=== PATIENT | female | born 1935 | race Caucasian/White ===

== ENCOUNTER → 2016-04-08 | Outpatient (CLI) | payer OTHER ==
[~2016-04-08] MED LIST: ACET-1175 PO; ALPR0.5T PO; ALPR1TAB2 PO; ASPCH81X PO; ATOR10TA88 PO; ATRINS INH; CALCIUM CARBONATE PO; CALCTAB7 PO; CHOL20009 PO; CMD2 PO; CRAN1CAP15 PO; CRD200 PO; DOCU100C31 PO; DOXY1TAB6 PO; FURO40TA3 PO; GABA1CAP4 PO; GFNSR600 PO; ISOS30TA3 PO; LEVO-519 PO; LPT/40 PO; LVQ750 PO; METO-551 PO; METO25TA3 PO; METO50TA7 PO; PANT1TAB48 PO; POLYSOL4 OPB; POTA-327 PO; POTA10CA28 PO; PRED1SUS3 OPL; PRLSR20 PO; VALA1TAB31 PO; WARF3TAB6 PO; WARF5TAB7 PO; XPNINS1255 INH; ZNT/150 PO
[2016-04-08 08:41] LABS: INR 1.6 (0.9-1.1); PROTHROMBIN TIME (PATIENT) 17.7 SECONDS (9.0-12.0)
== END | disposition home or self-care (01) ==
LOC: C.LABCC 07:46
PROVIDERS: ATTEND Internal Medicine
DX: I48.91 Unspecified atrial fibrillation (principal)

== ENCOUNTER → 2016-04-10 | Outpatient (CLI) | payer OTHER ==
[~2016-04-10] MED LIST changes: +ALPR-411 PO; +AMIO200T4 PO; +ATOR10TA82 PO; -ATOR10TA88 PO; +CEPH500C PO; +CEPH500C2 PO; +CRANCAP4 PO; +DIPH1TAB87 PO; +FRS/40 PO; +KETO2SHA TOP; +LCTX PO; +METO25TA56 PO; +MICO12CR; +PANT1TAB3 PO; -PANT1TAB48 PO
[2016-04-10 12:16] LABS: INR 1.6 (0.9-1.1); PROTHROMBIN TIME (PATIENT) 17.8 SECONDS (9.0-12.0)
== END ==
LOC: C.LABCC 11:39
PROVIDERS: ATTEND Internal Medicine
DX: I48.91 Unspecified atrial fibrillation (principal)

== ENCOUNTER → 2016-04-15 | Outpatient (CLI) | payer OTHER ==
[~2016-04-15] MED LIST changes: -ALPR-411 PO; -AMIO200T4 PO; -ATOR10TA82 PO; +ATOR10TA88 PO; -CEPH500C PO; -CEPH500C2 PO; -CRANCAP4 PO; -DIPH1TAB87 PO; -FRS/40 PO; -KETO2SHA TOP; -LCTX PO; -METO25TA56 PO; -MICO12CR; -PANT1TAB3 PO; +PANT1TAB48 PO
[2016-04-15 08:45] LABS: INR 2.2 (0.9-1.1); PROTHROMBIN TIME (PATIENT) 24.8 SECONDS (9.0-12.0)
== END ==
LOC: C.LABCC 08:14
PROVIDERS: ATTEND Internal Medicine
DX: I48.91 Unspecified atrial fibrillation (principal)

== ENCOUNTER → 2016-04-27 | Outpatient (CLI) | payer OTHER ==
[2016-04-28 00:34] LABS: BASO % 0.4 %; BASO ABS # 0.03 K/uL (0-0.2); HEMATOCRIT 38.4 % (37-47); IG% 0.1 %; LYMPH % 8.3 %; LYMPH ABS # 0.58 K/uL (1.2-3.4); MEAN CELL VOLUME 82.9 fL (80-100); MEAN CORPUSCULAR HEMOGLOBIN 26.3 pg (25-34); MEAN CORPUSCULAR HGB CONC 31.8 g/dl (32-36); MEAN PLATELET VOLUME 10.4 fL (7.4-10.4); NEUT % 70.2 %; PLATELET COUNT 266 K/uL (130-400); RED BLOOD COUNT 4.63 M/uL (4.2-5.4)
[2016-04-28 01:01] LABS: BLOOD UREA NITROGEN 29 mg/dl (7-18); CALCIUM 9.6 mg/dl (8.5-10.1); CARBON DIOXIDE 28 mmol/L (21-32); CHLORIDE 102 mmol/L (98-107); GLUCOSE 132 mg/dl (70-99); SODIUM 140 mmol/L (136-145)
[2016-04-28 01:18] LABS: URINE APPEARANCE TURBID (CLEAR); URINE BILIRUBIN NEG (NEG); URINE COLOR YELLOW; URINE EPITHELIAL CELL AUTO >30 /lpf (0-5); URINE NITRITE NEG (NEG); URINE PH 7.5 (4.5-7.5); URINE SPECIFIC GRAVITY 1.017 (1.000-1.030); UROBILINOGEN NEG (NEG)
[2016-04-28 01:34] LABS: ANISOCYTOSIS PRESENT; COMPLETE YES; POLYCHROMASIA 1+
[2016-04-28 01:36] LABS: MANUAL MICROSCOPIC REQUIRED? NO; REVIEW REQ? YES; SULFASALICYLIC ACID POS (NEG)
== END ==
LOC: C.LABCC 22:30
PROVIDERS: ATTEND Internal Medicine
DX: R41.82 Altered mental status, unspecified (principal)

== ENCOUNTER → 2016-04-29 | Outpatient (CLI) | payer OTHER ==
[2016-04-29 08:49] LABS: INR 1.6 (0.9-1.1); PROTHROMBIN TIME (PATIENT) 17.6 SECONDS (9.0-12.0)
== END ==
LOC: C.LABCC 08:16
PROVIDERS: ATTEND Internal Medicine
DX: I48.91 Unspecified atrial fibrillation (principal)

== ENCOUNTER → 2016-04-30 | Outpatient (CLI) | payer OTHER ==
[2016-04-30 08:43] LABS: INR 1.6 (0.9-1.1); PROTHROMBIN TIME (PATIENT) 17.4 SECONDS (9.0-12.0)
== END ==
LOC: C.LABCC 08:06
PROVIDERS: ATTEND Internal Medicine
DX: I48.91 Unspecified atrial fibrillation (principal)

== ENCOUNTER 2016-05-01 12:32 | Inpatient (IN) | payer OTHER ==
[~2016-05-01] VITALS: Ht 154.9 cm; Wt 107.2 kg
[~2016-05-01 12:32] MED LIST changes: -ATOR10TA88 PO; -ATRINS INH; -CALCTAB7 PO; -CMD2 PO; -DOCU100C31 PO; -FURO40TA3 PO; -GFNSR600 PO; -LEVO-519 PO; -LVQ750 PO; -METO-551 PO; -PANT1TAB48 PO; -POLYSOL4 OPB; -POTA10CA28 PO; -WARF3TAB6 PO; -XPNINS1255 INH
--- NOTE | 2016-05-01 13:08 | DIAGNOSTIC IMAGING REPORT ---
CHEST ONE VIEW PORTABLE CLINICAL HISTORY: sepsis COMPARISON STUDY: 02/05/2015 FINDINGS: The study is rotated. The heart is mildly enlarged. There is mild mediastinal soft tissue prominence unchanged the prior study. There is aortic tortuosity. There is been interval removal of the right internal jugular central venous catheter. There is mild elevation of the interstitium, a finding suggesting mild pulmonary vascular congestion. There is no focal pulmonary consolidation. There are no pleural effusions.[ IMPRESSION: Rotated portable study. Elevation of the interstitium consistent with mild pulmonary vascular congestion. Clinical and radiographic follow-up is recommended Electronically signed by: Lincoln Hilario M.D. 05/01/2016 1:06 PM Dictated Date/Time: 05/01/2016 1:05 PM
--- NOTE | 2016-05-01 13:19 | EMERGENCY ROOM VISIT NOTE ---
History Report prepared by Lynn: Florentino Cardenas Under the Supervision of: Dr. Marti Mota M.D. First contact with patient: 12:56 Chief Complaint: RESPIRATORY DISTRESS Stated Complaint: LETHARGIC Nursing Triage Summary: Pt to ED via [facility] from [facility]. Per report, pt noted to be lethargic over the weekend. Recently diagnosed with pneumonia and positive urine culture. Started on IM rocephin last Friday. Pt alert and oriented X4. SPO2 90-91% room air. Lungs rhonchi throughout. BP earlier today 70/40. History of Present Illness The patient is a 80 year old female who presents to the Emergency Room with complaints of worsening respiratory distress that started prior to arrival today. Per the nursing staff, the patient has been lethargic over the past few days, and she was diagnosed with pneumonia and a positive urine culture recently. The patient was started on Rocephin last Friday. The patient is currently sleepy and her O2 saturation is 90-91% on room air. The patient denies any abdominal pain. She is from [facility]. History limited secondary to lethargy. Source of History: nursing staff History Limited By: other (lethargy) Onset: Prior to arrival today Position: other (global - respiratory distress) Timing: worsening Associated Symptoms: No abdominal pain Note: Associated symptoms: Lethargy. Review of Systems ROS limited secondary to lethargy. Past Medical & Surgical Medical Problems: (1) CKD (chronic kidney disease), stage III (2) Coronary artery disease (3) Degenerative joint disease (4) Diverticular disease of colon (5) Dyslipidemia (6) Essential tremor (7) GERD (gastroesophageal reflux disease) (8) History of transient ischemic attack (9) Hypertension (10) Osteoporosis (11) Recurrent herpes simplex (12) Spinal stenosis of lumbar region Surgical Problems: (1) Status post coronary artery bypass grafting Family History Hypertension Social History Smoking Status: Never Smoker Alcohol Use: none Drug Use: none Marital Status: single Housing Status: skilled nursing Occupation Status: retired Current/Historical Medications Scheduled Alprazolam (Xanax), 1 TAB PO BID Alprazolam (Xanax), 0.5 MG PO QAM Amiodarone HCl (Amiodarone HCl), 100 MG PO QAM Aspirin (Aspirin Chewable), 81 MG PO QAM Atorvastatin (Lipitor), 10 MG PO DAILY Calcium Carbonate-Vitamin D W/ (Caltrate 600 Plus), 1 TAB PO DAILY Cholecalciferol (Vitamin D), 1 TAB PO QAM Cranberry-Vitamin C-Vitamin E (Cranberry), 1 CAP PO QAM Docusate Sodium (Docusate Sodium), 2 CAP PO HS Furosemide (Lasix), 40 MG PO DAILY Gabapentin (Gabapentin), 300 MG PO BID Isosorbide Mononitrate Ext Rel (Imdur Ext Rel), 30 MG PO QAM Levothyroxine Sodium (Synthroid), 1 TAB PO DAILY Metoprolol Tartrate (Lopressor), 50 MG PO QAM Metoprolol Tartrate (Lopressor), 25 MG PO HS Pantoprazole (Protonix), 1 TAB PO DAILY Polyethylene Glycol-Propylene (Systane), 1 DROPS OPB DAILY Potassium Chloride (Micro-K Ext Rel), 10 MEQ PO DAILY Ranitidine Hcl (Zantac), 150 MG PO HS Valacyclovir Hcl (Valtrex), 1 GM PO QAM Warfarin Sod (Jantoven), 3 MG PO PM Scheduled PRN Acetaminophen (Tylenol), 650 MG PO BID PRN for Pain or Fever Allergies Coded Allergies: Valproic Acid and Related (Verified Allergy, Mild, Depakote,face flushing. , 04/05/15) Cortisone (Verified Adverse Reaction, Mild, Cortisone shot, face flushing. , 04/05/15) Physical Exam Vital Signs Date Time Temp Pulse Resp B/P Pulse Ox O2 Delivery O2 Flow Rate FiO2 05/01/16 15:36 71 16 107/55 99 Nasal Cannula 2.0 05/01/16 14:27 67 20 96/53 100 Mask Nebulizer 05/01/16 13:05 93 Nasal Cannula 2.0 05/01/16 12:50 89 Room Air 05/01/16 12:43 91 Room Air 05/01/16 12:43 90 Room Air 05/01/16 12:43 37.2 71 18 95/45 90 Room Air 05/01/16 12:41 71 Physical Exam CONSTITUTIONAL: Appears lethargic, protecting airway, awake when prompted. Morbidly obese. HEENT: No icterus, moist mucous membranes NECK: No meningismus, trachea is midline. CARDIOVASCULAR: Regular rate, normal perfusion RESPIRATORY: Coarse breath sounds bilaterally, wheezing bilaterally. GASTROINTESTINAL: Non-tender GENITOURINARY: No flank tenderness MUSCULOSKELETAL: Full range of motion NEUROLOGIC: No acute gross focal deficits. PSYCHIATRIC: Normal affect SKIN: Normal for ethnicity. Medical Decision & Procedures ER Provider Diagnostic Interpretation: X-ray results as stated below per my interpretation and radiologist interpretation. Other radiology results as stated below per my review and radiologist interpretation. CHEST ONE VIEW PORTABLE CLINICAL HISTORY: sepsis COMPARISON STUDY: 02/05/2015 FINDINGS: The study is rotated. The heart is mildly enlarged. There is mild mediastinal soft tissue prominence unchanged the prior study. There is aortic tortuosity. There is been interval removal of the right internal jugular central venous catheter. There is mild elevation of the interstitium, a finding suggesting mild pulmonary vascular congestion. There is no focal pulmonary consolidation. There are no pleural effusions.[ IMPRESSION: Rotated portable study. Elevation of the interstitium consistent with mild pulmonary vascular congestion. Clinical and radiographic follow-up is recommended Electronically signed by: Lincoln Hilario M.D. 05/01/2016 1:06 PM Dictated Date/Time: 05/01/2016 1:[address] HEAD WITHOUT CONTRAST (CT) CLINICAL HISTORY: Acute change in mental status COMPARISON STUDY: 05/14/2013 TECHNIQUE: Axial CT of the brain is performed from the vertex to the skull base. IV contrast was not administered for this examination. CT DOSE: 537.48 mGy.cm FINDINGS: No intra or extra-axial mass lesions are visualized. There is no CT evidence of acute cortical infarction. There is no evidence of midline shift. There is no acute hemorrhage. No calvarial fractures are visualized. There are patchy white matter hypodensities likely on a small vessel basis. There is no evidence of pathologic ventricular dilatation. There is trace mucosal thickening and fluid within the right maxillary sinus. There is sphenoid sinus air-fluid levels. There is moderate mucosal disease within the ethmoid sinuses. There are frontal sinus air-fluid levels. There is a new left mastoid effusion. IMPRESSION: 1. Pansinus disease 2. New left mastoid effusion 2. Otherwise no acute intracranial findings Electronically signed by: Lincoln Hilario M.D. 05/01/2016 2:05 PM Dictated Date/Time: 05/01/2016 2:[address] OF THE CHEST WITHOUT IV CONTRAST CLINICAL HISTORY: Altered mental status. Possible sepsis. COMPARISON STUDY: Chest CT February 03, 2015 and chest radiograph May 01, 2016. TECHNIQUE: Axial images of the chest were obtained without IV contrast. Images were reviewed in the axial, sagittal, and coronal planes. IV contrast was not administered for this examination. FINDINGS: There are median sternotomy wires and findings consistent with bypass grafting. Moderate cardiomegaly is noted with no pericardial effusion. There is extensive coronary artery calcification. No pneumothorax or pleural effusion is present. The lungs are suboptimally assessed due to respiratory motion artifact. Note is again made of narrowing of the AP diameter of the trachea and mainstem bronchi suggesting tracheomalacia. There is mild diffuse proximal wall thickening. Subpleural opacities represent atelectasis. Groundglass opacity within the right lower lobe favors atelectasis. There is no convincing evidence for pneumonia. Bony thorax is unremarkable. The abdomen and pelvis will be reported separately. IMPRESSION: 1. Scattered mild groundglass opacities, most evident within the right lower lobe. Atelectasis is favored. An mild infectious process could appear similar. 2. 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 3. Moderate cardiomegaly and extensive coronary artery calcification. Electronically signed by: Marcel Angel M.D. 05/01/2016 3:01 PM Dictated Date/Time: 05/01/2016 2:55 PM [address] AND PELVIS CT WITHOUT CONTRAST CT DOSE: 3220.15 mGy.cm HISTORY: sepsis TECHNIQUE: Multiaxial CT images of the abdomen and pelvis were performed without the use of intravenous and oral contrast according to the standard department stone protocol. COMPARISON STUDY: Abdomen and pelvis CT 10/25/2015. FINDINGS: Patchy densities at the base of the right lower lobe. There are poststernotomy changes. Question of tiny stones or sludge within the gallbladder.. Hepatic steatosis. No gallbladder wall thickening. The spleen, adrenal glands, and pancreas are unremarkable. Normal right kidney. A 5 mm nonobstructing stone within the left renal pelvis. No hydronephrosis. The bladder is not well-distended. The uterus and bilateral ovaries are unremarkable. 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 No retroperitoneal lymphadenopathy. Stable mildly enlarged portacaval lymph node. Suboptimal evaluation for bowel pathology due to the lack of intravenous and oral contrast. However, there is no definite bowel wall thickening or obstruction. A few colonic diverticula. Normal appendix. IMPRESSION: 1. No significant change compared to the prior study. 2. A 5 mm left renal pelvis calcification. No hydronephrosis. 3. No definite bowel wall thickening or obstruction. 4. A stable 9 mm saccular aneurysm within the distal abdominal aorta. 5. Patchy densities within the base of the right lower lobe. This could represent atelectasis or pneumonia. 6. Question of tiny stones or sludge within the gallbladder. No gallbladder wall thickening. 7. Hepatic steatosis. Electronically signed by: Hiro Alexandra M.D. 05/01/2016 3:14 PM Dictated Date/Time: 05/01/2016 2:57 PM Laboratory Results 05/01/16 13:20 Red Blood Count 3.94, Mean Corpuscular Volume 84.8, Mean Corpuscular Hemoglobin 26.1, Mean Corpuscular Hemoglobin Concent 30.8, Mean Platelet Volume 9.7, Neutrophils (%) (Auto) 45.4, Lymphocytes (%) (Auto) 37.8, Monocytes (%) (Auto) 15.7, Eosinophils (%) (Auto) 0.5, Basophils (%) (Auto) 0.4, Neutrophils # (Auto ) 2.48, Lymphocytes # (Auto) 2.07, Monocytes # (Auto) 0.86, Eosinophils # (Auto ) 0.03, Basophils # (Auto) 0.02 05/01/16 13:20 Test 05/01/16 13:20 05/01/16 13:23 05/01/16 13:44 05/01/16 14:20 White Blood Count 5.47 K/uL (4.8-10.8) Red Blood Count 3.94 M/uL (4.2-5.4) Hemoglobin 10.3 g/dL (12.0-16.0) Hematocrit 33.4 % (37-47) Mean Corpuscular Volume 84.8 fL (80-100) Mean Corpuscular Hemoglobin 26.1 pg (25-34) Mean Corpuscular Hemoglobin Concent 30.8 g/dl (32-36) Platelet Count 250 K/uL (130-400) Mean Platelet Volume 9.7 fL (7.4-10.4) Neutrophils (%) (Auto) 45.4 % Lymphocytes (%) (Auto) 37.8 % Monocytes (%) (Auto) 15.7 % Eosinophils (%) (Auto) 0.5 % Basophils (%) (Auto) 0.4 % Neutrophils # (Auto) 2.48 K/uL (1.4-6.5) Lymphocytes # (Auto) 2.07 K/uL (1.2-3.4) Monocytes # (Auto) 0.86 K/uL (0.11-0.59) Eosinophils # (Auto) 0.03 K/uL (0-0.5) Basophils # (Auto) 0.02 K/uL (0-0.2) RDW Standard Deviation 73.1 fL (36.4-46.3) RDW Coefficient of Variation 23.3 % (11.5-14.5) Immature Granulocyte % (Auto) 0.2 % Immature Granulocyte # (Auto) 0.01 K/uL (0.00-0.02) Anisocytosis PRESENT Prothrombin Time 17.0 SECONDS (9.0-12.0) Prothromb Time International Ratio 1.6 (0.9-1.1) Activated Partial Thromboplast Time 36.3 SECONDS (21.0-31.0) Partial Thromboplastin Ratio 1.4 Anion Gap 7.0 mmol/L (3-11) Est Creatinine Clear Calc Drug Dose 17.7 ml/min Estimated GFR () 17.3 Estimated GFR (Non- 14.9 BUN/Creatinine Ratio 22.9 (10-20) Calcium Level 8.8 mg/dl (8.5-10.1) Magnesium Level 2.9 mg/dl (1.8-2.4) Total Bilirubin 0.2 mg/dl (0.2-1) Direct Bilirubin 0.1 mg/dl (0-0.2) Aspartate Amino Transf (AST/SGOT) 132 U/L (15-37) Alanine Aminotransferase (ALT/SGPT) 45 U/L (12-78) Alkaline Phosphatase 54 U/L (45-117) Total Protein 8.1 gm/dl (6.4-8.2) Albumin 2.6 gm/dl (3.4-5.0) Bedside Lactic Acid Venous 1.05 mmol/L (0.90-1.70) Venous Blood pH 7.27 (7.36-7.41) Venous Blood Partial Pressure CO2 64 mmHg (38.0-50.0) Venous Blood Partial Pressure O2 27 mmHg Venous Blood HCO3 28 mmol/L Venous Blood Oxygen Saturation < 60.0 % Venous Blood Base Excess 0.1 mmol/L Urine Color DK YELLOW Urine Appearance CLOUDY (CLEAR) Urine pH 5.0 (4.5-7.5) Urine Specific [place] 1.014 (1.000-1.030) Urine Protein TRACE (NEG) Urine Glucose (UA) NEG (NEG) Urine Ketones NEG (NEG) Urine Occult Blood 1+ (NEG) Urine Nitrite NEG (NEG) Urine Bilirubin NEG (NEG) Urine Urobilinogen NEG (NEG) Urine Leukocyte Esterase NEG (NEG) Urine WBC (Auto) 5-10 /hpf (0-5) Urine RBC (Auto) 0-4 /hpf (0-4) Urine Hyaline Casts (Auto) 5-10 /lpf (0-5) Urine Epithelial Cells (Auto) >30 /lpf (0-5) Urine Bacteria (Auto) NEG (NEG) Urine Renal Epithelial Cells 0-5 /lpf (0-5) Urine Pathogenic Casts 1-5 GRANULAR CASTS /lpf (0) Urine Yeast (Auto) (NONE PRSENT) Urine Opiates Screen NEG (NEG) Urine Methadone, Qualitative NEG (NEG) Urine Barbiturates NEG (NEG) Urine Phencyclidine (PCP) Level NEG (NEG) Ur Amphetamine/Methamphetamine NEG (NEG) MDMA (Ecstasy) Screen NEG (NEG) Urine Benzodiazepines Screen POS (NEG) Urine Cocaine Metabolite NEG (NEG) Urine Marijuana (THC) NEG (NEG) Labs reviewed by ED physician. Medications Administered Medications (Trade) Dose Ordered Sig/Koko Route Start Time Stop Time Status Last Admin Dose Admin Albuterol/ Ipratropium (Duoneb) 3 ml QIDR INH 05/01/16 16:00 05/31/16 15:59 05/01/16 16:00 3 ML Albuterol/ Ipratropium 3 ml 3 ml STK-MED ONCE .ROUTE 05/01/16 14:05 05/01/16 14:07 DC 05/01/16 14:09 3 ML Sodium Chloride (Nss 1000ml) 1,000 ml @ 0 mls/hr Q0M STAT IV 05/01/16 15:14 05/01/16 15:20 DC 05/01/16 15:35 0 MLS/HR Piperacillin Sod/ Tazobactam Sod (Zosyn Iv) 4.5 gm NOW STAT IV 1/25/17 15:14 05/01/16 15:20 DC 05/01/16 15:38 4.5 GM Levofloxacin 500 mg 500 mg NOW ONCE IV 05/01/16 15:15 05/01/16 15:20 DC 05/01/16 16:26 500 MG Vancomycin HCl/ Sodium Chloride (Vancomycin Inj/ Nss 250ml) 270 ml @ 125 mls/hr NOW STAT IV 05/01/16 15:14 05/01/16 17:23 05/01/16 16:07 125 MLS/HR ECG Indication: SOB/dyspnea Rate (beats per minute): 70 Rhythm: normal sinus Findings: other (normal axis, nonspecific-ST findings) ED Course 1258: Past medical records reviewed. The patient was evaluated in room B6. A complete history and physical examination was performed. 1514: Ordered Vancomycin HCl 1000 mg/NSS 270 ml @ 125 mls/hr IV, Zosyn IV 4.5 gm IV, NSS 1000 ml @ 0 mls/hr Wide Open IV. 1515: Ordered Levaquin/D5W 500 mg IV. 1600: Ordered Duoneb 3 ml INH. 1618: I reevaluated the patient. The patient expressed agreement and understanding of the treatment plan. The patient will be evaluated for further treatment. 1619: I discussed the patient with Dr. Mata - [facility] [place] [facility] [place] - he will evaluate the patient for further treatment. Medical Decision Differential diagnosis: Etiologies such as sepsis, UTI, pneumonia, metabolic, electrolyte abnormalities , cardiac sources, intracerebral event, toxicologic, neurologic, as well as others were entertained. 80-year-old was brought to the emergency Department from [facility] for evaluation of presumed sepsis. It is reported in the transfer paperwork that she has been treated with a pneumonia as well as a UTI with IM Rocephin homicidal blood pressure as low as 70/40 at [facility]. Personally, patient is awake when prompted but otherwise appears lethargic. She is noted to be on several medications which may be psychoactive and urine tox was subsequently sent. It is unclear on my initial evaluation to what degree her presenting complaints are septic or possibly medication related. She was hydrated with IV fluid bolus and given Levaquin, Zosyn and vancomycin. Imaging was notable for concerns over pneumonia. This discussed with Dr. Mata at 4:30 PM and admission arranged. Patient remained mildly hypotensive at times but otherwise hemodynamically stable throughout emergency Department course. Patient is noted to be DO NOT RESUSCITATE and this mentphill was confirmed and on the chart. I do have concern the patient may need to be intubated should she deteriorate and I had asked staff to try to reach out to medical power of deputy prosecuting attorney for further discussion around this issue. Consults Time Called: 1615 Consulting Physician: Dr. Adolfo BECKFORD [facility] Returned Call: [phone] I discussed the patient with Dr. Adolfo BECKFORD [facility] - he will evaluate the patient for further treatment. Impression Primary Impression: Sepsis Additional Impression: PNA (pneumonia) Critical Care Critical Care time 30 mins Scribe Attestation The scribe's documentation has been prepared under my direction and personally reviewed by me in its entirety. I confirm that the note above accurately reflects all work, treatment, procedures, and medical decision making performed by me. Departure Information Dispostion Being Evaluated By Hospitalist Referrals [place] (PCP) Patient Instructions Asthma - [facility], COPD - [facility], Croup - [facility], My [facility] Health Problem Qualifiers
[2016-05-01 13:37] LABS: BASO % 0.4 %; BASO ABS # 0.02 K/uL (0-0.2); EOS % 0.5 %; HEMATOCRIT 33.4 % (37-47); IG% 0.2 %; LYMPH % 37.8 %; LYMPH ABS # 2.07 K/uL (1.2-3.4); MEAN CELL VOLUME 84.8 fL (80-100); MEAN CORPUSCULAR HEMOGLOBIN 26.1 pg (25-34); MEAN CORPUSCULAR HGB CONC 30.8 g/dl (32-36); MEAN PLATELET VOLUME 9.7 fL (7.4-10.4); MONO % 15.7 %; NEUT % 45.4 %; PLATELET COUNT 250 K/uL (130-400); RED BLOOD COUNT 3.94 M/uL (4.2-5.4); WHITE BLOOD COUNT 5.47 K/uL (4.8-10.8)
[2016-05-01 13:44] LABS: INR 1.6 (0.9-1.1); PARTIAL THROMBOPLASTIN RATIO 1.4
[2016-05-01 14:03] LABS: ANISOCYTOSIS PRESENT; COMPLETE YES
[2016-05-01 14:04] LABS: BUN/CREATININE RATIO 22.9 (10-20); CALCIUM 8.8 mg/dl (8.5-10.1); CREATININE 2.9 mg/dl (0.60-1.20); MAGNESIUM 2.9 mg/dl (1.8-2.4); POTASSIUM 5.7 mmol/L (3.5-5.1)
[2016-05-01] MEDS ORDERED: ALBUT/IPRATROP 3MG/0.5MG NEB 3 ML VIAL ONE (14:05)
[2016-05-01 14:06] LABS: VEN BLD GAS O2 SATURATION < 60.0 %; VEN BLOOD GAS BASE EXCESS 0.1 mmol/L; VENOUS BLOOD GAS PCO2 64 mmHg (38.0-50.0); VENOUS BLOOD GAS PO2 27 mmHg
--- NOTE | 2016-05-01 14:07 | DIAGNOSTIC IMAGING REPORT ---
CT HEAD WITHOUT CONTRAST (CT) CLINICAL HISTORY: Acute change in mental status COMPARISON STUDY: 05/14/2013 TECHNIQUE: Axial CT of the brain is performed from the vertex to the skull base. IV contrast was not administered for this examination. CT DOSE: 537.48 mGy.cm FINDINGS: No intra or extra-axial mass lesions are visualized. There is no CT evidence of acute cortical infarction. There is no evidence of midline shift. There is no acute hemorrhage. No calvarial fractures are visualized. There are patchy white matter hypodensities likely on a small vessel basis. There is no evidence of pathologic ventricular dilatation. There is trace mucosal thickening and fluid within the right maxillary sinus. There is sphenoid sinus air-fluid levels. There is moderate mucosal disease within the ethmoid sinuses. There are frontal sinus air-fluid levels. There is a new left mastoid effusion. IMPRESSION: 1. Pansinus disease 2. New left mastoid effusion 2. Otherwise no acute intracranial findings Electronically signed by: Lincoln Hilario M.D. 05/01/2016 2:05 PM Dictated Date/Time: 05/01/2016 2:03 PM
[2016-05-01] MEDS ORDERED: PANT1TAB48 PO (14:44)
[2016-05-01] MEDS ORDERED: POLYSOL4 OPB (14:44)
[2016-05-01] MEDS ORDERED: CALCTAB7 PO (14:44)
[2016-05-01] MEDS ORDERED: FURO40TA3 PO (14:44)
[2016-05-01] MEDS ORDERED: WARF3TAB6 PO (14:44)
[2016-05-01] MEDS ORDERED: ATOR10TA88 PO (14:44)
[2016-05-01] MEDS ORDERED: DOCU100C31 PO (14:44)
[2016-05-01] MEDS ORDERED: POTA10CA28 PO (14:44)
[2016-05-01] MEDS ORDERED: LEVO-519 PO (14:44)
[2016-05-01 14:45] LABS: URINE APPEARANCE CLOUDY (CLEAR); URINE BILIRUBIN NEG (NEG); URINE COLOR DK YELLOW; URINE EPITHELIAL CELL AUTO >30 /lpf (0-5); URINE NITRITE NEG (NEG); URINE SPECIFIC GRAVITY 1.014 (1.000-1.030); UROBILINOGEN NEG (NEG)
[2016-05-01 14:54] LABS: MANUAL MICROSCOPIC REQUIRED? NO; REVIEW REQ? YES
[2016-05-01] MEDS ORDERED: METO-551 PO ×2 (14:58)
[2016-05-01 15:03] LABS: BENZODIAZEPINE, URINE POS (NEG); COCAINE,URINE NEG (NEG); PHENCYCLIDINE, URINE NEG (NEG)
--- NOTE | 2016-05-01 15:03 | DIAGNOSTIC IMAGING REPORT ---
CT OF THE CHEST WITHOUT IV CONTRAST CLINICAL HISTORY: Altered mental status. Possible sepsis. COMPARISON STUDY: Chest CT February 03, 2015 and chest radiograph May 01, 2016. TECHNIQUE: Axial images of the chest were obtained without IV contrast. Images were reviewed in the axial, sagittal, and coronal planes. IV contrast was not administered for this examination. FINDINGS: There are median sternotomy wires and findings consistent with bypass grafting. Moderate cardiomegaly is noted with no pericardial effusion. There is extensive coronary artery calcification. No pneumothorax or pleural effusion is present. The lungs are suboptimally assessed due to respiratory motion artifact. Note is again made of narrowing of the AP diameter of the trachea and mainstem bronchi suggesting tracheomalacia. There is mild diffuse proximal wall thickening. Subpleural opacities represent atelectasis. Groundglass opacity within the right lower lobe favors atelectasis. There is no convincing evidence for pneumonia. Bony thorax is unremarkable. The abdomen and pelvis will be reported separately. IMPRESSION: 1. Scattered mild groundglass opacities, most evident within the right lower lobe. Atelectasis is favored. An mild infectious process could appear similar. 2. 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 3. Moderate cardiomegaly and extensive coronary artery calcification. Electronically signed by: Marcel Angel M.D. 05/01/2016 3:01 PM Dictated Date/Time: 05/01/2016 2:55 PM
[2016-05-01] MEDS ORDERED: PIPERACILLIN/TAZOBACTAM 4.5 GM/100ML D5W IV STA (15:14)
[2016-05-01] MEDS ORDERED: SODIUM CHLORIDE 0.9% 1000ML 1,000 ML IV STA (15:14)
[2016-05-01] MEDS ORDERED: VANCOMYCIN INJ 1,000 MG in SODIUM CHLORIDE 0.9% 250ML 250 ML IV STA (15:14)
[2016-05-01 15:15] LABS: URINE PATH CASTS 1-5 GRANULAR CASTS /lpf (0)
[2016-05-01] MEDS ORDERED: LEVAQUIN 500MG / 100ML D5W IV ONE (15:15)
--- NOTE | 2016-05-01 15:16 | DIAGNOSTIC IMAGING REPORT ---
ABDOMEN AND PELVIS CT WITHOUT CONTRAST CT DOSE: 3220.15 mGy.cm HISTORY: sepsis TECHNIQUE: Multiaxial CT images of the abdomen and pelvis were performed without the use of intravenous and oral contrast according to the standard department stone protocol. COMPARISON STUDY: Abdomen and pelvis CT 10/25/2015. FINDINGS: Patchy densities at the base of the right lower lobe. There are poststernotomy changes. Question of tiny stones or sludge within the gallbladder.. Hepatic steatosis. No gallbladder wall thickening. The spleen, adrenal glands, and pancreas are unremarkable. Normal right kidney. A 5 mm nonobstructing stone within the left renal pelvis. No hydronephrosis. The bladder is not well-distended. The uterus and bilateral ovaries are unremarkable. 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 No retroperitoneal lymphadenopathy. Stable mildly enlarged portacaval lymph node. Suboptimal evaluation for bowel pathology due to the lack of intravenous and oral contrast. However, there is no definite bowel wall thickening or obstruction. A few colonic diverticula. Normal appendix. IMPRESSION: 1. No significant change compared to the prior study. 2. A 5 mm left renal pelvis calcification. No hydronephrosis. 3. No definite bowel wall thickening or obstruction. 4. A stable 9 mm saccular aneurysm within the distal abdominal aorta. 5. Patchy densities within the base of the right lower lobe. This could represent atelectasis or pneumonia. 6. Question of tiny stones or sludge within the gallbladder. No gallbladder wall thickening. 7. Hepatic steatosis. Electronically signed by: Hiro Alexandra M.D. 05/01/2016 3:14 PM Dictated Date/Time: 05/01/2016 2:57 PM
[2016-05-01] MEDS: ALBUT/IPRATROP 3MG/0.5MG NEB 3 ML VIAL INH SCH ×3 (16:00→20:15)
[2016-05-01] MEDS ORDERED: NITROGLYCERIN 0.4 MG SL PER TAB CHARGE SL PRN (16:45)
[2016-05-01] MEDS ORDERED: POLYETHYLENE (MIRALAX) 17 GM PACK PO PRN (16:45)
[2016-05-01] MEDS: SODIUM CHLORIDE 0.9% 1000ML 1,000 ML IV SCH (16:45)
[2016-05-01] MEDS ORDERED: ACETAMINOPHEN 325 MG TAB PO PRN (16:45)
[2016-05-01] MEDS ORDERED: MAGNESIUM HYDROXIDE SUSP 30 ML UDC PO PRN (16:45)
[2016-05-01] MEDS ORDERED: ONDANSETRON INJ 2 MG/ML 2 ML VIAL IV PRN (16:45)
[2016-05-01] MEDS ORDERED: ALUMINUM/MAGNESIUM/SIMETH (MAALOX MAX) 30 ML UDC PO PRN (16:45)
--- NOTE | 2016-05-01 17:21 | History and Physical ---
History & Physical Date & Time of Service: May 01, 2016 at 16:56 Chief Complaint: Lethargic Primary Care Physician: Marlen Thomas History of Present Illness Source: patient Patient is a pleasant 80 y/o female, with PMHx of a.fib, CKD stage III, dyslipidemia, CAD, GERD, hypothyroidism, TIA, and anxiety, who presented to the ED from [place] [facility] because of worsening lethargy and failed treatment of Rocephin for pneumonia/UTI. Per [facility] records, patient became lethargic over the weekend. CXR with possible pneumonia and dirty U/A with urine culture growing more than 3 organisms. Patient was started on IM Rocephin on 04/27. Today patient appeared more lethargic and patient was sent to the ED. Patient admits to SOB and a dry cough. +bilateral knee pain. Patient denies any other complaints or significant pain. Limited history/ROS due to patient's status. Past Medical/Surgical History PMHx: 1. A.fib 2. CKD stage III 3. Dyslipidemia 4. CAD 5. GERD 6. TIA 7. Anxiety 8. Herpes Simplex 9. Hypothyroidism 10. Neuropathy Surgical: 1. CABG in 1997. 2. Cardiac cath 2002. 3. delivery. Family History Hypertension Social History Smoking Status: Never Smoker Drug Use: none Marital Status: single Housing status: lives alone Occupational Status: retired Immunizations History of Influenza Vaccine: Unknown Influenza Vaccine Date: Jan 09, 2013 History of Tetanus Vaccine?: Unknown History of Pneumococcal: Unknown History of Hepatitis B Vaccine: Unknown Multi-Drug Resistant Organisms History of MDRO: No Allergies Coded Allergies: Valproic Acid and Related (Verified Allergy, Mild, Depakote,face flushing. , 04/05/15) Cortisone (Verified Adverse Reaction, Mild, Cortisone shot, face flushing. , 04/05/15) Home Medications Scheduled Alprazolam (Xanax), 1 TAB PO BID Alprazolam (Xanax), 0.5 MG PO QAM Amiodarone HCl (Amiodarone HCl), 100 MG PO QAM Aspirin (Aspirin Chewable), 81 MG PO QAM Atorvastatin (Lipitor), 10 MG PO DAILY Calcium Carbonate-Vitamin D W/ (Caltrate 600 Plus), 1 TAB PO DAILY Cholecalciferol (Vitamin D), 1 TAB PO QAM Cranberry-Vitamin C-Vitamin E (Cranberry), 1 CAP PO QAM Docusate Sodium (Docusate Sodium), 2 CAP PO HS Furosemide (Lasix), 40 MG PO DAILY Gabapentin (Gabapentin), 300 MG PO BID Isosorbide Mononitrate Ext Rel (Imdur Ext Rel), 30 MG PO QAM Levothyroxine Sodium (Synthroid), 1 TAB PO DAILY Metoprolol Tartrate (Lopressor), 50 MG PO QAM Metoprolol Tartrate (Lopressor), 25 MG PO HS Pantoprazole (Protonix), 1 TAB PO DAILY Polyethylene Glycol-Propylene (Systane), 1 DROPS OPB DAILY Potassium Chloride (Micro-K Ext Rel), 10 MEQ PO DAILY Ranitidine Hcl (Zantac), 150 MG PO HS Valacyclovir Hcl (Valtrex), 1 GM PO QAM Warfarin Sod (Jantoven), 3 MG PO PM Scheduled PRN Acetaminophen (Tylenol), 650 MG PO BID PRN for Pain or Fever Physical Exam Vital Signs Date Time Temp Pulse Resp B/P Pulse Ox O2 Delivery O2 Flow Rate FiO2 05/01/16 16:53 74 05/01/16 15:36 71 16 107/55 99 Nasal Cannula 2.0 05/01/16 14:27 67 20 96/53 100 Mask Nebulizer 05/01/16 13:05 93 Nasal Cannula 2.0 05/01/16 12:50 89 Room Air 05/01/16 12:43 91 Room Air 05/01/16 12:43 90 Room Air 05/01/16 12:43 37.2 71 18 95/45 90 Room Air 05/01/16 12:41 71 General Appearance: no apparent distress, + obese Head: normocephalic, atraumatic Eyes: PERRL ENT: hearing grossly normal Neck: supple Respiratory/Chest: no respiratory distress, no accessory muscle use, + decreased breath sounds, + rhonchi Cardiovascular: regular rate, rhythm, normal peripheral pulses Abdomen/GI: normal bowel sounds, non tender, soft Extremities/Musculoskelatal: no calf tenderness, no pedal edema Neurologic/Psych: alert Skin: normal color, warm/dry, no rash Diagnostics Laboratory Results Results Past 24 Hours Test 05/01/16 13:20 05/01/16 13:23 05/01/16 13:44 05/01/16 14:20 Range/Units White Blood Count 5.47 4.8-10.8 K/uL Red Blood Count 3.94 4.2-5.4 M/uL Hemoglobin 10.3 12.0-16.0 g/dL Hematocrit 33.4 37-47 % Mean Corpuscular Volume 84.8 80-100 fL Mean Corpuscular Hemoglobin 26.1 25-34 pg Mean Corpuscular Hemoglobin Concent 30.8 32-36 g/dl Platelet Count 250 130-400 K/uL Mean Platelet Volume 9.7 7.4-10.4 fL Neutrophils (%) (Auto) 45.4 % Lymphocytes (%) (Auto) 37.8 % Monocytes (%) (Auto) 15.7 % Eosinophils (%) (Auto) 0.5 % Basophils (%) (Auto) 0.4 % Neutrophils # (Auto) 2.48 1.4-6.5 K/uL Lymphocytes # (Auto) 2.07 1.2-3.4 K/uL Monocytes # (Auto) 0.86 0.11-0.59 K/uL Eosinophils # (Auto) 0.03 0-0.5 K/uL Basophils # (Auto) 0.02 0-0.2 K/uL RDW Standard Deviation 73.1 36.4-46.3 fL RDW Coefficient of Variation 23.3 11.5-14.5 % Immature Granulocyte % (Auto) 0.2 % Immature Granulocyte # (Auto) 0.01 0.00-0.02 K/uL Anisocytosis PRESENT Prothrombin Time 17.0 9.0-12.0 SECONDS Prothromb Time International Ratio 1.6 0.9-1.1 Activated Partial Thromboplast Time 36.3 21.0-31.0 SECONDS Partial Thromboplastin Ratio 1.4 Sodium Level 144 136-145 mmol/L Potassium Level 5.7 3.5-5.1 mmol/L Chloride Level 110 98-107 mmol/L Carbon Dioxide Level 27 21-32 mmol/L Anion Gap 7.0 3-11 mmol/L Blood Urea Nitrogen 67 7-18 mg/dl Creatinine 2.90 0.60-1.20 mg/dl Est Creatinine Clear Calc Drug Dose 17.7 ml/min Estimated GFR () 17.3 Estimated GFR (Non- 14.9 BUN/Creatinine Ratio 22.9 10-20 Random Glucose 105 70-99 mg/dl Calcium Level 8.8 8.5-10.1 mg/dl Magnesium Level 2.9 1.8-2.4 mg/dl Total Bilirubin 0.2 0.2-1 mg/dl Direct Bilirubin 0.1 0-0.2 mg/dl Aspartate Amino Transf (AST/SGOT) 132 15-37 U/L Alanine Aminotransferase (ALT/SGPT) 45 12-78 U/L Alkaline Phosphatase 54 45-117 U/L Total Protein 8.1 6.4-8.2 gm/dl Albumin 2.6 3.4-5.0 gm/dl Bedside Lactic Acid Venous 1.05 0.90-1.70 mmol/L Venous Blood pH 7.27 7.36-7.41 Venous Blood Partial Pressure CO2 64 38.0-50.0 mmHg Venous Blood Partial Pressure O2 27 mmHg Venous Blood HCO3 28 mmol/L Venous Blood Oxygen Saturation < 60.0 % Venous Blood Base Excess 0.1 mmol/L Urine Color DK YELLOW Urine Appearance CLOUDY CLEAR Urine pH 5.0 4.5-7.5 Urine Specific [place] 1.014 1.000-1.030 Urine Protein TRACE NEG Urine Glucose (UA) NEG NEG Urine Ketones NEG NEG Urine Occult Blood 1+ NEG Urine Nitrite NEG NEG Urine Bilirubin NEG NEG Urine Urobilinogen NEG NEG Urine Leukocyte Esterase NEG NEG Urine WBC (Auto) 5-10 0-5 /hpf Urine RBC (Auto) 0-4 0-4 /hpf Urine Hyaline Casts (Auto) 5-10 0-5 /lpf Urine Epithelial Cells (Auto) >30 0-5 /lpf Urine Bacteria (Auto) NEG NEG Urine Renal Epithelial Cells 0-5 0-5 /lpf Urine Pathogenic Casts 1-5 GRANULAR CASTS 0 /lpf Urine Yeast (Auto) NONE PRSENT Urine Opiates Screen NEG NEG Urine Methadone, Qualitative NEG NEG Urine Barbiturates NEG NEG Urine Phencyclidine (PCP) Level NEG NEG Ur Amphetamine/Methamphetamine NEG NEG MDMA (Ecstasy) Screen NEG NEG Urine Benzodiazepines Screen POS NEG Urine Cocaine Metabolite NEG NEG Urine Marijuana (THC) NEG NEG Microbiology Results 05/01/16 Blood Culture, Received Pending 05/01/16 Blood Culture, Received Pending Diagnostic Radiology CHEST ONE VIEW PORTABLE CLINICAL HISTORY: sepsis COMPARISON STUDY: 02/05/2015 FINDINGS: The study is rotated. The heart is mildly enlarged. There is mild mediastinal soft tissue prominence unchanged the prior study. There is aortic tortuosity. There is been interval removal of the right internal jugular central venous catheter. There is mild elevation of the interstitium, a finding suggesting mild pulmonary vascular congestion. There is no focal pulmonary consolidation. There are no pleural effusions.[ IMPRESSION: Rotated portable study. Elevation of the interstitium consistent with mild pulmonary vascular congestion. Clinical and radiographic follow-up is recommended Electronically signed by: Lincoln Hilario M.D. 05/01/2016 1:06 PM Dictated Date/Time: 05/01/2016 1:05 PM The status of this report is Signed. Draft = Not yet reviewed or approved by Radiologist. Signed = Reviewed and approved by Radiologist. CT HEAD WITHOUT CONTRAST (CT) CLINICAL HISTORY: Acute change in mental status COMPARISON STUDY: 05/14/2013 TECHNIQUE: Axial CT of the brain is performed from the vertex to the skull base. IV contrast was not administered for this examination. CT DOSE: 537.48 mGy.cm FINDINGS: No intra or extra-axial mass lesions are visualized. There is no CT evidence of acute cortical infarction. There is no evidence of midline shift. There is no acute hemorrhage. No calvarial fractures are visualized. There are patchy white matter hypodensities likely on a small vessel basis. There is no evidence of pathologic ventricular dilatation. There is trace mucosal thickening and fluid within the right maxillary sinus. There is sphenoid sinus air-fluid levels. There is moderate mucosal disease within the ethmoid sinuses. There are frontal sinus air-fluid levels. There is a new left mastoid effusion. IMPRESSION: 1. Pansinus disease 2. New left mastoid effusion 2. Otherwise no acute intracranial findings Electronically signed by: Lincoln Hilario M.D. 05/01/2016 2:05 PM Dictated Date/Time: 05/01/2016 2:03 PM The status of this report is Signed. Draft = Not yet reviewed or approved by Radiologist. Signed = Reviewed and approved by Radiologist. CT OF THE CHEST WITHOUT IV CONTRAST CLINICAL HISTORY: Altered mental status. Possible sepsis. COMPARISON STUDY: Chest CT February 03, 2015 and chest radiograph May 01, 2016. TECHNIQUE: Axial images of the chest were obtained without IV contrast. Images were reviewed in the axial, sagittal, and coronal planes. IV contrast was not administered for this examination. FINDINGS: There are median sternotomy wires and findings consistent with bypass grafting. Moderate cardiomegaly is noted with no pericardial effusion. There is extensive coronary artery calcification. No pneumothorax or pleural effusion is present. The lungs are suboptimally assessed due to respiratory motion artifact. Note is again made of narrowing of the AP diameter of the trachea and mainstem bronchi suggesting tracheomalacia. There is mild diffuse proximal wall thickening. Subpleural opacities represent atelectasis. Groundglass opacity within the right lower lobe favors atelectasis. There is no convincing evidence for pneumonia. Bony thorax is unremarkable. The abdomen and pelvis will be reported separately. IMPRESSION: 1. Scattered mild groundglass opacities, most evident within the right lower lobe. Atelectasis is favored. An mild infectious process could appear similar. 2. 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 3. Moderate cardiomegaly and extensive coronary artery calcification. Electronically signed by: Marcel Angel M.D. 05/01/2016 3:01 PM Dictated Date/Time: 05/01/2016 2:55 PM The status of this report is Signed. Draft = Not yet reviewed or approved by Radiologist. Signed = Reviewed and approved by Radiologist. ABDOMEN AND PELVIS CT WITHOUT CONTRAST CT DOSE: 3220.15 mGy.cm HISTORY: sepsis TECHNIQUE: Multiaxial CT images of the abdomen and pelvis were performed without the use of intravenous and oral contrast according to the standard department stone protocol. COMPARISON STUDY: Abdomen and pelvis CT 10/25/2015. FINDINGS: Patchy densities at the base of the right lower lobe. There are poststernotomy changes. Question of tiny stones or sludge within the gallbladder.. Hepatic steatosis. No gallbladder wall thickening. The spleen, adrenal glands, and pancreas are unremarkable. Normal right kidney. A 5 mm nonobstructing stone within the left renal pelvis. No hydronephrosis. The bladder is not well-distended. The uterus and bilateral ovaries are unremarkable. 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 No retroperitoneal lymphadenopathy. Stable mildly enlarged portacaval lymph node. Suboptimal evaluation for bowel pathology due to the lack of intravenous and oral contrast. However, there is no definite bowel wall thickening or obstruction. A few colonic diverticula. Normal appendix. IMPRESSION: 1. No significant change compared to the prior study. 2. A 5 mm left renal pelvis calcification. No hydronephrosis. 3. No definite bowel wall thickening or obstruction. 4. A stable 9 mm saccular aneurysm within the distal abdominal aorta. 5. Patchy densities within the base of the right lower lobe. This could represent atelectasis or pneumonia. 6. Question of tiny stones or sludge within the gallbladder. No gallbladder wall thickening. 7. Hepatic steatosis. Electronically signed by: Hiro Alexandra M.D. 05/01/2016 3:14 PM Dictated Date/Time: 05/01/2016 2:57 PM The status of this report is Signed. Draft = Not yet reviewed or approved by Radiologist. Signed = Reviewed and approved by Radiologist. EKG BONITA BLOCK ID:[id number] 01-MAY-2016 12:38:35 [facility] Normal sinus rhythm ST & T wave abnormality, consider anterior ischemia Abnormal ECG When compared with ECG of 10-FEB-2015 09:26, Sinus rhythm has replaced Atrial fibrillation T wave inversion now evident in Anterior leads 25mm/s 10mm/mV 150Hz 8.0 SP2 12SL 241 HD FINN: 12 Referred by: Referred Self Unconfirmed Vent. 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 Given dose of IV Vancomycin in ED - IV NSS @ 125 ml/hr - Place Abreu - DuoNebs QID and PRN - Pending blood cultures - Follow CBC ?UTI: - dirty U/A with urine culture growing more than 3 organism at [facility], started on IM Rocephin on 04/27 - Repeat U/A with no nitrates, leukocytes, or bacteria, although unlikely with recent Rocephin treatment. Coverage with IV Levaquin + Zosyn CKD stage III with LUIS, likely secondary to dehydration: - Cr 2.9. Baseline ~1.0 - Treat with IVF as above - Hold Lasix - Follow PRP Hyperlipidemia: - Continue Lipitor 10 mg PO daily CAD/A.fib: - Continue Amiodarone 100 mg PO QAM - Continue Metoprolol 50 mg PO QAM and 25 mg PO HS - Continue Imdur 30 mg PO daily - Continue Warfarin 3 mg PO QPM- INR of 1.6 on admission Hypokalemia: - Hold Potassium supplement. K level of 5.7 on admission TIA: - Continue ASA 81 mg PO daily Hypothyroidism: - Continue Synthroid 137 mcg PO daily Anxiety: - Continue Xanax 1 mg PO BID + additional 0.5 mg PO QAM GERD: - Continue Zantac and Protonix Neuropathy: - Continue Gabapentin 300 mg PO BID Herpes simplex: - Continue Valtrex 0.001 mg PO QAM DVT prophylaxis: - Coumadin - [place] and SCDs GI Prophylaxis: - Maalox PRN - IV Zofran PRN - Colace and/or Milk of Mag PRN Code Status: - LEVEL V, DNR Dispo: - Resident of [facility] Level of Care Telemetry Resuscitation Status DO NOT RESUSCITATE VTE Prophylaxis VTE Risk Assessment Done? Y/N: Yes Risk Level: Low Given or contraindicated: Warfarin (Coumadin), T.E.D. Stockings, SCD's
[2016-05-01] MEDS ORDERED: PIPERACILL/TAZOBAC CONSULT ACTIVE PRN (18:00)
[2016-05-01] MEDS ORDERED: LEVOFLOXACIN CONSULT ACTIVE PRN (18:00)
[2016-05-01 19:27] VITALS: BP 99/58; PULSE 76; TEMP 36.6; O2SAT 98; Ht 154.9 cm; Wt 107.2 kg
[2016-05-01] MEDS ORDERED: WARFARIN SOD 5 MG TAB PO ONE (19:30)
[2016-05-01] MEDS ORDERED: SODIUM POLYST. SULF SUSP 15G/60ML PO ONE (19:30)
[2016-05-01 20:00] VITALS: O2SAT 98
[2016-05-01 20:15] VITALS: PULSE 76; O2SAT 92
[2016-05-01] MEDS: METOPROLOL TARTRATE 50 MG TAB PO SCH (20:46)
[2016-05-01] MEDS: RANITIDINE HCL 150 MG TAB PO SCH (20:47)
[2016-05-01] MEDS: GABAPENTIN 300 MG CAP PO SCH (20:47)
[2016-05-01] MEDS ORDERED: WARFARIN SOD 3 MG TAB PO SCH (21:00)
[2016-05-01 21:02] LABS: URINE APPEARANCE CLOUDY (CLEAR); URINE BILIRUBIN NEG (NEG); URINE COLOR YELLOW; URINE EPITHELIAL CELL AUTO >30 /lpf (0-5); URINE NITRITE NEG (NEG); URINE SPECIFIC GRAVITY 1.011 (1.000-1.030); UROBILINOGEN NEG (NEG); ZZUR CULT IF INDIC CLEAN CATCH YES
[2016-05-01 21:03] LABS: MANUAL MICROSCOPIC REQUIRED? NO; REVIEW REQ? YES
[2016-05-01 21:10] LABS: URINE PATH CASTS 5-10 GRANULAR CASTS /lpf (0)
[2016-05-01 21:38] LABS: BUN/CREATININE RATIO 25.6 (10-20); CALCIUM 8.6 mg/dl (8.5-10.1); CREATININE 2.6 mg/dl (0.60-1.20); POTASSIUM 4.6 mmol/L (3.5-5.1)
[2016-05-01 23:29] VITALS: BP 102/64; PULSE 74; TEMP 36.5; O2SAT 100
[2016-05-01] MEDS: PIPERACILL/TAZOBAC IV 4.5 GM in DEXTROSE 5% 100ML 100 ML IV SCH (23:33)
[2016-05-02] VITALS (12 sets, daily range): BP systolic 90–106; BP diastolic 54–67; PULSE 70–82; TEMP 36.5–36.9; O2SAT 92–99
[2016-05-02] MEDS: SODIUM CHLORIDE 0.9% 1000ML 1,000 ML IV SCH ×2 (01:16→09:05)
[2016-05-02] MEDS: LEVOTHYROXINE 137 MCG TAB PO SCH (05:18)
[2016-05-02 06:44] LABS: HEMATOCRIT 35.7 % (37-47); MEAN CELL VOLUME 85.4 fL (80-100); MEAN CORPUSCULAR HEMOGLOBIN 24.9 pg (25-34); MEAN CORPUSCULAR HGB CONC 29.1 g/dl (32-36); PLATELET COUNT 222 K/uL (130-400); RED BLOOD COUNT 4.18 M/uL (4.2-5.4); WHITE BLOOD COUNT 4.97 K/uL (4.8-10.8)
[2016-05-02] MEDS: ALBUT/IPRATROP 3MG/0.5MG NEB 3 ML VIAL INH SCH ×4 (06:58→18:54)
[2016-05-02 07:20] LABS: CALCIUM 8.6 mg/dl (8.5-10.1); CREATININE 2.2 mg/dl (0.60-1.20)
--- NOTE | 2016-05-02 07:45 | DIAGNOSTIC IMAGING REPORT ---
CHEST ONE VIEW PORTABLE HISTORY: Abnormal CT. CXR f/u for pneumonia COMPARISON: Chest 05/01/2016. FINDINGS: There are postoperative changes. The heart remains mildly enlarged. Diffuse interstitial thickening persists. No pleural effusions. No pneumothorax. IMPRESSION: No change in the cardiomegaly and diffuse interstitial thickening. This may represent mild congestive change. Electronically signed by: Hiro Alexandra M.D. 05/02/2016 7:44 AM Dictated Date/Time: 05/02/2016 7:43 AM
[2016-05-02] MEDS: METOPROLOL TARTRATE 50 MG TAB PO SCH ×2 (07:56→19:35)
[2016-05-02] MEDS: ATORVASTATIN 10 MG TAB PO SCH (07:56)
[2016-05-02] MEDS: GABAPENTIN 300 MG CAP PO SCH ×2 (07:56→19:34)
[2016-05-02] MEDS: ISOSORBIDE MONONITRATE 30 MG TABCR PO SCH (07:56)
[2016-05-02] MEDS: ASPIRIN 81 MG CHEW PO SCH (07:57)
[2016-05-02] MEDS: CALCIUM 600MG + VIT D 400 IU TAB PO SCH (07:57)
[2016-05-02] MEDS: AMIODARONE 200 MG TAB PO SCH (07:57)
[2016-05-02] MEDS: PANTOprazole SOD 40 MG TAB PO SCH (07:57)
[2016-05-02] MEDS: ALPRAZOLAM 0.5 MG TAB PO SCH ×3 (08:53→16:34)
--- NOTE | 2016-05-02 10:03 | Progress Note ---
Subjective Date of Service: May 02, 2016. Subjective pt is short of breath with loose cough, has cxr with either atypical pnx or HF, last echo is not terrible, will repeat, no diuretics given acute renal failure. Problem List Medical Problems: (1) PNA (pneumonia) Status: Acute (2) Sepsis Status: Acute Review of Systems Constitutional: No chills, No fever, No weakness Respiratory: + cough, + dyspnea on exertion, + shortness of breath Cardiac: + chest pain, No edema Abdomen: No diarrhea, No nausea, No pain, No vomiting Neurologic: + memory loss, + weakness Objective Vital Signs Date Time Temp Pulse Resp B/P Pulse Ox O2 Delivery O2 Flow Rate FiO2 05/02/16 04:04 98 Nasal Cannula 2.0 05/02/16 03:48 36.5 70 18 99/65 99 Nasal Cannula 2.5 05/02/16 00:00 98 Nasal Cannula 2.0 05/01/16 23:29 36.5 74 18 102/64 100 Nasal Cannula 2.5 05/01/16 20:15 76 14 92 Nasal Cannula 2.0 05/01/16 20:00 98 Nasal Cannula 2.0 05/01/16 19:27 36.6 76 18 99/58 98 Nasal Cannula 2.0 05/01/16 18:41 73 18 97/58 100 05/01/16 16:56 75 20 102/53 100 Nasal Cannula 2.0 05/01/16 16:53 74 05/01/16 15:36 71 16 107/55 99 Nasal Cannula 2.0 05/01/16 14:27 67 20 96/53 100 Mask Nebulizer 05/01/16 13:05 93 Nasal Cannula 2.0 05/01/16 12:50 89 Room Air 05/01/16 12:43 91 Room Air 05/01/16 12:43 90 Room Air 05/01/16 12:43 37.2 71 18 95/45 90 Room Air 05/01/16 12:41 71 Physical Exam General Appearance: WD/WN, + moderate distress Neck: supple, no JVD Respiratory/Chest: + decreased breath sounds, + accessory muscle use, + rales, + rhonchi Cardiovascular: regular rate, rhythm, + systolic murmur Abdomen: normal bowel sounds, non tender, soft Extremities: no pedal edema, no calf tenderness Neurologic/Psychiatric: alert, + disoriented Laboratory Results Last 24 Hours Test 05/01/16 13:20 05/01/16 13:23 05/01/16 13:44 05/01/16 14:20 White Blood Count 5.47 K/uL Red Blood Count 3.94 M/uL Hemoglobin 10.3 g/dL Hematocrit 33.4 % Mean Corpuscular Volume 84.8 fL Mean Corpuscular Hemoglobin 26.1 pg Mean Corpuscular Hemoglobin Concent 30.8 g/dl Platelet Count 250 K/uL Mean Platelet Volume 9.7 fL Neutrophils (%) (Auto) 45.4 % Lymphocytes (%) (Auto) 37.8 % Monocytes (%) (Auto) 15.7 % Eosinophils (%) (Auto) 0.5 % Basophils (%) (Auto) 0.4 % Neutrophils # (Auto) 2.48 K/uL Lymphocytes # (Auto) 2.07 K/uL Monocytes # (Auto) 0.86 K/uL Eosinophils # (Auto) 0.03 K/uL Basophils # (Auto) 0.02 K/uL RDW Standard Deviation 73.1 fL RDW Coefficient of Variation 23.3 % Immature Granulocyte % (Auto) 0.2 % Immature Granulocyte # (Auto) 0.01 K/uL Anisocytosis PRESENT Prothrombin Time 17.0 SECONDS Prothromb Time International Ratio 1.6 Activated Partial Thromboplast Time 36.3 SECONDS Partial Thromboplastin Ratio 1.4 Sodium Level 144 mmol/L Potassium Level 5.7 mmol/L Chloride Level 110 mmol/L Carbon Dioxide Level 27 mmol/L Anion Gap 7.0 mmol/L Blood Urea Nitrogen 67 mg/dl Creatinine 2.90 mg/dl Est Creatinine Clear Calc Drug Dose 17.7 ml/min Estimated GFR () 17.3 Estimated GFR (Non- 14.9 BUN/Creatinine Ratio 22.9 Random Glucose 105 mg/dl Calcium Level 8.8 mg/dl Magnesium Level 2.9 mg/dl Total Bilirubin 0.2 mg/dl Direct Bilirubin 0.1 mg/dl Aspartate Amino Transf (AST/SGOT) 132 U/L Alanine Aminotransferase (ALT/SGPT) 45 U/L Alkaline Phosphatase 54 U/L Total Protein 8.1 gm/dl Albumin 2.6 gm/dl Bedside Lactic Acid Venous 1.05 mmol/L Venous Blood pH 7.27 Venous Blood Partial Pressure CO2 64 mmHg Venous Blood Partial Pressure O2 27 mmHg Venous Blood HCO3 28 mmol/L Venous Blood Oxygen Saturation < 60.0 % Venous Blood Base Excess 0.1 mmol/L Urine Color DK YELLOW Urine Appearance CLOUDY Urine pH 5.0 Urine Specific [place] 1.014 Urine Protein TRACE Urine Glucose (UA) NEG Urine Ketones NEG Urine Occult Blood 1+ Urine Nitrite NEG Urine Bilirubin NEG Urine Urobilinogen NEG Urine Leukocyte Esterase NEG Urine WBC (Auto) 5-10 /hpf Urine RBC (Auto) 0-4 /hpf Urine Hyaline Casts (Auto) 5-10 /lpf Urine Epithelial Cells (Auto) >30 /lpf Urine Bacteria (Auto) NEG Urine Renal Epithelial Cells 0-5 /lpf Urine Pathogenic Casts 1-5 GRANULAR CASTS /lpf Urine Yeast (Auto) Urine Opiates Screen NEG Urine Methadone, Qualitative NEG Urine Barbiturates NEG Urine Phencyclidine (PCP) Level NEG Ur Amphetamine/Methamphetamine NEG MDMA (Ecstasy) Screen NEG Urine Benzodiazepines Screen POS Urine Cocaine Metabolite NEG Urine Marijuana (THC) NEG Test 05/01/16 21:07 05/02/16 06:10 Sodium Level 147 mmol/L Potassium Level 4.6 mmol/L Chloride Level 111 mmol/L Carbon Dioxide Level 24 mmol/L Anion Gap 12.0 mmol/L Blood Urea Nitrogen 67 mg/dl Creatinine 2.60 mg/dl Est Creatinine Clear Calc Drug Dose 19.6 ml/min Estimated GFR () 19.7 Estimated GFR (Non- 17.0 BUN/Creatinine Ratio 25.6 Random Glucose 101 mg/dl Calcium Level 8.6 mg/dl Assessment and Plan 80 y/o F with acute hypoxic respiratory failure with sepsis, with PMHx of a.fib , CKD stage III, acute hypoxic respiratory failure secondary pneumonia, looks like an atypical pneumonia - IV Levaquin + Zosyn. Given dose of IV Vancomycin in ED - DuoNebs QID and PRN - Pending blood cultures - abnormal U/A with urine culture CKD stage III with LUIS, likely secondary to dehydration: - Hold Lasix, IVF will stop with concerns for HF CAD/A.fib:rate controlled Amiodarone 100 mg PO QAM Metoprolol 50 mg PO QAM and 25 mg PO HS Imdur 30 mg PO daily Warfarin 3 mg PO QPM- INR subtherapeutic on admission Hypokalemia:- Hold Potassium supplement. K level of 5.7 on admission TIA:- Continue ASA 81 mg Lipitor 10mg Hypothyroidism: Synthroid 137 mcg PO daily GERD: Zantac and Protonix Neuropathy: Gabapentin 300 mg PO BID Herpes simplex:suppression Valtrex 0.001 mg PO QAM DVT prophylaxis:- Coumadin Code Status:- LEVEL V, DNR
[2016-05-02] MEDS ORDERED: PERFLUTREN LIPID MICROSPHERE (DEFINITY) IV ONE (11:12)
[2016-05-02] MEDS: PIPERACILL/TAZOBAC IV 4.5 GM in DEXTROSE 5% 100ML 100 ML IV SCH (11:15)
[2016-05-02] MEDS: WARFARIN SOD 3 MG TAB PO SCH (15:27)
--- NOTE | 2016-05-02 18:05 | ECHOCARDIOGRAM REPORT ---
*NOTICE TO RECEIVING DEMOCRAT AGENCY This information is strictly Confidential and protected under [place] law. [place] law prohibits you from making any further disclosure of this information unless further disclosure is expressly permitted by the written consent of the person to whom it pertains or is authorized by law. A general authorization for the release of medical or other information is not sufficient for this purpose. Hospital accepts no responsibility if the information is made available to any other person, INCLUDING THE PATIENT. Interpretation Summary * Name: BONITA BLOCK Study Date: 05/02/2016 11:34 AM BP: 90/54 mmHg * Patient Location: C.2T\S\E217\S\1 HR: 73 * : 1935 (M/d/yyyy) Gender: Female Height: 60 in * Age: 80 yrs Ethnicity: [place] Weight: 225 lb * Ordering Physician: Adolfo Ross * Referring Physician: Self, Referred * Performed By: Edwina Mitchell RDCS * * Reason For Study: CHF * BSA: 2.0 m2 * Normal left ventricular systolic function. * Mild concentric left ventricular hypertrophy. * Moderate left atrial dilatation. * Mild mitral regurgitation. * Mild right ventricular systolic dysfunction. * The study was technically difficult. Procedure Details * A complete two-dimensional transthoracic echocardiogram was performed (2D, M-mode, Doppler and color flow Doppler). * The study was technically difficult. * The study was technically difficult, but visualization was adequate with the administration of Definity ultrasound contrast. * There were technical limitations due to patient'sbody habitus * A contrast injection of Definity was performed to improve assessment of LV function. * Contrast was injected into an intravenous site in the right arm. * One vial of Definity ultrasound contrast was diluted in normal saline to a total volume of 10 ml. A total of '2' ml of solution was administered during imaging. * Lot # [id number] of Definity utilized for procedure. * Expiration date 1dec. * The attending nurse who injected the contrast agent was Lety Ruiz RN. Left Ventricle * The left ventricle is normal in size. * There is mild concentric left ventricular hypertrophy. * Ejection Fraction = 65-70%. * Left ventricular systolic function is normal. * The left ventricular wall motion is normal. Right Ventricle * The right ventricle is not well visualized. * The right ventricular systolic function is mildly reduced. * The right ventricular systolic function is reduced as assessed by tricuspid annular plane systolic excursion (TAPSE) (TAPSE <1.6 cm). Atria * The left atrium is moderately dilated. * Right atrium not well visualized. Mitral Valve * The mitral valve is not well visualized. * There is mild mitral regurgitation. Tricuspid Valve * The tricuspid valve is not well visualized. * Significant tricuspid regurgitation is absent. Aortic Valve * The aortic valve is not well visualized. * Normal velocity across the aortic valve. * There is no significant aortic regurgitation. Pulmonic Valve * The pulmonic valve is not well visualized. * There is no significant pulmonary regurgitation. Great Vessels * The aortic root is normal size. * Normal inferior vena cava diameter and respiratory variation suggests normal central venous pressure. MMode 2D Measurements and Calculations IVSd 1.4 cm IVSs 1.7 cm LVIDd 4.9 cm LVIDs 3.6 cm LVPWd 1.6 cm LVPWs 1.8 cm IVS/LVPW 0.92 FS 25.8 % EDV(Teich) 111.0 ml ESV(Teich) 54.8 ml EF(Teich) 50.6 % EDV(cubed) 115.2 ml ESV(cubed) 47.1 ml EF(cubed) 59.1 % % IVS thick 16.5 % % LVPW thick 15.1 % LV mass(C)d 312.3 grams LV mass(C)dI 159.1 grams/m\S\2 LV mass(C)s 259.5 grams LV mass(C)sI 132.2 grams/m\S\2 SV(Teich) 56.2 ml SI(Teich) 28.6 ml/m\S\2 SV(cubed) 68.1 ml SI(cubed) 34.7 ml/m\S\2 Ao root diam 3.0 cm Ao root area 7.2 cm\S\2 ACS 1.6 cm LA dimension 4.8 cm LA/Ao 1.6 LVAd ap4 21.2 cm\S\2 LVLd ap4 6.4 cm EDV(MOD-sp4) 62.2 ml EDV(sp4-el) 60.0 ml LVAs ap4 11.4 cm\S\2 LVLs ap4 5.4 cm ESV(MOD-sp4) 23.6 ml ESV(sp4-el) 20.6 ml EF(MOD-sp4) 62.0 % EF(sp4-el) 65.7 % LVAd ap2 15.1 cm\S\2 LVLd ap2 6.4 cm EDV(MOD-sp2) 31.9 ml EDV(sp2-el) 30.1 ml LVAs ap2 6.6 cm\S\2 LVLs ap2 4.3 cm ESV(MOD-sp2) 10.0 ml ESV(sp2-el) 8.5 ml EF(MOD-sp2) 68.7 % EF(sp2-el) 71.6 % LVLd %diff 1.0 % EDV(MOD-bp) 44.9 ml LVLs %diff -23.92 % ESV(MOD-bp) 17.1 ml EF(MOD-bp) 62.0 % SV(MOD-sp4) 38.5 ml SI(MOD-sp4) 19.6 ml/m\S\2 SV(MOD-sp2) 21.9 ml SI(MOD-sp2) 11.2 ml/m\S\2 SV(MOD-bp) 27.8 ml SI(MOD-bp) 14.2 ml/m\S\2 SV(sp4-el) 39.4 ml SI(sp4-el) 20.1 ml/m\S\2 SV(sp2-el) 21.6 ml SI(sp2-el) 11.0 ml/m\S\2 Doppler Measurements and Calculations MV E max nahed 103.2 cm/sec MV A max nahed 55.3 cm/sec MV E/A 1.9 MV dec time 0.25 sec Ao V2 max 143.5 cm/sec Ao max PG 8.2 mmHg Ao max PG (full) 4.9 mmHg LV V1 max PG 3.4 mmHg LV V1 max 92.0 cm/sec PA V2 max 84.7 cm/sec PA max PG 2.9 mmHg
[2016-05-02] MEDS: RANITIDINE HCL 150 MG TAB PO SCH (19:35)
[2016-05-03] VITALS (12 sets, daily range): BP systolic 88–117; BP diastolic 50–72; PULSE 72–86; TEMP 36.6–37; O2SAT 91–98
[2016-05-03] MEDS: PIPERACILL/TAZOBAC IV 4.5 GM in DEXTROSE 5% 100ML 100 ML IV SCH (00:36)
[2016-05-03] MEDS: LEVOTHYROXINE 137 MCG TAB PO SCH (06:10)
[2016-05-03 06:41] LABS: HEMATOCRIT 32.6 % (37-47); MEAN CELL VOLUME 85.1 fL (80-100); MEAN CORPUSCULAR HEMOGLOBIN 25.6 pg (25-34); MEAN CORPUSCULAR HGB CONC 30.1 g/dl (32-36); MEAN PLATELET VOLUME 9.4 fL (7.4-10.4); PLATELET COUNT 204 K/uL (130-400); RED BLOOD COUNT 3.83 M/uL (4.2-5.4); WHITE BLOOD COUNT 4.95 K/uL (4.8-10.8)
[2016-05-03] MEDS: ALBUT/IPRATROP 3MG/0.5MG NEB 3 ML VIAL INH SCH ×3 (07:00→15:52)
[2016-05-03 07:35] LABS: BUN/CREATININE RATIO 27.1 (10-20); CALCIUM 8.8 mg/dl (8.5-10.1); CREATININE 1.6 mg/dl (0.60-1.20); POTASSIUM 3.8 mmol/L (3.5-5.1)
[2016-05-03] MEDS: ASPIRIN 81 MG CHEW PO SCH (08:10)
[2016-05-03] MEDS: GABAPENTIN 300 MG CAP PO SCH (08:10)
[2016-05-03] MEDS: CALCIUM 600MG + VIT D 400 IU TAB PO SCH (08:10)
[2016-05-03] MEDS: AMIODARONE 200 MG TAB PO SCH (08:11)
[2016-05-03] MEDS: METOPROLOL TARTRATE 50 MG TAB PO SCH ×2 (08:11→22:19)
[2016-05-03] MEDS: ATORVASTATIN 10 MG TAB PO SCH (08:11)
[2016-05-03] MEDS: PANTOprazole SOD 40 MG TAB PO SCH (08:12)
[2016-05-03] MEDS: ISOSORBIDE MONONITRATE 30 MG TABCR PO SCH (08:15)
[2016-05-03] MEDS: ALPRAZOLAM 0.5 MG TAB PO SCH ×2 (08:17→12:22)
[2016-05-03] MEDS ORDERED: LEVOFLOXACIN 750 MG TAB PO SCH (11:00)
--- NOTE | 2016-05-03 11:31 | Progress Note ---
Subjective Date of Service: May 03, 2016. Subjective this pt looks improved, states she feels she if breathing better, looking forward to getting out of chair Problem List Medical Problems: (1) PNA (pneumonia) Status: Acute (2) Sepsis Status: Acute Review of Systems Constitutional: + fatigue, + weakness, No chills, No fever Respiratory: + cough, + dyspnea on exertion, + shortness of breath, + sputum Cardiac: No chest pain, No edema Abdomen: No diarrhea, No nausea, No pain, No vomiting Female : + abnormal vaginal bleeding Neurologic: + memory loss Objective Vital Signs Date Time Temp Pulse Resp B/P Pulse Ox O2 Delivery O2 Flow Rate FiO2 05/03/16 10:59 36.6 76 20 97 2.0 05/03/16 08:00 Nasal Cannula 2.0 05/03/16 07:22 36.6 76 20 112/69 97 05/03/16 07:00 79 18 91 Nasal Cannula 2.0 05/03/16 04:10 Nasal Cannula 2.0 05/03/16 04:08 36.6 72 18 108/64 98 Room Air 05/03/16 00:00 Nasal Cannula 2.0 05/02/16 23:42 36.6 76 20 106/67 98 Nasal Cannula 2.0 05/02/16 20:00 Nasal Cannula 2.0 05/02/16 19:13 36.9 79 16 104/62 95 Nasal Cannula 3.0 05/02/16 18:54 77 18 98 Nasal Cannula 3.0 05/02/16 16:38 36.5 76 16 104/61 98 Nasal Cannula 3.0 92/56 05/02/16 16:01 79 14 93 Nasal Cannula 2.0 05/02/16 15:56 Nasal Cannula 3.0 05/02/16 12:00 Nasal Cannula 3.0 Physical Exam General Appearance: WD/WN, + mild distress, + obese Neck: supple, no JVD Respiratory/Chest: + decreased breath sounds, + accessory muscle use, + rhonchi Cardiovascular: regular rate, rhythm, + systolic murmur Abdomen: normal bowel sounds, non tender, soft Extremities: no pedal edema, no calf tenderness Neurologic/Psychiatric: alert Laboratory Results Last 24 Hours Test 05/03/16 06:05 White Blood Count 4.95 K/uL Red Blood Count 3.83 M/uL Hemoglobin 9.8 g/dL Hematocrit 32.6 % Mean Corpuscular Volume 85.1 fL Mean Corpuscular Hemoglobin 25.6 pg Mean Corpuscular Hemoglobin Concent 30.1 g/dl RDW Standard Deviation 74.2 fL RDW Coefficient of Variation 23.8 % Platelet Count 204 K/uL Mean Platelet Volume 9.4 fL Sodium Level 146 mmol/L Potassium Level 3.8 mmol/L Chloride Level 113 mmol/L Carbon Dioxide Level 23 mmol/L Anion Gap 10.0 mmol/L Blood Urea Nitrogen 43 mg/dl Creatinine 1.60 mg/dl Est Creatinine Clear Calc Drug Dose 31.2 ml/min Estimated GFR () 35.4 Estimated GFR (Non- 30.5 BUN/Creatinine Ratio 27.1 Random Glucose 110 mg/dl Calcium Level 8.8 mg/dl Assessment and Plan 80 y/o F with acute hypoxic respiratory failure with sepsis, with PMHx of ru , CKD stage III, acute hypoxic respiratory failure secondary pneumonia, looks like an atypical pneumonia, clinically improving - IV Levaquin + Zosyn. Given dose of IV Vancomycin in ED - DuoNebs QID and PRN - CKD stage III with LUIS, likely secondary to dehydration: - Improved with holding Lasix,Echo shows preserved EF, concentric LVH not commented but maybe Diastolic Dysfunction could be responsible for some mild HF , No PAF seen to suggest from rapid rate CAD/A.fib:rate controlled Amiodarone 100 mg PO QAM Metoprolol 50 mg PO QAM and 25 mg PO HS Imdur 30 mg PO daily Warfarin 3 mg PO QPM- INR subtherapeutic on admission recheck 05/04 DVT prophylaxis:- Coumadin Code Status:- LEVEL V, DNR
[2016-05-03] MEDS ORDERED: PIPERACILL/TAZOBAC IV 4.5 GM in DEXTROSE 5% 100ML 100 ML IV SCH (12:00)
[2016-05-03] MEDS ORDERED: NURSING VERBAL MED ORDER ONE ×2 (12:30→20:30)
[2016-05-03] MEDS ORDERED: FLUMAZENIL 0.1 MG/1 ML 10 ML VIAL IV STA (12:56)
[2016-05-03] MEDS: SODIUM CHLORIDE 0.9% 500ML 500 ML IV SCH ×3 (13:01→13:31)
[2016-05-03] MEDS ORDERED: [UNRECOGNIZED DRUG - MIXTURE] IV SCH (13:30)
[2016-05-03] MEDS ORDERED: SODIUM CHLORIDE 0.9% 1000ML 1,000 ML IV SCH (14:00)
--- NOTE | 2016-05-03 15:52 | Progress Note ---
Subjective Date of Service: May 03, 2016. Subjective PM note, pt is more lethargic since move from tele this am, did have minimal response to romazicon given her meds of xanax, will stop these and Neurontin, give additional Romazicon and keep on tele in case cannot have po metoprolol can give iv Problem List Medical Problems: (1) PNA (pneumonia) Status: Acute (2) Sepsis Status: Acute Review of Systems Constitutional: + fatigue, + problem reported (lehtargy does grimmace and groan to sternal rub, otherwise sleeping), + weakness Objective Vital Signs Date Time Temp Pulse Resp B/P Pulse Ox O2 Delivery O2 Flow Rate FiO2 05/03/16 15:02 36.6 78 16 94/54 96 Nasal Cannula 2.0 05/03/16 13:00 76 88/50 95 Nasal Cannula 4.0 05/03/16 11:01 81 18 94 Nasal Cannula 2.0 05/03/16 10:59 36.6 76 20 97 2.0 05/03/16 10:55 36.9 86 19 104/63 95 05/03/16 08:00 Nasal Cannula 2.0 05/03/16 07:22 36.6 76 20 112/69 97 05/03/16 07:00 79 18 91 Nasal Cannula 2.0 05/03/16 04:10 Nasal Cannula 2.0 05/03/16 04:08 36.6 72 18 108/64 98 Room Air 05/03/16 00:00 Nasal Cannula 2.0 05/02/16 23:42 36.6 76 20 106/67 98 Nasal Cannula 2.0 05/02/16 20:00 Nasal Cannula 2.0 05/02/16 19:13 36.9 79 16 104/62 95 Nasal Cannula 3.0 05/02/16 18:54 77 18 98 Nasal Cannula 3.0 05/02/16 16:38 36.5 76 16 104/61 98 Nasal Cannula 3.0 92/56 05/02/16 16:01 79 14 93 Nasal Cannula 2.0 05/02/16 15:56 Nasal Cannula 3.0 Physical Exam General Appearance: + moderate distress, + obese Respiratory/Chest: + decreased breath sounds, + rhonchi Cardiovascular: regular rate, rhythm, + systolic murmur Abdomen: normal bowel sounds, non tender, soft Extremities: no pedal edema, no calf tenderness Neurologic/Psychiatric: + pertinent finding (obtunded but arousable) Laboratory Results Last 24 Hours Test 05/03/16 06:05 05/03/16 12:36 White Blood Count 4.95 K/uL Red Blood Count 3.83 M/uL Hemoglobin 9.8 g/dL Hematocrit 32.6 % Mean Corpuscular Volume 85.1 fL Mean Corpuscular Hemoglobin 25.6 pg Mean Corpuscular Hemoglobin Concent 30.1 g/dl RDW Standard Deviation 74.2 fL RDW Coefficient of Variation 23.8 % Platelet Count 204 K/uL Mean Platelet Volume 9.4 fL Sodium Level 146 mmol/L Potassium Level 3.8 mmol/L Chloride Level 113 mmol/L Carbon Dioxide Level 23 mmol/L Anion Gap 10.0 mmol/L Blood Urea Nitrogen 43 mg/dl Creatinine 1.60 mg/dl Est Creatinine Clear Calc Drug Dose 31.2 ml/min Estimated GFR () 35.4 Estimated GFR (Non- 30.5 BUN/Creatinine Ratio 27.1 Random Glucose 110 mg/dl Calcium Level 8.8 mg/dl Bedside Glucose 160 mg/dl Assessment and Plan 80 y/o F with acute hypoxic respiratory failure with sepsis, with PMHx of ru , CKD stage III, afternoon of 05/03, was called as pt not alert, sleeping with lower blood pressure but with preserved airway protection and oxymetry, tried romazicon with equivocal results, will try again, check stat coags as on coumadin and non contrast head ct. This still may all be xanax, continue ivf support and have prn metoprolol if needed. acute hypoxic respiratory failure secondary pneumonia, looks like an atypical pneumonia, antibiotics streamlined to levaquin - DuoNebs QID and PRN - CKD stage III with LUIS, likely secondary to dehydration:ivf - Improved with holding Lasix,Echo shows preserved EF, concentric LVH not commented but maybe Diastolic Dysfunction could be responsible for some mild HF , No PAF seen to suggest from rapid rate CAD/A.fib:rate controlled Amiodarone 100 mg PO QAM Metoprolol 50 mg PO QAM and 25 mg PO HS Imdur 30 mg PO daily Warfarin 3 mg PO QPM- DVT prophylaxis:- Coumadin Code Status:- LEVEL V, DNR
[2016-05-03] MEDS ORDERED: LEVOFLOXACIN / D5W 500 MG in PREMIXED IN D5W 100 ML IV SCH (16:00)
[2016-05-03] MEDS ORDERED: METOPROLOL TARTRATE 1 MG/ML VIAL IV PRN (16:00)
[2016-05-03] MEDS ORDERED: [UNRECOGNIZED DRUG - MIXTURE] IV SCH (16:15)
[2016-05-03] MEDS ORDERED: FLUMAZENIL 0.1 MG/1 ML 10 ML VIAL IV ONE (16:15)
[2016-05-03 16:26] LABS: INR 2.4 (0.9-1.1)
[2016-05-03] MEDS ORDERED: ALPRAZOLAM 0.5 MG TAB PO PRN (16:30)
[2016-05-03 16:33] LABS: PROTHROMBIN TIME (PATIENT) 26.8 SECONDS (9.0-12.0)
[2016-05-03 16:46] LABS: BUN/CREATININE RATIO 25.9 (10-20); CALCIUM 8.5 mg/dl (8.5-10.1); CREATININE 1.4 mg/dl (0.60-1.20); POTASSIUM 4.1 mmol/L (3.5-5.1)
[2016-05-03] MEDS: WARFARIN SOD 3 MG TAB PO SCH (17:29)
[2016-05-03] MEDS ORDERED: FUROSEMIDE INJ 20 MG in SYRINGE 0 ML IV ONE (20:45)
[2016-05-03] MEDS: RANITIDINE HCL 150 MG TAB PO SCH (21:05)
--- NOTE | 2016-05-03 21:31 | DIAGNOSTIC IMAGING REPORT ---
CHEST ONE VIEW PORTABLE CLINICAL HISTORY: Pneumonia. COMPARISON STUDY: Chest CT May 01, 2016 and chest radiograph May 02, 2016. FINDINGS: There are median sternotomy wires and clips from bypass grafting. Cardiomegaly is unchanged. Mediastinal widening is unchanged. Mild interstitial thickening persists. There is mild right infrahilar opacity. IMPRESSION: 1. Mild right infrahilar opacity. Atelectasis is favored although consolidation could appear similar. 2. Pulmonary vascular congestion with possible mild pulmonary edema. Electronically signed by: Marcel Angel M.D. 05/03/2016 9:30 PM Dictated Date/Time: 05/03/2016 9:21 PM
[2016-05-04] VITALS (11 sets, daily range): BP systolic 124–175; BP diastolic 63–83; PULSE 76–103; TEMP 36.3–37; O2SAT 89–94
[2016-05-04] MEDS: LEVOTHYROXINE 137 MCG TAB PO SCH (05:58)
[2016-05-04] MEDS: ALBUT/IPRATROP 3MG/0.5MG NEB 3 ML VIAL INH SCH ×6 (07:54→20:00)
[2016-05-04] MEDS: AMIODARONE 200 MG TAB PO SCH (08:07)
[2016-05-04] MEDS: CALCIUM 600MG + VIT D 400 IU TAB PO SCH (08:08)
[2016-05-04] MEDS: PANTOprazole SOD 40 MG TAB PO SCH (08:08)
[2016-05-04] MEDS: ASPIRIN 81 MG CHEW PO SCH (08:08)
[2016-05-04] MEDS: ATORVASTATIN 10 MG TAB PO SCH (08:09)
[2016-05-04 08:15] LABS: HEMATOCRIT 34.2 % (37-47); MEAN CELL VOLUME 84.7 fL (80-100); MEAN CORPUSCULAR HEMOGLOBIN 25.5 pg (25-34); MEAN CORPUSCULAR HGB CONC 30.1 g/dl (32-36); MEAN PLATELET VOLUME 9.6 fL (7.4-10.4); PLATELET COUNT 240 K/uL (130-400); RED BLOOD COUNT 4.04 M/uL (4.2-5.4); WHITE BLOOD COUNT 6.92 K/uL (4.8-10.8)
[2016-05-04 08:20] LABS: INR 3.1 (0.9-1.1); PROTHROMBIN TIME (PATIENT) 34.8 SECONDS (9.0-12.0)
[2016-05-04] MEDS: METOPROLOL TARTRATE 50 MG TAB PO SCH ×2 (08:26→20:35)
[2016-05-04] MEDS: ISOSORBIDE MONONITRATE 30 MG TABCR PO SCH (08:26)
[2016-05-04] MEDS ORDERED: NITROGLYCERIN OINT 2% 1GM PACKET EXT ONE (08:45)
[2016-05-04] MEDS ORDERED: FUROSEMIDE INJ 80 MG in SYRINGE 0 ML IV ONE (08:45)
[2016-05-04 08:47] LABS: BUN/CREATININE RATIO 21.8 (10-20); CALCIUM 8.9 mg/dl (8.5-10.1); CREATININE 1.2 mg/dl (0.60-1.20); POTASSIUM 3.5 mmol/L (3.5-5.1)
[2016-05-04] MEDS ORDERED: ALBUT/IPRATROP 3MG/0.5MG NEB 3 ML VIAL INH PRN (13:15)
--- NOTE | 2016-05-04 13:15 | Progress Note ---
Subjective Date of Service: May 04, 2016. Subjective pt has had a struggle over the last 24 hours with excess sedation from xanax to fluid overload, seems to be stabilizing, this am could speak and had no complaints but was viably short of breath Problem List Medical Problems: (1) PNA (pneumonia) Status: Acute (2) Sepsis Status: Acute Review of Systems Constitutional: + fatigue, + weakness, No fever Respiratory: + cough, + dyspnea at rest, + shortness of breath Cardiac: + edema, No chest pain Abdomen: No diarrhea, No nausea, No pain, No vomiting Psychiatric: + anhedonism, + depression symptoms Objective Vital Signs Date Time Temp Pulse Resp B/P Pulse Ox O2 Delivery O2 Flow Rate FiO2 05/04/16 07:39 36.3 103 20 175/75 92 3.0 05/04/16 04:00 Nasal Cannula 2.0 05/04/16 03:53 36.5 91 16 148/83 92 05/04/16 00:00 Nasal Cannula 2.0 05/03/16 23:55 37.0 75 18 110/67 97 2.0 05/03/16 20:55 77 18 96 Nasal Cannula 2.0 05/03/16 20:00 Nasal Cannula 2.0 05/03/16 19:39 36.8 77 20 117/72 95 2.0 05/03/16 16:00 Nasal Cannula 2.0 05/03/16 15:52 77 16 96 Nasal Cannula 2.0 05/03/16 15:02 36.6 78 16 94/54 96 Nasal Cannula 2.0 05/03/16 13:00 76 88/50 95 Nasal Cannula 4.0 05/03/16 11:01 81 18 94 Nasal Cannula 2.0 05/03/16 10:59 36.6 76 20 97 2.0 05/03/16 10:55 36.9 86 19 104/63 95 05/03/16 08:00 Nasal Cannula 2.0 Physical Exam General Appearance: + moderate distress, + obese Neck: supple, + JVD Respiratory/Chest: + decreased breath sounds, + accessory muscle use, + rales Cardiovascular: regular rate, rhythm, + systolic murmur Abdomen: normal bowel sounds, non tender, soft Extremities: + pedal edema, + swelling Laboratory Results Last 24 Hours Test 05/03/16 12:36 05/03/16 16:06 05/04/16 04:44 Bedside Glucose 160 mg/dl Prothrombin Time 26.8 SECONDS Prothromb Time International Ratio 2.4 Sodium Level 149 mmol/L Potassium Level 4.1 mmol/L Chloride Level 116 mmol/L Carbon Dioxide Level 25 mmol/L Anion Gap 8.0 mmol/L Blood Urea Nitrogen 36 mg/dl Creatinine 1.40 mg/dl Est Creatinine Clear Calc Drug Dose 35.6 ml/min Estimated GFR () 41.6 Estimated GFR (Non- 35.9 BUN/Creatinine Ratio 25.9 Random Glucose 132 mg/dl Calcium Level 8.5 mg/dl Assessment and Plan 80 y/o F with acute hypoxic respiratory failure with sepsis, with PMHx of a.fib , CKD stage III, Events of 05/03 from too much xanax now resolved, pt was given nss as bp was low during this event and has developed volume overload heart failure, likley acute diastolic heart failure, additional lasix and potassim given acute hypoxic respiratory failure secondary pneumonia, looks like an atypical pneumonia, antibiotics streamlined to levaquin - DuoNebs QID and PRN - CKD stage III with LUIS, likely secondary to dehydration:ivf - Improved with holding Lasix,Echo shows preserved EF, concentric LVH not commented but maybe Diastolic Dysfunction could be responsible for some mild HF , No PAF seen to suggest from rapid rate CAD/A.fib:rate controlled Amiodarone 100 mg PO QAM Metoprolol 50 mg PO QAM and 25 mg PO HS Imdur 30 mg PO daily Warfarin 3 mg PO QPM- DVT prophylaxis:- Coumadin will be held 05/04 and dose reduced 05/05 Code Status:- LEVEL V, DNR
[2016-05-04] MEDS: POTASSIUM CHLR 10 MEQ / WTR 10 MEQ in PREMIXED WATER 100 ML IV SCH ×3 (13:47→15:38)
[2016-05-04 14:16] LABS: HYDROXYETHYLFLURAZEPAM CONF NEGATIVE NG/ML (CUTOFF=50); HYDROXYMIDAZOLAM NEGATIVE NG/ML (CUTOFF=50); HYDROXYTRIAZOLAM CONF NEGATIVE NG/ML (CUTOFF=50); TEMAZEPAM CONF NEGATIVE NG/ML (CUTOFF=50)
[2016-05-04] MEDS: LEVOFLOXACIN 750 MG TAB PO SCH (15:38)
[2016-05-04] MEDS: RANITIDINE HCL 150 MG TAB PO SCH (20:34)
[2016-05-05] VITALS (13 sets, daily range): BP systolic 115–166; BP diastolic 66–94; PULSE 84–95; TEMP 36.5–37; O2SAT 90–96
[2016-05-05] MEDS: LEVOTHYROXINE 137 MCG TAB PO SCH (06:16)
[2016-05-05] MEDS: ALBUT/IPRATROP 3MG/0.5MG NEB 3 ML VIAL INH SCH ×6 (07:01→20:00)
[2016-05-05 07:39] LABS: INR 3.4 (0.9-1.1)
[2016-05-05] MEDS: AMIODARONE 200 MG TAB PO SCH (08:37)
[2016-05-05] MEDS: ISOSORBIDE MONONITRATE 60 MG TABCR PO SCH (08:37)
[2016-05-05] MEDS: METOPROLOL TARTRATE 50 MG TAB PO SCH ×2 (08:38→21:42)
[2016-05-05] MEDS: PANTOprazole SOD 40 MG TAB PO SCH (08:38)
[2016-05-05] MEDS: ATORVASTATIN 10 MG TAB PO SCH (08:39)
[2016-05-05] MEDS: CALCIUM 600MG + VIT D 400 IU TAB PO SCH (08:40)
[2016-05-05] MEDS ORDERED: FUROSEMIDE INJ 40 MG in SYRINGE 0 ML IV ONE (08:45)
[2016-05-05] MEDS: ASPIRIN 81 MG CHEW PO SCH (08:45)
[2016-05-05] MEDS ORDERED: ALPRAZOLAM 0.25 MG TAB PO PRN (12:15)
--- NOTE | 2016-05-05 12:33 | Progress Note ---
Subjective Date of Service: May 05, 2016. Subjective pt is tremulous and short of breath. she seems to be still in volume overload. Problem List Medical Problems: (1) PNA (pneumonia) Status: Acute (2) Sepsis Status: Acute Review of Systems Constitutional: No chills, No fever Respiratory: + dyspnea on exertion, + shortness of breath, No cough Cardiac: + edema, No PND, No chest pain Abdomen: No diarrhea, No nausea, No pain, No vomiting Female : No dysuria, No urinary frequency Objective Vital Signs Date Time Temp Pulse Resp B/P Pulse Ox O2 Delivery O2 Flow Rate FiO2 05/05/16 07:31 36.9 93 18 166/94 94 4.5 05/05/16 07:01 91 18 95 Nasal Cannula 4.0 05/05/16 04:53 Nasal Cannula 4.0 05/05/16 03:38 36.5 90 20 144/77 94 Nasal Cannula 4.0 05/04/16 23:56 Nasal Cannula 4.0 05/04/16 23:39 36.8 76 18 132/64 93 Room Air 05/04/16 20:33 89 18 93 Nasal Cannula 4.0 05/04/16 19:24 37.0 97 18 132/63 90 Room Air 05/04/16 16:15 88 18 94 Nasal Cannula 5.0 05/04/16 16:01 36.6 90 16 137/65 94 Nasal Cannula 6.0 05/04/16 16:00 Nasal Cannula 4.0 05/04/16 12:19 86 18 94 Nasal Cannula 5.0 05/04/16 12:03 36.7 88 18 124/72 94 5.0 05/04/16 12:00 Nasal Cannula 4.0 05/04/16 08:58 88 133/65 89 Nasal Cannula 4.0 05/04/16 08:00 Nasal Cannula 4.0 05/04/16 07:54 100 18 90 Nasal Cannula 4.0 Physical Exam General Appearance: WD/WN, + moderate distress Neck: supple, no JVD Respiratory/Chest: + respiratory distress, + decreased breath sounds, + accessory muscle use Cardiovascular: regular rate, rhythm, + systolic murmur Abdomen: normal bowel sounds, non tender, soft Extremities: no pedal edema, no calf tenderness Neurologic/Psychiatric: alert, + disoriented Laboratory Results Last 24 Hours Test 05/04/16 11:49 05/05/16 07:05 Bedside Glucose 145 mg/dl Prothrombin Time 38.0 SECONDS Prothromb Time International Ratio 3.4 Assessment and Plan 80 y/o F with acute hypoxic respiratory failure with sepsis, with PMHx of ru , CKD stage III, Events of 05/03 from too much xanax now resolved, pt was given nss as bp was low during this event and has developed volume overload heart failure, likley acute diastolic heart failure, remains with oxygen requirement 05/05, and elevated BP, will give additional iv lasix 05/05, re check CXR increase metoprolol and imdur to try to improve blood pressure acute hypoxic respiratory failure secondary pneumonia, looks like an atypical pneumonia, repeat cxr 05/05 due to oxygen requirements antibiotics streamlined to levaquin - DuoNebs QID and PRN - CKD stage III with LUIS, likely secondary to dehydration:,Echo shows preserved EF , concentric LVH not commented but maybe Diastolic Dysfunction responsible HF, No PAF seen to suggest from rapid rate CAD/A.fib:rate controlled Amiodarone 100 mg PO QAM Metoprolol 50 mg PO bid Imdur 60 mg PO daily Warfarin INR had risen, no dose given 05/04 and dose reduced to 2.5 from 3 on 05/05 DVT prophylaxis:- Coumadin will be held 05/04 and dose reduced 05/05 Code Status:- LEVEL V, DNR
--- NOTE | 2016-05-05 12:56 | DIAGNOSTIC IMAGING REPORT ---
CHEST ONE VIEW PORTABLE HISTORY: Short of breath. eval heart failure COMPARISON: Chest 05/03/2016. FINDINGS: No pneumothorax. Low lung volumes. The heart remains enlarged. Suspect trace bilateral pleural effusions, unchanged. Mild interstitial pulmonary edema has slightly improved. No new focal lung consolidations. Right infrahilar density favors subsegmental atelectasis from the low lung volumes. IMPRESSION: Slight improvement in the mild interstitial pulmonary edema. Cardiomegaly and trace bilateral pleural effusions persist. Electronically signed by: Hiro Alexandra M.D. 05/05/2016 12:55 PM Dictated Date/Time: 05/05/2016 12:54 PM
[2016-05-05] MEDS: WARFARIN SOD 2.5 MG TAB PO SCH (16:03)
[2016-05-05] MEDS: RANITIDINE HCL 150 MG TAB PO SCH (21:42)
[2016-05-06] VITALS (12 sets, daily range): BP systolic 77–152; BP diastolic 45–80; PULSE 93–120; TEMP 36.3–38; O2SAT 91–96
[2016-05-06 06:13] LABS: INR 3.3 (0.9-1.1); PROTHROMBIN TIME (PATIENT) 36.8 SECONDS (9.0-12.0)
[2016-05-06] MEDS: LEVOTHYROXINE 137 MCG TAB PO SCH (06:24)
[2016-05-06 06:34] LABS: CREATININE 0.95 mg/dl (0.60-1.20)
[2016-05-06] MEDS: ALBUT/IPRATROP 3MG/0.5MG NEB 3 ML VIAL INH SCH ×2 (07:32→11:26)
[2016-05-06] MEDS: CALCIUM 600MG + VIT D 400 IU TAB PO SCH (08:10)
[2016-05-06] MEDS: ATORVASTATIN 10 MG TAB PO SCH (08:11)
[2016-05-06] MEDS: PANTOprazole SOD 40 MG TAB PO SCH (08:11)
[2016-05-06] MEDS: ASPIRIN 81 MG CHEW PO SCH (08:15)
[2016-05-06] MEDS: METOPROLOL TARTRATE 50 MG TAB PO SCH ×2 (08:16→20:21)
[2016-05-06] MEDS: ISOSORBIDE MONONITRATE 60 MG TABCR PO SCH (08:16)
[2016-05-06] MEDS: AMIODARONE 200 MG TAB PO SCH ×2 (08:16→20:22)
[2016-05-06 09:48] LABS: BUN/CREATININE RATIO 13.5 (10-20); CALCIUM 8.8 mg/dl (8.5-10.1); CREATININE 0.99 mg/dl (0.60-1.20); MAGNESIUM 1.4 mg/dl (1.8-2.4); POTASSIUM 3.4 mmol/L (3.5-5.1)
[2016-05-06] MEDS: POTASSIUM CHLORIDE 20 MEQ TABCR PO SCH ×2 (11:33→20:20)
[2016-05-06] MEDS: MAGNESIUM SULFATE 1GM / D5W 1 GM in PREMIXED IN D5W 100 ML IV SCH ×2 (11:33→12:36)
[2016-05-06] MEDS: LEVOFLOXACIN 750 MG TAB PO SCH (11:33)
[2016-05-06] MEDS ORDERED: NURSING VERBAL MED ORDER ONE (12:00)
[2016-05-06] MEDS ORDERED: SODIUM CHLORIDE 0.9% 500ML 500 ML IV PRN (12:15)
[2016-05-06] MEDS ORDERED: SODIUM CHLORIDE 0.9% 500ML 500 ML IV ONE (12:15)
[2016-05-06 13:57] LABS: VEN BLOOD GAS BASE EXCESS 2.7 mmol/L
[2016-05-06] MEDS ORDERED: AMIODARONE 200 MG TAB PO ONE (14:37)
[2016-05-06] MEDS ORDERED: POTASSIUM CHLORIDE 20MEQ/15ML 473ML PO ONE (15:00)
[2016-05-06] MEDS: IPRATROPIUM BROMIDE NEB SOLN 0.02% 2.5 ML VIAL INH SCH ×2 (15:00→20:03)
[2016-05-06] MEDS ORDERED: LEVALBUTEROL/IPRATROPIUM NEB INH SCH (15:00)
[2016-05-06] MEDS: LEVALBUTEROL 1.25MG/0.5ML NEB INH SCH ×2 (15:00→20:03)
[2016-05-06] MEDS: WARFARIN SOD 2.5 MG TAB PO SCH (15:56)
[2016-05-06] MEDS: RANITIDINE HCL 150 MG TAB PO SCH (20:21)
--- NOTE | 2016-05-06 20:31 | Progress Note ---
Subjective Date of Service: May 06, 2016. Subjective Pt evaluation today including: conversation w/ patient, physical exam, chart review, lab review, review of studies, conversation w/ information resource consultant (cardiology) Pain: denies chest pain, denies abd pain PO Intake: normal per staff Voiding: davis catheter in place Tele - showing NSR interspersed with a. fib/flutter. This am she is in a. fib. During my visit the patient was awake and alert but unable to tell me where she was or why she was here. Thinks she is at home. Denied any sob during the visit. ROS otherwise could not be obtained 2nd to dementia. Problem List Medical Problems: (1) PNA (pneumonia) Status: Acute (2) Sepsis Status: Acute Objective Vital Signs Date Time Temp Pulse Resp B/P Pulse Ox O2 Delivery O2 Flow Rate FiO2 05/06/16 20:04 99 18 94 Nasal Cannula 2.0 05/06/16 19:02 36.6 93 20 118/60 94 Nasal Cannula 2.0 05/06/16 16:00 96 Nasal Cannula 2.0 05/06/16 15:02 36.3 98 16 119/78 96 2.0 05/06/16 12:36 98/61 05/06/16 12:20 Nasal Cannula 3.0 05/06/16 12:05 37.0 120 18 77/45 92 2.0 05/06/16 11:27 118 20 91 Nasal Cannula 2.0 05/06/16 08:14 36.5 107 18 152/72 92 2.0 05/06/16 08:00 Nasal Cannula 3.0 05/06/16 07:32 112 20 93 Nasal Cannula 3.0 05/06/16 04:27 36.7 96 18 127/77 92 Humidified Oxygen 3.0 05/06/16 04:00 Nasal Cannula 4.0 05/06/16 00:00 Nasal Cannula 4.0 05/05/16 23:42 36.5 84 18 136/74 92 Nasal Cannula 3.0 05/05/16 21:41 94 143/66 05/05/16 20:30 95 Nasal Cannula 4.0 Humidified Oxygen Physical Exam General Appearance: no apparent distress, + obese ENT: + pertinent finding (MM very dry) Neck: no JVD Respiratory/Chest: + decreased breath sounds (bases), + wheezing Cardiovascular: + tachycardia, + systolic murmur (6 LLSB), + irregularly irregular Abdomen: normal bowel sounds, non tender, soft, no organomegaly Extremities: no pedal edema Neurologic/Psychiatric: alert, + disoriented Skin: no rash Laboratory Results Last 24 Hours Test 05/06/16 05:10 05/06/16 13:45 Prothrombin Time 36.8 SECONDS Prothromb Time International Ratio 3.3 Sodium Level 147 mmol/L Potassium Level 3.4 mmol/L Chloride Level 109 mmol/L Carbon Dioxide Level 27 mmol/L Anion Gap 11.0 mmol/L Blood Urea Nitrogen 13 mg/dl Creatinine 0.99 mg/dl Est Creatinine Clear Calc Drug Dose 50.8 ml/min Estimated GFR () 63.3 Estimated GFR (Non- 54.6 BUN/Creatinine Ratio 13.5 Random Glucose 113 mg/dl Calcium Level 8.8 mg/dl Magnesium Level 1.4 mg/dl Thyroid Stimulating Hormone (TSH) 1.090 uIu/ml Venous Blood pH 7.47 Venous Blood Partial Pressure CO2 37 mmHg Venous Blood Partial Pressure O2 60 mmHg Venous Blood HCO3 26 mmol/L Venous Blood Oxygen Saturation 89.0 % Venous Blood Base Excess 2.7 mmol/L Assessment and Plan 80yo female: 1. acute/chronic diastolic CHF/right-heart failure (cor pulmonale) - acute component appears improved/resolved. Actually looks volume depleted today. No diuretic. Continue beta andres, 2. acute kidney injury - felt to be volume depletion at admission - resolved. 3. a. fib/flutter - long-standing per records. Despite amiodarone use she has not maintained NSR. Asked [facility] to weight in on her anti-arrhythmics and a. fib. Cont coumadin, BB, etc. 4. hypothyroidism - most recent TSH was compensated; cont levothyroxine. 5. b/l wheezing - if pulmonary edema is resolved this is likely reactive bronchitis in the setting of her sinus infection and ?RLL pneumonia. Add xopenex/atrovent. 6. CKD stage 3 - creatinine back to baseline. 7. CAD s/p CABG - EKG 5 days ago and then again today with inverted anterior T waves. I have also asked [facility] for their recommendations for her CAD. Poor candidate for any invasive procedure. Cont asa, statin, BB, nitrates. 8. hypomagnesemia - will make a. fib worse. Replace mag sulfate IV, repeat mag level AM. 9. hypokalemia - will make a. fib worse. Replace, repeat K in AM. 10. DVT proph - coumadin; daily INR. 11. sinusitis with possible RLL pneumonia - remains on levaquin; day #09/14 today. 12. dementia - mental status at baseline? Would need to check with SNF to see what her baseline is. 13. acute hypercarbic resp failure - improving slowly with Rx of CHF, pneumonia , etc. PT, OT consults Continued [facility] stay due to: abnormal vital signs, voiding difficulties, ambulation difficulties, multiple IV medications needed Discharge planning: custodial facility
--- NOTE | 2016-05-06 21:55 | CARDIOLOGY CONSULTATION ---
DATE OF CONSULTATION: 05/06/2016 REFERRING PHYSICIAN: Dr. Cobos. INDICATIONS: Atrial fibrillation, abnormal EKG. HISTORY OF PRESENT ILLNESS: The patient is a complex 80-year-old female whose underlying history is notable for moderate dementia. She is currently a resident of [facility]. Her underlying history is notable for: Atherosclerotic coronary artery disease status post coronary artery bypass grafting in September 1997 with 5 separate grafts with followup cardiac catheterization in April 2002 demonstrating severe [place] vessel disease with patent grafts. She has a history of obstructive sleep apnea on CPAP therapy, chronic renal insufficiency, hyperlipidemia, chronic spinal stenosis. She was hospitalized at [facility] in January 2015 with a septic shock. Course complicated by new onset atrial fibrillation. She underwent initial cardioversion after loading with amiodarone, but lapsed back into atrial fibrillation; however as an outpatient, she had spontaneous return to sinus rhythm. The patient presents now. Per review of records, with patient poor historian, having been treated at [facility] for worsening cough and respiratory status, pneumonia with failure to improve on outpatient medical therapies. She was ultimately transferred for inpatient management and has responded to IV antibiotics since admission though chest x-ray continues to manifest increased interstitial markings. The patient last evening lapsed back into atrial fibrillation. She is referred now for further evaluation. The patient is a rather poor historian, but does now currently deny any complaints of chest pain or shortness of breath, notes cough since hospitalization has improved. Main complaints are constipation and bowel issues. REVIEW OF SYSTEMS: Otherwise negative or unobtainable. ALLERGIES: CORTISONE, VALPROIC ACID. MEDICATIONS PRIOR TO HOSPITALIZATION: Xanax 1 mg p.o. b.i.d., amiodarone 100 mg q.a.m., aspirin 81 mg q.a.m., Lipitor 10 mg p.o. daily, calcium carbonate with D one tablet daily, cholecalciferol 2000 units q.a.m., furosemide 40 mg p.o. daily, gabapentin 300 mg b.i.d., Imdur 30 mg p.o. daily, Synthroid 137 mcg p.o. daily, metoprolol 50 mg a.m. and 25 mg p.m., Protonix 40 mg p.o. daily, potassium chloride 10 mEq p.o. every day, ranitidine 150 mg at bedtime, valacyclovir 1 gram q.a.m., warfarin 3 mg q.p.m. The patient also had received ceftriaxone with limited effect. PAST SURGICAL HISTORY: Notable for coronary artery bypass grafting x5 in 1997. FAMILY HISTORY: Noncontributory. SOCIAL HISTORY: The patient is a nonsmoker, nondrinker, currently a resident of [facility], minimally mobile there. She does "get out of bed" with assistance. PHYSICAL EXAMINATION: VITAL SIGNS: Heart rate is 100, blood pressure is 98/61 with patient examined lying nearly flat in bed. NECK: Extremely thick. No distinct jugular venous distention is present. There are no audible carotid bruits. LUNGS: Reveal few scattered crackles and rhonchi on the right greater than left. CARDIOVASCULAR: Irregularly irregular. There is no audible murmur or rub. ABDOMEN: Obese, soft with large panniculus. EXTREMITIES: Reveal chronic stasis changes of both lower extremities. There is no palpable cord or Cherri's sign. LABORATORY DATA: Electrolytes this morning; sodium is 147, potassium is 3.4, chloride is 109, bicarbonate is 27, BUN is 13, creatinine 0.99. INR is 3.3. White cell count is 6.9, hemoglobin is 10.3. Chest x-ray reveals diffuse interstitial markings and cardiomegaly. Echocardiogram earlier this same admission demonstrated technically limited study with preserved LV systolic function, [id number] left ventricular hypertrophy, mild mitral insufficiency, no significant aortic stenosis or valvular disease. IMPRESSION: Complex 80-year-old female with issues as follows: Acute respiratory distress, probable pneumonia complicated by component of volume overload secondary to therapies and medications. She has since not received IV diuretics, but has lapsed back into atrial fibrillation as in the past, likely in part due to electrolyte anomalies. EKGs did demonstrate chronic ST segment changes, slightly more pronounced in the anterior leads. Echocardiogram was personally reviewed and continues to demonstrate preserved LV systolic function. RECOMMENDATIONS: For time being, would increase amiodarone to 200 mg twice per day. I suspect given the patient's small LV cavity size, she will be poorly tolerant of elevated heart rates. Would continue increased dose of metoprolol at 50 mg twice per day and anticoagulation with warfarin. TSH will be ordered to exclude amiodarone-induced hypothyroidism though this appears to be managed well as an outpatient. Current exam does not fit with significant volume overload or congestive heart failure. EKGs are likely reflective of patient's recent illness and underlying ischemic heart disease. QT is not prolonged, we will reduce isosorbide slightly to aid blood pressures. We will continue to follow the patient in the hospital.
[2016-05-07] VITALS (13 sets, daily range): BP systolic 88–128; BP diastolic 48–74; PULSE 62–110; TEMP 36.5–37.4; O2SAT 94–98
[2016-05-07] MEDS: LEVALBUTEROL 1.25MG/0.5ML NEB INH SCH ×4 (02:29→21:00)
[2016-05-07] MEDS: IPRATROPIUM BROMIDE NEB SOLN 0.02% 2.5 ML VIAL INH SCH ×4 (02:29→21:00)
[2016-05-07] MEDS: LEVOTHYROXINE 137 MCG TAB PO SCH (06:00)
[2016-05-07 06:41] LABS: INR 3.2 (0.9-1.1); PROTHROMBIN TIME (PATIENT) 36.1 SECONDS (9.0-12.0)
[2016-05-07 07:06] LABS: BUN/CREATININE RATIO 12.6 (10-20); CALCIUM 8.5 mg/dl (8.5-10.1); CREATININE 1.2 mg/dl (0.60-1.20); MAGNESIUM 2.2 mg/dl (1.8-2.4); POTASSIUM 4.3 mmol/L (3.5-5.1)
[2016-05-07] MEDS: AMIODARONE 200 MG TAB PO SCH ×3 (08:20→20:39)
[2016-05-07] MEDS: PANTOprazole SOD 40 MG TAB PO SCH (08:20)
[2016-05-07] MEDS: POTASSIUM CHLORIDE 20 MEQ TABCR PO SCH (08:20)
[2016-05-07] MEDS: ATORVASTATIN 10 MG TAB PO SCH (08:20)
[2016-05-07] MEDS: ISOSORBIDE MONONITRATE 30 MG TABCR PO SCH (08:20)
[2016-05-07] MEDS: METOPROLOL TARTRATE 50 MG TAB PO SCH ×2 (08:21→20:37)
[2016-05-07] MEDS: CALCIUM 600MG + VIT D 400 IU TAB PO SCH (08:21)
[2016-05-07] MEDS: ASPIRIN 81 MG CHEW PO SCH (08:23)
--- NOTE | 2016-05-07 12:34 | PROGRESS NOTE ---
DATE: 05/07/2016 SUBJECTIVE: The patient seen and examined. Chart, medications, telemetry reviewed. The patient offers no complaints today. She did spontaneously convert back to sinus rhythm at approximately 9:00 a.m. this morning. She denies any current chest pains or discomfort. OBJECTIVE: VITAL SIGNS: Heart rate is 80, blood pressure is 119/78. NECK: Thick. There is no distinct jugular venous distention. LUNGS: Reveal diminished breath sounds. CARDIOVASCULAR: Regular. There is no S3 gallop. ABDOMEN: Soft. EXTREMITIES: Without significant edema. LABORATORY STUDIES: Sodium is 147, potassium is 4.3, chloride is 113, bicarbonate is 27, BUN is 15, creatinine is 1.2. EKG this morning reveals sinus rhythm with a rate of [address] segment changes. IMPRESSION: A 80-year-old female with history of paroxysmal atrial fibrillation and relapsed into atrial fibrillation during this hospitalization were noncardiac etiology, possibly in part due to hypokalemia in association with diuretic usage, now back in sinus rhythm. Recommend continuing amiodarone t.i.d. throughout today then back to 200 mg twice per day in a.m. Continue metoprolol isosorbide as previously ordered. EKGs do not demonstrate acute ischemia. She is chronically anticoagulated with warfarin. Would consider low dose diuretic on a p.r.n. basis post-hospital discharge. We will reduce potassium chloride back to once per day.
[2016-05-07] MEDS ORDERED: SODIUM CHLORIDE 0.45% 1000ML 1,000 ML IV SCH (14:00)
[2016-05-07] MEDS: WARFARIN SOD 2.5 MG TAB PO SCH (17:50)
[2016-05-07 17:51] LABS: VEN BLD GAS O2 SATURATION 92.7 %; VEN BLOOD GAS BASE EXCESS 1.7 mmol/L
[2016-05-07] MEDS: RANITIDINE HCL 150 MG TAB PO SCH (20:40)
--- NOTE | 2016-05-07 21:39 | Progress Note ---
Subjective Date of Service: May 07, 2016. Subjective Pt evaluation today including: conversation w/ patient, physical exam, chart review, lab review, conversation w/ computer systems consultant (cardiology) Voiding: davis catheter in place This am the patient converted from a. fib to NSR. She was sleepy during 2 visits to her room today. However, on a brief 3rd visit, she was finally awake and alert and following commands. Due to dementia a meaningful ROS was largely unobtainable but she did state "I' m ok." BPs today were low with less than robust urine output. Problem List Medical Problems: (1) PNA (pneumonia) Status: Acute (2) Sepsis Status: Acute Objective Vital Signs Date Time Temp Pulse Resp B/P Pulse Ox O2 Delivery O2 Flow Rate FiO2 05/07/16 20:35 76 120/68 05/07/16 19:49 36.5 84 19 108/65 96 Nasal Cannula 2.0 05/07/16 17:48 98/56 05/07/16 16:00 Nasal Cannula 2.0 05/07/16 15:17 36.8 70 18 88/48 97 Nasal Cannula 2.0 05/07/16 14:10 73 16 98 Nasal Cannula 2.0 05/07/16 13:32 72 98/61 05/07/16 12:31 36.9 62 18 89/53 98 2.0 05/07/16 12:10 Nasal Cannula 2.0 05/07/16 08:10 Nasal Cannula 2.0 05/07/16 07:51 36.6 99 18 128/74 96 2.0 05/07/16 07:36 110 16 95 Nasal Cannula 2.0 05/07/16 04:00 Nasal Cannula 2.0 05/07/16 03:45 37.4 92 16 97/66 98 Nasal Cannula 2.0 Humidified Oxygen 05/07/16 02:29 93 16 96 Nasal Cannula 2.0 05/07/16 00:00 94 Nasal Cannula 2.0 05/06/16 23:53 38.0 93 20 143/80 95 Nasal Cannula 2.0 Physical Exam General Appearance: no apparent distress, + obese ENT: + pertinent finding (MM dry) Neck: no JVD Respiratory/Chest: no respiratory distress, no accessory muscle use, + wheezing , + pertinent finding (course BS b/l, slight crackle bases) Cardiovascular: regular rate, rhythm, no gallop Abdomen: normal bowel sounds, non tender, soft, no organomegaly Extremities: no pedal edema Neurologic/Psychiatric: + pertinent finding (sleepy) Laboratory Results Last 24 Hours Test 05/07/16 05:56 05/07/16 17:41 Prothrombin Time 36.1 SECONDS Prothromb Time International Ratio 3.2 Sodium Level 147 mmol/L Potassium Level 4.3 mmol/L Chloride Level 113 mmol/L Carbon Dioxide Level 27 mmol/L Anion Gap 7.0 mmol/L Blood Urea Nitrogen 15 mg/dl Creatinine 1.20 mg/dl Est Creatinine Clear Calc Drug Dose 42.9 ml/min Estimated GFR () 50.1 Estimated GFR (Non- 43.3 BUN/Creatinine Ratio 12.6 Random Glucose 110 mg/dl Calcium Level 8.5 mg/dl Magnesium Level 2.2 mg/dl Venous Blood pH 7.42 Venous Blood Partial Pressure CO2 42 mmHg Venous Blood Partial Pressure O2 77 mmHg Venous Blood HCO3 26 mmol/L Venous Blood Oxygen Saturation 92.7 % Venous Blood Base Excess 1.7 mmol/L Ammonia 28.0 umol/L Vitamin B12 Level 677 pg/mL Assessment and Plan 80yo female: 1. acute/chronic diastolic CHF/right-heart failure (cor pulmonale) - acute component resolved. Cont with volume depletion. No diuretic again today. Continue beta andres if BP will allow. 2. encephalopathy in setting of dementia - checked VBG today - no hypercarbia. Ammonia/b12 normal. Suspect 2nd to low BP in setting of dementia. Mild hospital psychosis also possible. 3. a. fib/flutter - converted back to NSR with correction of low K/mag. Appreciate cardiology consultation. Agree w/ increase in amiodarone dose. Hopefully she will remain in NSR. 4. hypothyroidism - most recent TSH was compensated; cont levothyroxine. 5. b/l wheezing - likely reactive bronchitis in the setting of her sinus infection and ?RLL pneumonia. Cont xopenex/atrovent. 6. CKD stage 3 - creatinine back to baseline. 7. CAD s/p CABG - Cont asa, statin, BB, nitrates. 8. hypomagnesemia - resolved. 9. hypokalemia - resolved. 10. DVT proph - coumadin; daily INR. 11. sinusitis with possible RLL pneumonia - remains on levaquin; day #7/10 today. 12. acute hypercarbic resp failure - resolved. 13. hypernatremia - 1/2 NS at 75cc/hr; BMP in am. 14. ?dysphagia - speech eval attempted to call road design draftsperson in chart - unable to leave message poor oral intake and hypernatremia along with low BP necessitate ongoing hospitalization Continued [facility] stay due to: abnormal vital signs, voiding difficulties, ambulation difficulties, multiple IV medications needed Discharge planning: care home facility
[2016-05-08] VITALS (13 sets, daily range): BP systolic 107–124; BP diastolic 57–77; PULSE 67–79; TEMP 36.4–37.1; O2SAT 94–98
[2016-05-08] MEDS: IPRATROPIUM BROMIDE NEB SOLN 0.02% 2.5 ML VIAL INH SCH ×4 (02:17→19:05)
[2016-05-08] MEDS: LEVALBUTEROL 1.25MG/0.5ML NEB INH SCH ×4 (02:18→19:05)
[2016-05-08] MEDS: LEVOTHYROXINE 137 MCG TAB PO SCH (05:48)
[2016-05-08] MEDS: SODIUM CHLORIDE 0.45% 1000ML 1,000 ML IV SCH ×3 (05:49→19:53)
[2016-05-08 06:26] LABS: INR 3.4 (0.9-1.1); PROTHROMBIN TIME (PATIENT) 38.3 SECONDS (9.0-12.0)
[2016-05-08 06:42] LABS: BUN/CREATININE RATIO 15.6 (10-20); CALCIUM 8.2 mg/dl (8.5-10.1); CREATININE 1.2 mg/dl (0.60-1.20); POTASSIUM 4.6 mmol/L (3.5-5.1)
[2016-05-08] MEDS: ATORVASTATIN 10 MG TAB PO SCH (08:36)
[2016-05-08] MEDS: AMIODARONE 200 MG TAB PO SCH ×3 (08:36→20:48)
[2016-05-08] MEDS: ISOSORBIDE MONONITRATE 30 MG TABCR PO SCH (08:37)
[2016-05-08] MEDS: METOPROLOL TARTRATE 50 MG TAB PO SCH ×2 (08:37→20:49)
[2016-05-08] MEDS: POTASSIUM CHLORIDE 20 MEQ TABCR PO SCH (08:37)
[2016-05-08] MEDS: CALCIUM 600MG + VIT D 400 IU TAB PO SCH (08:37)
[2016-05-08] MEDS: PANTOprazole SOD 40 MG TAB PO SCH (08:37)
[2016-05-08] MEDS: ASPIRIN 81 MG CHEW PO SCH (08:40)
[2016-05-08] MEDS: LEVOFLOXACIN 750 MG TAB PO SCH (11:22)
[2016-05-08] MEDS: RANITIDINE HCL 150 MG TAB PO SCH (20:48)
--- NOTE | 2016-05-08 21:04 | Progress Note ---
Subjective Date of Service: May 08, 2016. Subjective Pt evaluation today including: conversation w/ patient, physical exam, chart review, lab review, conversation w/ franchise field consultant (cardiology), review of inpatient medication list Pain: numbness b/l lower extremities; she can't tell me when it started PO Intake: improved per staff Voiding: davis catheter in place tele - NSR overnight today she is much more awake, alert, and believes she is in the hospital got the year wrong (2013) staff contacted [facility] where she lives - they report she is wheelchair bound and they use marah lift to transfer her from bed to chair she is typically oriented x 3 at baseline pt c/o numbness in both legs and weakness - unknown how long Problem List Medical Problems: (1) PNA (pneumonia) Status: Acute (2) Sepsis Status: Acute Review of Systems Respiratory: No cough, No dyspnea at rest Cardiac: No chest pain, No orthopnea Abdomen: No pain Objective Vital Signs Date Time Temp Pulse Resp B/P Pulse Ox O2 Delivery O2 Flow Rate FiO2 05/08/16 20:49 36.8 79 123/77 05/08/16 20:12 36.8 78 20 120/57 97 Nasal Cannula 2.0 Humidified Oxygen 05/08/16 19:09 71 18 97 Nasal Cannula 2.0 05/08/16 16:14 36.4 77 18 124/75 96 Nasal Cannula 2.0 05/08/16 16:00 97 Nasal Cannula 2.0 05/08/16 12:30 36.4 71 20 119/74 97 Nasal Cannula 2.0 05/08/16 12:30 Nasal Cannula 2.0 05/08/16 08:16 36.7 73 18 111/72 98 Nasal Cannula 2.0 05/08/16 08:00 Nasal Cannula 2.0 05/08/16 06:53 72 18 97 Nasal Cannula 2.0 05/08/16 04:51 36.9 70 18 113/65 98 2.0 05/08/16 04:00 Nasal Cannula 2.0 05/08/16 02:18 67 18 95 Nasal Cannula 2.0 05/08/16 00:29 37.1 16 107/68 98 2.0 05/08/16 00:00 Nasal Cannula 2.0 05/07/16 22:23 80 18 96 Nasal Cannula 2.0 Physical Exam General Appearance: no apparent distress, + obese ENT: pharynx normal Neck: no JVD Respiratory/Chest: no respiratory distress, no accessory muscle use, + wheezing Cardiovascular: regular rate, rhythm, no gallop, no murmur Abdomen: normal bowel sounds, non tender, soft, no organomegaly Extremities: no pedal edema Neurologic/Psychiatric: alert, + motor weakness (b/l legs - L>R (hip flexion, knee flexion/extension, dorsiflexion of feet) ), + disoriented, + pertinent finding (significant increased tone in both legs, much worse on left) Skin: no rash Comments: reflexes - 1-2+ b/l knees, not brisk Laboratory Results Last 24 Hours Test 05/08/16 05:34 Prothrombin Time 38.3 SECONDS Prothromb Time International Ratio 3.4 Sodium Level 144 mmol/L Potassium Level 4.6 mmol/L Chloride Level 112 mmol/L Carbon Dioxide Level 26 mmol/L Anion Gap 6.0 mmol/L Blood Urea Nitrogen 19 mg/dl Creatinine 1.20 mg/dl Est Creatinine Clear Calc Drug Dose 42.5 ml/min Estimated GFR () 50.1 Estimated GFR (Non- 43.3 BUN/Creatinine Ratio 15.6 Random Glucose 103 mg/dl Calcium Level 8.2 mg/dl Assessment and Plan 80yo female: 1. acute/chronic diastolic CHF/right-heart failure (cor pulmonale) - acute component resolved. Now volume depleted and getting IVF. cont beta andres. 2. encephalopathy in setting of dementia - improved mentation today. continue to Rx any infection and give supportive care. 3. a. fib/flutter - converted back to NSR with correction of low K/mag. Appreciate cardiology consultation. Cont with increase in amiodarone dose. Hopefully she will remain in NSR. 4. hypothyroidism - most recent TSH was compensated; cont levothyroxine. 5. b/l wheezing - likely reactive bronchitis in the setting of her sinus infection and ?RLL pneumonia. Cont xopenex/atrovent. 6. CKD stage 3 - creatinine back to baseline. 7. CAD s/p CABG - Cont asa, statin, BB, nitrates. 8. hypomagnesemia and hypokalemia - resolved. 9. c/o bilateral leg numbness/weakness - there is an MRI from 09/2014 showing considerable DJD of the L-spine. The reason for that study was "left leg numbness and weakness." I believe her symptoms are likely from L-spine spinal stenosis. She has been chronically bed-bound or wheelchair bound for quite some time. Her LE increased tone would argue for chronic LE weakness. I am not sure that repeating an MRI would be beneficial or helpful. If worsening pathology is found she is poor candidate for any intervention. Recent b12 level normal. 10. DVT proph - hold coumadin today, INR tomorrow, hopefully resume coumadin then. 11. sinusitis with possible RLL pneumonia - remains on levaquin; day #8/ today. IMPROVED> 12. acute hypercarbic resp failure - resolved. 13. hypernatremia - resolved; cont 1/2 NS at 75cc/hr; BMP in am. 14. ?dysphagia - speech eval appreciated; passed swallow eval attempted to call salesperson used cars in chart on 05/07 and 05/08/16 - unable to leave message back to SNF next 48 hours? Continued [facility] stay due to: abnormal vital signs, voiding difficulties, ambulation difficulties, multiple IV medications needed Discharge planning: shelter facility
[2016-05-09] VITALS (7 sets, daily range): BP systolic 109–135; BP diastolic 68–75; PULSE 73–85; TEMP 36.4–36.6; O2SAT 84–99
[2016-05-09] MEDS: IPRATROPIUM BROMIDE NEB SOLN 0.02% 2.5 ML VIAL INH SCH ×3 (02:07→14:36)
[2016-05-09] MEDS: LEVALBUTEROL 1.25MG/0.5ML NEB INH SCH ×3 (02:08→14:36)
[2016-05-09] MEDS: LEVOTHYROXINE 137 MCG TAB PO SCH (05:58)
[2016-05-09 06:06] LABS: INR 3.4 (0.9-1.1); PROTHROMBIN TIME (PATIENT) 38.8 SECONDS (9.0-12.0)
[2016-05-09 06:30] LABS: BUN/CREATININE RATIO 17.8 (10-20); CALCIUM 8.1 mg/dl (8.5-10.1); CREATININE 0.9 mg/dl (0.60-1.20); POTASSIUM 4.5 mmol/L (3.5-5.1)
[2016-05-09] MEDS: METOPROLOL TARTRATE 50 MG TAB PO SCH (08:13)
[2016-05-09] MEDS: PANTOprazole SOD 40 MG TAB PO SCH (08:13)
[2016-05-09] MEDS: AMIODARONE 200 MG TAB PO SCH (08:14)
[2016-05-09] MEDS: POTASSIUM CHLORIDE 20 MEQ TABCR PO SCH (08:14)
[2016-05-09] MEDS: ASPIRIN 81 MG CHEW PO SCH (08:14)
[2016-05-09] MEDS: CALCIUM 600MG + VIT D 400 IU TAB PO SCH (08:14)
[2016-05-09] MEDS: ISOSORBIDE MONONITRATE 30 MG TABCR PO SCH (08:14)
[2016-05-09] MEDS: ATORVASTATIN 10 MG TAB PO SCH (08:14)
--- NOTE | 2016-05-09 12:37 | DIAGNOSTIC IMAGING REPORT ---
CT SCAN OF THE THORACIC SPINE WITHOUT IV CONTRAST CLINICAL HISTORY: Lower extremity numbness. COMPARISON STUDY: Chest CT dated 05/01/2016. TECHNIQUE: CT scan of the thoracic spine is performed from the lower cervical spine to the upper lumbar spine. Images are reviewed in the axial, sagittal, and coronal planes. IV contrast was not administered for this examination. FINDINGS: The skeletal structures are osteopenic. There is no evidence of fracture or malalignment. Vertebral body height and alignment are preserved throughout the thoracic spine. The transverse and spinous processes appear intact. No lytic or blastic lesions are seen. There is only mild degenerative disc space narrowing seen throughout the thoracic spine. No large disc herniation is identified. The central canal is clear as visualized. The imaged posterior ribs appear intact. The paraspinous soft tissues are normal as visualized. There are small pleural effusions with dependent atelectasis. Minimal patchy airspace opacities are present in the right lower lobe. Atherosclerotic calcification is noted in the thoracic aorta. The heart appears mildly enlarged. IMPRESSION: 1. No acute bony abnormality is seen involving the thoracic spine. 2. There are small pleural effusions which appear new from 05/01/2016. 3. Mild patchy airspace opacities are present in the right lower lobe. Correlate clinically for evidence of a mild infectious or inflammatory pneumonitis. Dictated: 05/09/2016 12:13 PM Transcribed: 05/09/2016 12:37 PM [email or web address] Electronically signed by: Tank Nash M.D. 05/09/2016 12:41 PM Dictated Date/Time: 05/09/2016 12:13 PM
--- NOTE | 2016-05-09 12:47 | DIAGNOSTIC IMAGING REPORT ---
LUMBAR SPINE CT CT DOSE: 2143.77 mGy.cm HISTORY: Pain. Neuropathy. eval spinal stenosis TECHNIQUE: Multiaxial CT images of the lumbar spine were performed and reformatted in the sagittal and coronal plane without the use of contrast. COMPARISON: MRI dated 09/12/2014 FINDINGS: Somewhat difficult compared to the prior study due to patient body habitus as well as variations in modality. Significant degenerative intervertebral this changes throughout. Vacuum disc are noted L5-S1 and L2-L3. Atherosclerotic change and ectasia abdominal aorta. Transaxial images suggest no major abnormality at the L1-L2 level or at L2-L3. Broad-based bulging disc is most likely present at L2-L3. The L3-L4 level demonstrates moderate multifactorial narrowing of the spinal canal. There is mild narrowing of the left and to lesser extent right neural foramina. The L4-L5 level shows moderate multifactorial narrowing of the spinal canal. Appears be a mild broad-based disc herniation. There appears to be osteophytic narrowing of the right as well as left neural foramina. Components of this potentially related to bulging disc components. The L5-S1 level demonstrates lateral bulging disc components. There is mild narrowing of the neuroforamina bilaterally. No major impact upon the thecal sac is present. IMPRESSION: 1. Somewhat difficult scan to interpret due to the patient's large body habitus. 2. Moderate multifactorial narrowing of the spinal canal at L3-L4, as well as at L4-L5. 3. Moderate narrowing of the neuroforamina bilaterally from L4 through S1. 4. Moderate S-shaped scoliosis with considerable degenerative intervertebral disc change primarily at L5-S1 and L2-L3 Electronically signed by: Henrik Tuttle M.D. 05/09/2016 12:46 PM Dictated Date/Time: 05/09/2016 12:37 PM
[2016-05-09] MEDS ORDERED: ALPRAZOLAM 0.5 MG TAB PO STA (13:30)
[2016-05-09] MEDS ORDERED: METO-551 PO (13:34)
[2016-05-09] MEDS ORDERED: CMD2 PO (13:34)
[2016-05-09] MEDS ORDERED: XPNINS1255 INH (13:34)
[2016-05-09] MEDS ORDERED: ALPR0.5T PO (13:34)
[2016-05-09] MEDS ORDERED: ALPR1TAB2 PO (13:34)
[2016-05-09] MEDS ORDERED: GFNSR600 PO (13:34)
[2016-05-09] MEDS ORDERED: LVQ750 PO (13:34)
[2016-05-09] MEDS ORDERED: FURO40TA3 PO (13:34)
[2016-05-09] MEDS ORDERED: ATRINS INH (13:34)
[2016-05-09] MEDS ORDERED: CRD200 PO (13:34)
--- NOTE | 2016-05-09 13:51 | Discharge Instructions ---
Discharge Instructions Admission Reason for Admission: Right-sided pneumonia Discharge Discharge Diagnosis / Problem: RLL pneumonia. Atrial fibrillation. Acute kidney injury. Discharge Goals Goal(s): Learn about illness, Diagnostic testing, Therapeutic intervention Activity Recommendations Activity Level: Assistance Required (with use of LIFT) Therapies: Physical Therapy, Occupational Therapy . Additional Information Patient informed of condition: Yes Advance Directives: Yes DNR: Yes Level of Care: Skilled Communicable Disease: No Prognosis: Stable Oxygen at (LPM): may need assessment for nocturnal O2; consider night-time oximetry study. Abreu Catheter: No Instructions / Follow-Up Instructions / Follow-Up Additional instructions from Dr. Cobos - 1. antibiotics - Ms. Sanches has only 1 more dose of levofloxacin. Please take on 05/10/16 then stop. 2. coumadin - RESUME on 05/10/16. SKIP the coumadin on 05/09/16. 3. lasix (furosemide) - RESUME on AM of 05/10/16. 4. amiodarone - take 200mg twice daily for 1 month, then decrease to 200mg once daily thereafter. Start the amiodarone on the evening of 05/09/16. 5. follow-up appointments - * see medical record transcriber of SNF within 48 hours * see [facility] - ideally within 1 week for a. fib, CHF , CAD, etc Current Hospital Diet Patient's current hospital diet: AHA Diet (Heart Healthy) Discharge Diet Recommended Diet: AHA Diet (Heart Healthy) (SLIPPERY diet: choose loose, moist foods; avoid dry, doughy, pasty foods; use condiments liberally to make foods more slippery.) Procedures Procedures Performed: echocardiogram showing diastolic dysfunction and mild right ventricular dysfunction (cor pulmonale) Pending Studies Studies pending at discharge: no Physician Orders On Transfer Special Precautions: GERD precautions: upright for meals and 20 minutes after meals, head of bed elevated at least 30-degrees at all times, alternate solids and liquids during meals Vital Signs: per [place] Routine as well as daily o2 sats Weigh: daily report any weight gain of more than 2-3 pounds in 1-2 days to medical record transcriber immediately Additional Orders: 1. MORNING INR daily for the next 5 days; start on AM of 05/10/16. Report all INR results to medical record transcriber. 2. BMP and magnesium level in 4-5 days for stability. POLST Discussion: Not Applicable Medical Emergencies . Who to Call and When: Medical Emergencies: If at any time you feel your situation is an emergency, please call 911 immediately. . Non-Emergent Contact Non-Emergency issues call your: Primary Care Provider Call Non-Emergent contact if: temperature is above 100.5, your pain is concerning you, you have any medication questions . . "Provider Documentation" section prepared by Isak Cobos. Core Measure Problem Core Measures: None
--- NOTE | 2016-05-09 16:40 | Discharge Summary ---
Discharge Summary Admission Date: May 01, 2016 at 16:52 Discharge Date: May 09, 2016 Discharge Disposition: snf facility ([facility] ) Principal Diagnosis: acute hypercarbic respiratory failure 2nd to RLL pneumonia Problems/Secondary Diagnoses: 1. paroxysmal atrial fibrillation 2. CKD stage III 3. Dyslipidemia 4. CAD s/p CABG 5. GERD 6. history of TIA 7. Anxiety 8. Herpes Simplex 9. Hypothyroidism 10. Neuropathy 12. severe lumbar DJD/spinal stenosis 13. acquired paraplegia status due to #12 above 14. hypernatremia - resolved 15. acute kidney injury - resolved 16. hypoalbuminemia 17. reactive bronchitis due to pneumonia - resolving 18. metabolic encephalopathy - resolved 19. severe sepsis 2nd to pneumonia - resolved 20. hypokalemia/hypomagnesemia - resolved 21. acute sinusitis - resolved clinically Immunizations: Have You Had Influenza Vaccine: Unknown Influenza Vaccine Date: Jan 09, 2013 History of Tetanus Vaccine?: Unknown History of Pneumococcal: Unknown History of Hepatitis B Vaccine: Unknown Procedures: 1. CT abd/pelvis - IMPRESSION: 1. No significant change compared to the prior study. 2. A 5 mm left renal pelvis calcification. No hydronephrosis. 3. No definite bowel wall thickening or obstruction. 4. A stable 9 mm saccular aneurysm within the distal abdominal aorta. 5. Patchy densities within the base of the right lower lobe. This could represent atelectasis or pneumonia. 6. Question of tiny stones or sludge within the gallbladder. No gallbladder wall thickening. 7. Hepatic steatosis. 2. CT chest - IMPRESSION: 1. Scattered mild groundglass opacities, most evident within the right lower lobe. Atelectasis is favored. An mild infectious process could appear similar. 2. 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 3. Moderate cardiomegaly and extensive coronary artery calcification. 3. CT thoracic spine - IMPRESSION: 1. No acute bony abnormality is seen involving the thoracic spine. 2. There are small pleural effusions which appear new from 05/01/2016. 3. Mild patchy airspace opacities are present in the right lower lobe. Correlate clinically for evidence of a mild infectious or inflammatory pneumonitis. 4. CT lumbar spine - IMPRESSION: 1. Somewhat difficult scan to interpret due to the patient's large body habitus. 2. Moderate multifactorial narrowing of the spinal canal at L3-L4, as well as at L4-L5. 3. Moderate narrowing of the neuroforamina bilaterally from L4 through S1. 4. Moderate S-shaped scoliosis with considerable degenerative intervertebral disc change primarily at L5-S1 and L2-L3. 5. echocardiogram - * Normal left ventricular systolic function. EF 65-70%. * Mild concentric left ventricular hypertrophy. * Moderate left atrial dilatation. * Mild mitral regurgitation. * Mild right ventricular systolic dysfunction. Consultations: 1. cardiology - Justo Dang MD 2. PT, OT, speech therapies Medication Reconciliation New Medications: Guaifenesin Ext Rel (Mucinex Ext Rel) 600 Mg Tabcr 1200 MG PO Q12 for 10 Days, #40 TAB 0 Refills Ipratropium Clive (Ipratropium Clive) 0.5 Mg/2.5 Ml Nebu 0.5 MG INH Q6H for 10 Days, 0 Refills Levalbuterol (Levalbuterol) 1.25 Mg/0.5 Ml Nebu 1.25 MG INH Q6H for 10 Days, 0 Refills Levofloxacin (Levofloxacin) 750 Mg Tab 750 MG PO once, #1 TAB give on 05/10/16 then discontinue. Changed Medications: Amiodarone HCl (Amiodarone HCl) 200 Mg Tab 200 MG PO DIRECTED, #60 TAB 2 Refills (Changed from: 100 MG; QAM; Refills: ) starting evening of 05/09/16 -take 200mg po BID x 1 month, then decrease to 200mg once daily thereafter. Furosemide (Lasix) 40 Mg Tab 40 MG PO QAM, #30 TAB 2 Refills (Changed from: DAILY; Refills: ) start AM of 05/10/16 Metoprolol Tartrate (Lopressor) 50 Mg Tab 50 MG PO HS, #30 TAB 2 Refills (Changed from: 25 MG; Refills: ) Warfarin Sod (Coumadin) 2 Mg Tab 2 MG PO DAILY, #30 1 Refill (Changed from: Warfarin Sod (Jantoven) 3 Mg Tab 3 Mg PO PM) begin on 05/10/16 Continued Medications: Acetaminophen (Tylenol) 325 Mg Tab 650 MG PO BID PRN for Pain or Fever, TAB Alprazolam (Xanax) 1 Mg Tab 1 TAB PO BID, #60 TAB 0 Refills (This prescription has been renewed) take at 1230 and 1630 Alprazolam (Xanax) 0.5 Mg Tab 0.5 MG PO QAM, #30 TAB 0 Refills (This prescription has been renewed) Aspirin (Aspirin Chewable) 81 Mg Chew 81 MG PO QAM, TAB Atorvastatin (Lipitor) 10 Mg Tab 10 MG PO DAILY, TAB Calcium Carbonate-Vitamin D W/ (Caltrate 600 Plus) 1 Tab Tab 1 TAB PO DAILY, TAB Cholecalciferol (Vitamin D) 2,000 Unit Tab 1 TAB PO QAM Cranberry-Vitamin C-Vitamin E (Cranberry) 1 Cap Cap 1 CAP PO QAM Docusate Sodium (Docusate Sodium) 100 Mg Cap 2 CAP PO HS for 15 Days, CAP Gabapentin (Gabapentin) 300 Mg Cap 300 MG PO BID, #60 Isosorbide Mononitrate Ext Rel (Imdur Ext Rel) 30 Mg Ertab 30 MG PO QAM, TAB Levothyroxine Sodium (Synthroid) 137 Mcg Tab 1 TAB PO DAILY Metoprolol Tartrate (Lopressor) 50 Mg Tab 50 MG PO QAM, TAB Pantoprazole (Protonix) 40 Mg Tab 1 TAB PO DAILY, #30 TAB Polyethylene Glycol-Propylene (Systane) 1 Kendra Kendra 1 DROPS OPB DAILY, #30 ML 5 Refills Potassium Chloride (Micro-K Ext Rel) 10 Meq Capcr 10 MEQ PO DAILY, CAP Ranitidine Hcl (Zantac) 150 Mg Tab 150 MG PO HS, TAB Valacyclovir Hcl (Valtrex) 1 Gm Tab 1 GM PO QAM, #21 TAB Referrals At Discharge Follow up Referrals: [facility] Referral - Within 1 Week with Justo Dang M.D. Discharge Exam Physical Exam: General Appearance: no apparent distress, + obese ENT: pharynx normal Neck: no JVD Respiratory/Chest: no respiratory distress, no accessory muscle use, + decreased breath sounds (both bases), + rales (scant, right base), + wheezing ( end-exp, b/l) Cardiovascular: regular rate, rhythm, no gallop, no murmur, normal peripheral pulses Abdomen / GI: normal bowel sounds, non tender, soft, no organomegaly Extremities: no pedal edema Neurologic/Psychiatric: alert, oriented x 3, + motor weakness (b/l legs; unable to flex the hips; minimal ability to plantarflex/dorsiflex the ankles ) Skin: no rash Hospital Course HISTORY OF PRESENT ILLNESS: Patient is a pleasant 80yo female with PMH of a.fib, CKD stage III, dyslipidemia , CAD s/p CABG, GERD, hypothyroidism, TIA, and anxiety who presented to the ED from [facility] because of worsening lethargy and failed treatment of Rocephin for pneumonia/UTI. Per [facility] records, patient became lethargic over the weekend. CXR with possible pneumonia and dirty U/A with urine culture growing more than 3 organisms. Patient was started on IM Rocephin on 04/27. Today patient appeared more lethargic and patient was sent to the ED. Patient admits to SOB and a dry cough. +bilateral knee pain. Patient denies any other complaints or significant pain. Limited history/ROS due to patient's status. HOSPITAL COURSE: 1. acute hypercarbic respiratory failure 2nd to RLL pneumonia +/- CHF - the patient was supported with IV antibiotic therapy, oxygen, nebs, etc. She made gradual improvement over the course of her stay and O2 was weaned off. She completed, in total, 9 days of antibiotic therapy for her pneumonia. Records indicate a history of ROCKY and prior CPAP use but to my knowledge she has not been using such. She would likely benefit from a repeat outpatient sleep study. Alternatively, an overnight oximetry study could be obtained if she refuses to use CPAP. 2. acute/chronic diastolic CHF/right-heart failure (cor pulmonale) - acute component resolved with use of intermittent IV diuretics. She was previously taking lasix 40mg once daily as an outpatient. This will be resumed on 05/10/16, but careful attention to volume status as well as electrolytes/renal function will be needed. Recommend follow-up with [facility] within 1-2 weeks of discharge. 3. severe sepsis 2nd to RLL pneumonia - this resolved with appropriate antibiotic therapy. Blood cultures remained negative while here. She will need 1 additional day of levaquin on 05/10/16 then antibiotics can be stopped. 4. metabolic encephalopathy - resolved with treatment of #1 and #3 above. 5. paroxysmal atrial fibrillation - this is a chronic issue, and during this stay she had multiple runs of PAF as well. She converted back to NSR with correction of low K/mag. Cardiology was consulted as she had been taking amiodarone as an outpatient prior to this admission. It was recommended that her amiodarone be increased. She will take 200mg BID for 1 month at time of discharge, then 200mg once daily thereafter. Due to antibiotic usage her INR remained high (3 - 3.5) much of her stay. INR on day of discharge was 3.4. She will HOLD her coumadin on 05/09/16, then resume her coumadin on 05/10/16 at a dose of 2mg daily. She will need daily INRs for about 5 days to ensure INR is 2-3. 6. reactive bronchitis/wheezing - likely due to her RLL pneumonia. Continue nebulizers, mucinex, etc. Steroids were deferred while here. Most recent chest x-rays/imaging did not show pulmonary edema/CHF. 7. acute kidney injury in the setting of CKD stage 3 - admission Cr was 2.9, improving to 0.9 at discharge. 8. CAD s/p CABG - she will continue aspirin, statin, beta andres, and long- acting nitrate. 9. patient complaint of bilateral leg numbness/weakness - there is an MRI from 09/2014 showing considerable DJD of the L-spine. She has been chronically bed-bound or wheelchair bound for several years according to outside records. She was deemed NOT a candidate for lumbar back surgery by Darya Moreau several years ago. Repeat lumbar spine CT this admission continues to show significant L-spine DJD. Thoracic spine CT did not demonstrate any serious pathology. 10. acute sinusitis - CT head showed fairly severe pansinusitis. Antibiotics for her pneumonia should suffice. She did not have any sinus symptoms at time of discharge. 11. FEN - all electrolyte disturbances including low K and magnesium as well as hypernatremia were all normalized prior to discharge. She was seen by speech therapy for a bedside swallow evaluation and a "slippery " diet was recommended. Repeat BMP and magnesium in about 5 days after discharge recommended to ensure stability of creatinine/electrolytes. Lastly, the patient's medication list showed usage of valtrex prior to admission. grants director of [facility] - upon patient return please clarify if this medication is for chronic suppression or was for acute use only. Total Time Spent: Greater than 30 minutes This includes examination of the patient, discharge planning, medication reconciliation, and communication with other providers. Discharge Instructions Please refer to the electronic Patient Visit Report (Discharge Instructions) for additional information. Follow-Up 1. see neuropsychology medical consultant of [facility] within 48 hours 2. see Justo Dang MD - [facility] - within 1 week if possible Additional Copies To [place] [place]; Justo Dang M.D.; Raffi Rollins M.D.; Raz Bell M.D.
[2016-05-09] MEDS ORDERED: AMIODARONE 200 MG TAB PO SCH (21:00)
== END 2016-05-09 15:13 | DRG 871 ==
LOC: ENRESERVDT → ENRESERVTM → EDBD 12:32 → C.EDB 12:33 → C.2T 16:52 → C.MED 05-03 11:31
PROVIDERS: ADMIT Internal Medicine; ATTEND Internal Medicine
DX: A41.9 Sepsis, unspecified organism (principal); J18.9 Pneumonia, unspecified organism; R65.20 Severe sepsis without septic shock; J96.01 Acute respiratory failure with hypoxia; J96.02 Acute respiratory failure with hypercapnia; I50.31 Acute diastolic (congestive) heart failure; G93.41 Metabolic encephalopathy; N17.9 Acute kidney failure, unspecified; Z68.41 Body mass index [BMI] 40.0-44.9, adult; I50.32 Chronic diastolic (congestive) heart failure; I13.0 Hypertensive heart and chronic kidney disease with heart failure and stage 1 through stage 4 chronic kidney disease, or unspecified chronic kidney disease; G82.20 Paraplegia, unspecified; E87.0 Hyperosmolality and hypernatremia; Z66 Do not resuscitate; T42.4X5A Adverse effect of benzodiazepines, initial encounter; I48.0 Paroxysmal atrial fibrillation; E87.5 Hyperkalemia; E86.0 Dehydration; R82.90 Unspecified abnormal findings in urine; R79.1 Abnormal coagulation profile; E83.42 Hypomagnesemia; R13.10 Dysphagia, unspecified; J01.90 Acute sinusitis, unspecified; J40 Bronchitis, not specified as acute or chronic; E87.6 Hypokalemia; E66.01 Morbid (severe) obesity due to excess calories; N18.3 Chronic kidney disease, stage 3 (moderate); I25.10 Atherosclerotic heart disease of native coronary artery without angina pectoris; M48.06 Spinal stenosis, lumbar region; M51.36 Other intervertebral disc degeneration, lumbar region; R29.898 Other symptoms and signs involving the musculoskeletal system; R20.0 Anesthesia of skin; F03.90 Unspecified dementia, unspecified severity, without behavioral disturbance, psychotic disturbance, mood disturbance, and anxiety; E78.5 Hyperlipidemia, unspecified; K21.9 Gastro-esophageal reflux disease without esophagitis; G47.33 Obstructive sleep apnea (adult) (pediatric); E03.9 Hypothyroidism, unspecified; G62.9 Polyneuropathy, unspecified; B00.9 Herpesviral infection, unspecified; F41.9 Anxiety disorder, unspecified; Z51.81 Encounter for therapeutic drug level monitoring; Z79.899 Other long term (current) drug therapy; Z79.01 Long term (current) use of anticoagulants; Z79.82 Long term (current) use of aspirin; Z95.1 Presence of aortocoronary bypass graft; Z86.73 Personal history of transient ischemic attack (TIA), and cerebral infarction without residual deficits; Z74.01 Bed confinement status; Z82.49 Family history of ischemic heart disease and other diseases of the circulatory system

== ENCOUNTER → 2016-06-11 | Outpatient (CLI) | payer OTHER ==
[~2016-06-11] MED LIST changes: +ATOR10TA88 PO; +ATRINS INH; -CALCIUM CARBONATE PO; +CALCTAB7 PO; +CMD2 PO; +DOCU100C31 PO; -DOXY1TAB6 PO; +FURO40TA3 PO; +GFNSR600 PO; +LEVO-519 PO; -LPT/40 PO; +LVQ750 PO; +METO-551 PO; -METO25TA3 PO; -METO50TA7 PO; +PANT1TAB48 PO; +POLYSOL4 OPB; -POTA-327 PO; +POTA10CA28 PO; -PRED1SUS3 OPL; -PRLSR20 PO; -WARF5TAB7 PO; +XPNINS1255 INH
[2016-06-11 08:30] LABS: BASO % 0.7 %; BASO ABS # 0.04 K/uL (0-0.2); EOS % 2.8 %; HEMATOCRIT 33.3 % (37-47); IG% 0.2 %; LYMPH % 26.1 %; MEAN CELL VOLUME 85.6 fL (80-100); MEAN CORPUSCULAR HGB CONC 30.3 g/dl (32-36); MEAN PLATELET VOLUME 9.2 fL (7.4-10.4); MONO % 16.6 %; NEUT % 53.6 %; PLATELET COUNT 348 K/uL (130-400); RED BLOOD COUNT 3.89 M/uL (4.2-5.4); WHITE BLOOD COUNT 5.36 K/uL (4.8-10.8)
[2016-06-11 08:38] LABS: BLOOD UREA NITROGEN 27 mg/dl (7-18); BUN/CREATININE RATIO 29.2 (10-20); CARBON DIOXIDE 29 mmol/L (21-32); CHLORIDE 103 mmol/L (98-107); CREATININE 0.92 mg/dl (0.60-1.20); GLUCOSE 131 mg/dl (70-99); POTASSIUM 3.9 mmol/L (3.5-5.1); SODIUM 141 mmol/L (136-145)
[2016-06-11 08:44] LABS: PROTHROMBIN TIME (PATIENT) 55.8 SECONDS (9.0-12.0)
[2016-06-11 08:45] LABS: INR 4.9 (0.9-1.1)
[2016-06-11 09:00] LABS: ANISOCYTOSIS PRESENT; COMPLETE YES; GIANT PLATELETS 1+; HYPOCHROMIA PRESENT
== END ==
LOC: C.LABCC 07:49 → EDSTATUS 06-25 10:50
PROVIDERS: ATTEND Internal Medicine
DX: I48.91 Unspecified atrial fibrillation (principal)

== ENCOUNTER → 2016-06-17 | Outpatient (CLI) | payer OTHER ==
[2016-06-17 08:34] LABS: INR 1.9 (0.9-1.1); PROTHROMBIN TIME (PATIENT) 21.2 SECONDS (9.0-12.0)
== END ==
LOC: C.LABCC 07:52 → EDSTATUS 06-25 10:57
PROVIDERS: ATTEND Internal Medicine
DX: I48.91 Unspecified atrial fibrillation (principal)

== ENCOUNTER → 2016-06-20 | Outpatient (CLI) | payer OTHER ==
[2016-06-20 19:30] LABS: URINE APPEARANCE TURBID (CLEAR); URINE BILIRUBIN NEG (NEG); URINE COLOR YELLOW; URINE EPITHELIAL CELL AUTO >30 /lpf (0-5); URINE NITRITE POS (NEG); URINE PH >= 9.0 (4.5-7.5); URINE SPECIFIC GRAVITY 1.012 (1.000-1.030); UROBILINOGEN NEG (NEG)
[2016-06-20 19:43] LABS: MANUAL MICROSCOPIC REQUIRED? NO; REVIEW REQ? NO; SULFASALICYLIC ACID POS (NEG)
== END ==
LOC: EDSTATUS 10:28 → C.LABCC 14:30
PROVIDERS: ATTEND Internal Medicine
DX: R41.82 Altered mental status, unspecified (principal)

== ENCOUNTER → 2016-06-25 | Outpatient (CLI) | payer OTHER ==
[2016-06-25 08:47] LABS: INR 1.8 (0.9-1.1); PROTHROMBIN TIME (PATIENT) 19.6 SECONDS (9.0-12.0)
== END ==
LOC: C.LABCC 08:13
PROVIDERS: ATTEND Internal Medicine
DX: I48.91 Unspecified atrial fibrillation (principal)

== ENCOUNTER → 2016-07-01 | Outpatient (CLI) | payer OTHER ==
[2016-07-01 10:14] LABS: INR 1.4 (0.9-1.1); PROTHROMBIN TIME (PATIENT) 15.4 SECONDS (9.0-12.0)
== END | disposition home or self-care (01) ==
LOC: C.LABCC 09:31
PROVIDERS: ATTEND Internal Medicine
DX: I48.91 Unspecified atrial fibrillation (principal)

== ENCOUNTER → 2016-07-09 | Outpatient (CLI) | payer OTHER ==
[~2016-07-09] MED LIST changes: +ALPR-411 PO; +AMIO200T4 PO; +ATOR10TA82 PO; -ATOR10TA88 PO; +CEPH500C PO; +CRANCAP4 PO; +DIPH1TAB87 PO; +LCTX PO; +MICO12CR; +WARF3TAB6 PO
[2016-07-09 09:10] LABS: INR 1.6 (0.9-1.1)
== END ==
LOC: C.LABCC 08:41
PROVIDERS: ATTEND Internal Medicine
DX: I48.91 Unspecified atrial fibrillation (principal)

== ENCOUNTER → 2016-07-17 | Outpatient (CLI) | payer OTHER ==
[2016-07-17 09:07] LABS: INR 1.3 (0.9-1.1); PROTHROMBIN TIME (PATIENT) 13.7 SECONDS (9.0-12.0)
== END ==
LOC: C.LABCC 07:50
PROVIDERS: ATTEND Internal Medicine
DX: I48.91 Unspecified atrial fibrillation (principal)

== ENCOUNTER → 2016-07-23 | Outpatient (CLI) | payer OTHER ==
[2016-07-23 08:34] LABS: INR 1.8 (0.9-1.1); PROTHROMBIN TIME (PATIENT) 20.2 SECONDS (9.0-12.0)
[2016-07-23 12:52] LABS: MEAN CORPUSCULAR HEMOGLOBIN 25.3 pg (25-34); MEAN CORPUSCULAR HGB CONC 29.4 g/dl (32-36); MEAN PLATELET VOLUME 9.6 fL (7.4-10.4); PLATELET COUNT 270 K/uL (130-400); RED BLOOD COUNT 4.07 M/uL (4.2-5.4); WHITE BLOOD COUNT 5.12 K/uL (4.8-10.8)
[2016-07-23 13:09] LABS: URINE APPEARANCE CLEAR (CLEAR); URINE BILIRUBIN NEG (NEG); URINE COLOR DK YELLOW; URINE EPITHELIAL CELL AUTO 20-30 /lpf (0-5); URINE NITRITE NEG (NEG); URINE PH 5.5 (4.5-7.5); URINE SPECIFIC GRAVITY 1.018 (1.000-1.030); UROBILINOGEN NEG (NEG)
[2016-07-23 13:10] LABS: MANUAL MICROSCOPIC REQUIRED? NO; REVIEW REQ? NO
[2016-07-23 13:18] LABS: BLOOD UREA NITROGEN 21 mg/dl (7-18); GLUCOSE 108 mg/dl (70-99)
[2016-07-23 13:19] LABS: ALB/GLOB RATIO 0.5 (0.9-2); ALKALINE PHOSPHATASE 61 U/L (45-117); ALT/SGPT 34 U/L (12-78); AST/SGOT 46 U/L (15-37); BUN/CREATININE RATIO 18.8 (10-20); CALCIUM 9.4 mg/dl (8.5-10.1); CARBON DIOXIDE 33 mmol/L (21-32); CHLORIDE 101 mmol/L (98-107); POTASSIUM 4.1 mmol/L (3.5-5.1); SODIUM 139 mmol/L (136-145)
== END ==
LOC: C.LABCC 08:06
PROVIDERS: ATTEND Internal Medicine
DX: I48.91 Unspecified atrial fibrillation (principal)

== ENCOUNTER → 2016-07-29 | Outpatient (CLI) | payer OTHER ==
[2016-07-29 10:12] LABS: INR 1.9 (0.9-1.1); PROTHROMBIN TIME (PATIENT) 20.5 SECONDS (9.0-12.0)
== END ==
LOC: C.LABCC 09:38
PROVIDERS: ATTEND Internal Medicine
DX: I48.91 Unspecified atrial fibrillation (principal)

== ENCOUNTER → 2016-08-13 | Outpatient (CLI) | payer OTHER ==
[2016-08-13 08:33] LABS: INR 1.7 (0.9-1.1); PROTHROMBIN TIME (PATIENT) 18.3 SECONDS (9.0-12.0)
== END | disposition home or self-care (01) ==
LOC: C.LABCC 08:03
PROVIDERS: ATTEND Internal Medicine
DX: I48.91 Unspecified atrial fibrillation (principal)

== ENCOUNTER → 2016-08-19 | Outpatient (CLI) | payer OTHER ==
[2016-08-19 10:15] LABS: INR 2.4 (0.9-1.1); PROTHROMBIN TIME (PATIENT) 27.2 SECONDS (9.0-12.0)
== END ==
LOC: C.LABCC 09:13
PROVIDERS: ATTEND Internal Medicine
DX: I48.91 Unspecified atrial fibrillation (principal)

== ENCOUNTER → 2016-09-13 | Outpatient (CLI) | payer OTHER ==
[2016-09-13 08:40] LABS: BASO % 0.5 %; BASO ABS # 0.03 K/uL (0-0.2); EOS % 4.5 %; HEMATOCRIT 34.2 % (37-47); LYMPH ABS # 1.39 K/uL (1.2-3.4); MEAN CELL VOLUME 83.8 fL (80-100); MEAN CORPUSCULAR HEMOGLOBIN 24.5 pg (25-34); MEAN CORPUSCULAR HGB CONC 29.2 g/dl (32-36); MEAN PLATELET VOLUME 9.3 fL (7.4-10.4); MONO % 16.2 %; NEUT % 53.8 %; PLATELET COUNT 271 K/uL (130-400); RED BLOOD COUNT 4.08 M/uL (4.2-5.4); WHITE BLOOD COUNT 5.57 K/uL (4.8-10.8)
[2016-09-13 08:48] LABS: ALT/SGPT 37 U/L (12-78); BLOOD UREA NITROGEN 54 mg/dl (7-18); BUN/CREATININE RATIO 33.4 (10-20); CARBON DIOXIDE 27 mmol/L (21-32); CHLORIDE 106 mmol/L (98-107); GLUCOSE 113 mg/dl (70-99); POTASSIUM 4.5 mmol/L (3.5-5.1); SODIUM 141 mmol/L (136-145)
[2016-09-13 09:08] LABS: CALCIUM 10.2 mg/dl (8.5-10.1)
[2016-09-13 09:15] LABS: ANISOCYTOSIS PRESENT; COMPLETE YES; POIKILOCYTOSIS PRESENT
[2016-09-13 09:35] LABS: ALB/GLOB RATIO 0.5 (0.9-2); ALKALINE PHOSPHATASE 67 U/L (45-117); AST/SGOT 36 U/L (15-37)
== END ==
LOC: C.LABCC 07:59
PROVIDERS: ATTEND Internal Medicine
DX: R63.5 Abnormal weight gain (principal)

== ENCOUNTER → 2016-09-19 | Outpatient (CLI) | payer OTHER ==
[2016-09-19 09:19] LABS: PROTHROMBIN TIME (PATIENT) 21.5 SECONDS (9.0-12.0)
== END ==
LOC: C.LABCC 08:07
PROVIDERS: ATTEND Internal Medicine
DX: I48.91 Unspecified atrial fibrillation (principal)

== ENCOUNTER → 2016-10-21 | Outpatient (CLI) | payer OTHER ==
[~2016-10-21] MED LIST changes: -ALPR-411 PO; -AMIO200T4 PO; -ATOR10TA82 PO; +ATOR10TA88 PO; -CEPH500C PO; -CRANCAP4 PO; -DIPH1TAB87 PO; -LCTX PO; -MICO12CR; -WARF3TAB6 PO
[2016-10-21 09:15] LABS: INR 3.1 (0.9-1.1); PROTHROMBIN TIME (PATIENT) 34.5 SECONDS (9.0-12.0)
== END ==
LOC: C.LABCC 08:06
PROVIDERS: ATTEND Internal Medicine
DX: I48.91 Unspecified atrial fibrillation (principal)

== ENCOUNTER → 2016-10-25 | Outpatient (CLI) | payer OTHER ==
[2016-10-25 08:47] LABS: INR 3.4 (0.9-1.1); PROTHROMBIN TIME (PATIENT) 38.4 SECONDS (9.0-12.0)
== END ==
LOC: C.LABCC 08:03
PROVIDERS: ATTEND Internal Medicine
DX: I48.91 Unspecified atrial fibrillation (principal)

== ENCOUNTER → 2016-10-29 | Outpatient (CLI) | payer OTHER ==
[2016-10-29 08:45] LABS: INR 2.7 (0.9-1.1); PROTHROMBIN TIME (PATIENT) 30.6 SECONDS (9.0-12.0)
== END ==
LOC: C.LABCC 08:01
PROVIDERS: ATTEND Internal Medicine
DX: I48.91 Unspecified atrial fibrillation (principal)

== ENCOUNTER → 2016-11-06 | Outpatient (CLI) | payer OTHER ==
[2016-11-06 08:41] LABS: INR 2.1 (0.9-1.1); PROTHROMBIN TIME (PATIENT) 23.7 SECONDS (9.0-12.0)
== END ==
LOC: C.LABCC 08:00
PROVIDERS: ATTEND Internal Medicine
DX: I48.91 Unspecified atrial fibrillation (principal)

== ENCOUNTER → 2016-11-21 | Outpatient (CLI) | payer OTHER ==
[2016-11-21 08:36] LABS: INR 2.6 (0.9-1.1); PROTHROMBIN TIME (PATIENT) 29.3 SECONDS (9.0-12.0)
== END | disposition home or self-care (01) ==
LOC: C.LABCC 07:58
PROVIDERS: ATTEND Internal Medicine
DX: I48.91 Unspecified atrial fibrillation (principal)

== ENCOUNTER → 2016-11-29 | Outpatient (CLI) | payer OTHER ==
[2016-11-29 09:02] LABS: ALKALINE PHOSPHATASE 82 U/L (45-117); ALT/SGPT 55 U/L (12-78); AST/SGOT 57 U/L (15-37); THYROID STIMULATING HORMONE 0.933 uIu/ml (0.300-4.500)
== END ==
LOC: C.LABCC 08:20
PROVIDERS: ATTEND Internal Medicine
DX: E03.9 Hypothyroidism, unspecified (principal); N18.3 Chronic kidney disease, stage 3 (moderate)

== ENCOUNTER → 2016-12-05 | Outpatient (CLI) | payer OTHER ==
[2016-12-05 09:16] LABS: INR 2.2 (0.9-1.1); PROTHROMBIN TIME (PATIENT) 24.2 SECONDS (9.0-12.0)
== END ==
LOC: C.LABCC 08:43
PROVIDERS: ATTEND Internal Medicine
DX: I48.91 Unspecified atrial fibrillation (principal)

== ENCOUNTER → 2016-12-19 | Outpatient (CLI) | payer OTHER ==
[2016-12-19 09:11] LABS: INR 2.9 (0.9-1.1); PROTHROMBIN TIME (PATIENT) 32.3 SECONDS (9.0-12.0)
== END ==
LOC: C.LABCC 08:00
PROVIDERS: ATTEND Internal Medicine
DX: I48.91 Unspecified atrial fibrillation (principal)

== ENCOUNTER → 2017-01-02 | Outpatient (CLI) | payer OTHER ==
[2017-01-02 09:11] LABS: INR 2.9 (0.9-1.1); PROTHROMBIN TIME (PATIENT) 32.1 SECONDS (9.0-12.0)
== END ==
LOC: C.LABCC 08:43
PROVIDERS: ATTEND Internal Medicine
DX: I48.91 Unspecified atrial fibrillation (principal)

== ENCOUNTER → 2017-01-09 | Outpatient (CLI) | payer OTHER ==
[2017-01-09 08:46] LABS: INR 3.4 (0.9-1.1); PROTHROMBIN TIME (PATIENT) 37.7 SECONDS (9.0-12.0)
== END ==
LOC: C.LABCC 08:19
PROVIDERS: ATTEND Internal Medicine
DX: I48.91 Unspecified atrial fibrillation (principal)

== ENCOUNTER → 2017-01-13 | Outpatient (CLI) | payer OTHER ==
[2017-01-13 10:08] LABS: PROTHROMBIN TIME (PATIENT) 34.1 SECONDS (9.0-12.0)
== END ==
LOC: C.LABCC 09:13
PROVIDERS: ATTEND Internal Medicine
DX: I48.91 Unspecified atrial fibrillation (principal)

== ENCOUNTER → 2017-01-20 | Outpatient (CLI) | payer OTHER ==
[2017-01-20 09:20] LABS: INR 2.9 (0.9-1.1)
== END ==
LOC: C.LABCC 08:57
PROVIDERS: ATTEND Internal Medicine
DX: I48.91 Unspecified atrial fibrillation (principal)

== ENCOUNTER → 2017-01-27 | Outpatient (CLI) | payer OTHER ==
[~2017-01-27] MED LIST changes: +ATOR10TA82 PO; -ATOR10TA88 PO
[2017-01-27 09:12] LABS: INR 3.1 (0.9-1.1); PROTHROMBIN TIME (PATIENT) 34.4 SECONDS (9.0-12.0)
== END ==
LOC: C.LABCC 08:41
PROVIDERS: ATTEND Internal Medicine
DX: I48.91 Unspecified atrial fibrillation (principal)

== ENCOUNTER → 2017-02-03 | Outpatient (CLI) | payer OTHER ==
[~2017-02-03] MED LIST changes: +ALPR-411 PO; +AMIO200T4 PO; +CRANCAP4 PO; +DIPH1TAB87 PO; +MICO12CR; +WARF3TAB6 PO
[2017-02-03 08:36] LABS: INR 2.9 (0.9-1.1); PROTHROMBIN TIME (PATIENT) 32.7 SECONDS (9.0-12.0)
== END ==
LOC: C.LABCC 08:12
PROVIDERS: ATTEND Internal Medicine
DX: I48.91 Unspecified atrial fibrillation (principal)

== ENCOUNTER → 2017-02-17 | Outpatient (CLI) | payer OTHER ==
[~2017-02-17] MED LIST changes: -ALPR-411 PO; -AMIO200T4 PO; -CRANCAP4 PO; -DIPH1TAB87 PO; -MICO12CR; -WARF3TAB6 PO
[2017-02-17 09:20] LABS: INR 3.4 (0.9-1.1); PROTHROMBIN TIME (PATIENT) 38.8 SECONDS (9.0-12.0)
== END ==
LOC: C.LABCC 08:49
PROVIDERS: ATTEND Internal Medicine
DX: I48.91 Unspecified atrial fibrillation (principal)

== ENCOUNTER 2017-02-23 12:13 | Inpatient (IN) | payer OTHER ==
[~2017-02-23] VITALS: Ht 154.9 cm; Wt 103.2 kg
[2017-02-23] MEDS ORDERED: PIPERACILLIN/TAZOBACTAM 4.5 GM/100ML D5W IV STA (12:55)
[2017-02-23 13:10] LABS: BASO % 0.1 %; BASO ABS # 0.01 K/uL (0-0.2); COMPLETE YES; EOS % 0.1 %; IG% 0.2 %; LYMPH % 14.1 %; MEAN CELL VOLUME 91.5 fL (80-100); MEAN CORPUSCULAR HEMOGLOBIN 28.4 pg (25-34); MEAN PLATELET VOLUME 9.9 fL (7.4-10.4); MONO % 19.8 %; NEUT % 65.7 %; PLATELET COUNT 211 K/uL (130-400); RED BLOOD COUNT 3.28 M/uL (4.2-5.4); WHITE BLOOD COUNT 14.17 K/uL (4.8-10.8)
[2017-02-23 13:20] LABS: INR 3.5 (0.9-1.1); PARTIAL THROMBOPLASTIN RATIO 1.6; PROTHROMBIN TIME (PATIENT) 39.6 SECONDS (9.0-12.0)
--- NOTE | 2017-02-23 13:24 | DIAGNOSTIC IMAGING REPORT ---
CHEST ONE VIEW PORTABLE CLINICAL HISTORY: Sepsis COMPARISON STUDY: 05/05/2016 FINDINGS: There are postsurgical changes of a midline sternotomy. The heart remains enlarged. There is persistent mild be spinal widening. There is diffuse elevation of the interstitium similar to the prior study. The findings likely represent mild pulmonary vascular congestion. Underlying interstitial lung disease could appear similar. There is no lobar consolidation[ IMPRESSION: 1. Cardiomegaly 2. Stable elevation of the interstitium. While likely secondary to pulmonary vascular congestion, underlying interstitial lung disease could appear similar Electronically signed by: Lincoln Hilario M.D. 02/23/2017 1:23 PM Dictated Date/Time: 02/23/2017 1:22 PM
[2017-02-23 13:27] LABS: BUN/CREATININE RATIO 26.5 (10-20); CALCIUM 9.3 mg/dl (8.5-10.1); CREATININE 1.5 mg/dl (0.60-1.20)
[2017-02-23 13:30] LABS: ALB/GLOB RATIO 0.6 (0.9-2)
[2017-02-23] MEDS ORDERED: SODIUM CHLORIDE 0.9% 1000ML 250 ML IV STA (13:55)
--- NOTE | 2017-02-23 14:24 | DIAGNOSTIC IMAGING REPORT ---
CT HEAD WITHOUT CONTRAST (CT) CLINICAL HISTORY: Altered level of consciousness. Lethargy. Hypotension. COMPARISON STUDY: 05/01/2016 TECHNIQUE: Axial CT of the brain is performed from the vertex to the skull base. IV contrast was not administered for this examination. A dose lowering technique was utilized adhering to the principles of ALARA. CT DOSE: 601.98 mGy.cm FINDINGS: No intra or extra-axial mass lesions are visualized. There is no CT evidence of acute cortical infarction. There is no evidence of midline shift. There is no acute hemorrhage. No calvarial fractures are visualized. There are patchy white matter hypodensities likely on a small vessel basis. There is no evidence of pathologic ventricular dilatation. There is no evidence of acute sinusitis. There is a persistent left mastoid effusion. IMPRESSION: No acute intracranial findings Electronically signed by: Lincoln Hilario M.D. 02/23/2017 2:23 PM Dictated Date/Time: 02/23/2017 2:21 PM
[2017-02-23] MEDS ORDERED: DIPH1TAB87 PO (14:59)
[2017-02-23] MEDS ORDERED: CRANCAP4 PO (14:59)
[2017-02-23] MEDS ORDERED: MICO12CR (14:59)
[2017-02-23] MEDS ORDERED: WARF3TAB6 PO (14:59)
[2017-02-23] MEDS ORDERED: AMIO200T4 PO (14:59)
[2017-02-23] MEDS ORDERED: ALPR-411 PO (14:59)
[2017-02-23] MEDS ORDERED: ONDANSETRON INJ 2 MG/ML 2 ML VIAL IV PRN (15:00)
[2017-02-23] MEDS ORDERED: ENOXAPARIN 40 MG/0.4 ML SYR SC SCH (15:00)
[2017-02-23] MEDS ORDERED: ACETAMINOPHEN 325 MG TAB PO PRN (15:00)
[2017-02-23] MEDS ORDERED: POLYETHYLENE (MIRALAX) 17 GM PACK PO PRN (15:00)
[2017-02-23] MEDS ORDERED: SODIUM CHLORIDE 0.9% 500ML 500 ML IV SCH (15:30)
--- NOTE | 2017-02-23 15:37 | EMERGENCY ROOM VISIT NOTE ---
History Report prepared by Lynn: Will Durbin Under the Supervision of: Dr. Kedar Benson M.D. First contact with patient: 12:38 Chief Complaint: HYPOTENSION Stated Complaint: LETHARGIC/HYPOTENSION History of Present Illness The patient is a 81 year old female who presents to the Emergency Room with complaints of constant lethargy that started last night. The patient is accompanied by her daughter who states that [facility] called the her last night due to the patient's low oxygen and blood pressure. Her daughter states that the patient became unresponsive this morning and had to wear oxygen, which she usually does not wear. The patient's daughter states that the patient is currently confused and does not know where she is. She states that whenever the patient has an infection, the patient becomes confused. She reports that the patient is less confused here at the ED than she was earlier today. Her daughter admits that the patient has a history of Atrial fibrillation, stroke, NV, quadruple bypass, and chronic leg weakness. She denies cough, illness, infection, urinary symptoms, shortness of breath, chest pain, any recent falls, abdominal pain, leg pain or swelling, hematochezia, and melena. Source of History: patient, family Onset: last night Position: other (global) Quality: other (global) Timing: constant Modifying Factors (Relieving): oxygen Associated Symptoms: No cough, No chest pain, No SOB, No abdominal pain, No melena, No hematochezia, No urinary symptoms Review of Systems See HPI for pertinent positives & negatives. A total of 10 systems reviewed and were otherwise negative. Past Medical & Surgical Medical Problems: (1) CHF (congestive heart failure) (2) CKD (chronic kidney disease), stage III (3) Coronary artery disease (4) Degenerative joint disease (5) Diverticular disease of colon (6) Dyslipidemia (7) Essential tremor (8) GERD (gastroesophageal reflux disease) (9) History of transient ischemic attack (10) Hypertension (11) Hypotension (12) Hypoxia (13) Osteoporosis (14) Recurrent herpes simplex (15) SIRS (systemic inflammatory response syndrome) (16) Spinal stenosis of lumbar region Surgical Problems: (1) Status post coronary artery bypass grafting Old medical records were reviewed. Nurse's notes were reviewed and I agree with. Family History Hypertension Social History Smoking Status: Never Smoker Alcohol Use: none Drug Use: none Marital Status: single Housing Status: prison Occupation Status: retired Current/Historical Medications Scheduled Alprazolam (Xanax), 0.5 MG PO BID Amiodarone Hcl (Cordarone), 200 MG PO DAILY Aspirin (Aspirin Chewable), 81 MG PO QAM Atorvastatin (Lipitor), 10 MG PO DAILY Cholecalciferol (Vitamin D), 1 TAB PO QAM Cranberry-Vitamin C-Vitamin E (Cranberry Plus Vitamin C 4200-20-3 mg-Unit), 1 TAB PO DAILY Docusate Sodium (Docusate Sodium), 2 CAP PO HS Furosemide (Lasix), 40 MG PO QAM Gabapentin (Gabapentin), 300 MG PO Q8 Guaifenesin Ext Rel (Mucinex Ext Rel), 1,200 MG PO Q12 Ipratropium [place] (Ipratropium [place]), 0.5 MG INH Q6H Isosorbide Mononitrate Ext Rel (Imdur Ext Rel), 30 MG PO QAM Levothyroxine Sodium (Synthroid), 137 MCG PO DAILY Metoprolol Tartrate (Lopressor), 50 MG PO BID Pantoprazole (Protonix), 40 MG PO DAILY Polyethylene Glycol-Propylene (Systane), 1 DROPS OPB DAILY Potassium Chloride (Micro-K Ext Rel), 10 MEQ PO DAILY Ranitidine Hcl (Zantac), 150 MG PO BID Valacyclovir Hcl (Valtrex), 1 GM PO QAM Warfarin Sod (Jantoven), 3 MG PO DAILY Scheduled PRN Acetaminophen (Tylenol), 650 MG PO BID PRN for Pain or Fever Diphenhydramine Hcl (Benadryl Allergy), 25 MG PO Q8 PRN for Itching Miscellaneous Medications Miconazole Nitrate (Topical) (Antifungal) Allergies Coded Allergies: Valproic Acid and Related (Verified Allergy, Mild, Depakote,face flushing. , 02/23/17) Cortisone (Verified Adverse Reaction, Mild, Cortisone shot, face flushing. , 02/23/17) Physical Exam Vital Signs Date Time Temp Pulse Resp B/P (MAP) Pulse Ox O2 Delivery O2 Flow Rate FiO2 02/23/17 15:30 98/48 02/23/17 15:18 99/49 02/23/17 15:09 72 20 88/47 95 2.0 02/23/17 13:49 72 16 88/44 95 Nasal Cannula 2.0 02/23/17 12:55 72 02/23/17 12:15 36.7 75 20 108/51 95 Nasal Cannula 3.0 02/23/17 12:15 83 Room Air Physical Exam General: Chronically-ill appearing older female in no acute distress. Wearing supplemental oxygen with O2 saturation in the mid 90s. HEENT: Normal cephalic atraumatic. Pupils are equal round and reactive to light. Extraocular movements are intact. Oropharynx is pink with moist mucous membranes. No swelling of the mouth lips or tongue. Neck: Supple with a midline trachea. No meningeal signs or stiffness, no JVD or bruits. No Stridor. Chest: Clear to auscultation bilaterally. No wheezes or rhonchi. No increased work of breathing. Heart: regular rate and rhythm. Abdomen: Soft nontender, nondistended without rebound guarding or rigidity. Extremities: No cyanosis or clubbing. Trace to 1+ lower extremity edema. No calf tenderness or assymetry. Spine/Back. Non tender to palpation. No CVA tenderness Skin: Good turgor without rashes. Neurologic exam: Cranial nerves two through 12 are intact. Motor and sensation are intact and symmetrical throughout. Alert. Answers questions but has mild confusion. Disoriented to place and date. Medical Decision & Procedures ER Provider Diagnostic Interpretation: Radiology results as stated below per my review and radiologist interpretation: CHEST ONE VIEW PORTABLE CLINICAL HISTORY: Sepsis COMPARISON STUDY: 05/05/2016 FINDINGS: There are postsurgical changes of a midline sternotomy. The heart remains enlarged. There is persistent mild be spinal widening. There is diffuse elevation of the interstitium similar to the prior study. The findings likely represent mild pulmonary vascular congestion. Underlying interstitial lung disease could appear similar. There is no lobar consolidation[ IMPRESSION: 1. Cardiomegaly 2. Stable elevation of the interstitium. While likely secondary to pulmonary vascular congestion, underlying interstitial lung disease could appear similar Electronically signed by: Lincoln Hilario M.D. 02/23/2017 1:23 PM Dictated Date/Time: 02/23/2017 1:[address] HEAD WITHOUT CONTRAST (CT) CLINICAL HISTORY: Altered level of consciousness. Lethargy. Hypotension. COMPARISON STUDY: 05/01/2016 TECHNIQUE: Axial CT of the brain is performed from the vertex to the skull base. IV contrast was not administered for this examination. A dose lowering technique was utilized adhering to the principles of ALARA. CT DOSE: 601.98 mGy.cm FINDINGS: No intra or extra-axial mass lesions are visualized. There is no CT evidence of acute cortical infarction. There is no evidence of midline shift. There is no acute hemorrhage. No calvarial fractures are visualized. There are patchy white matter hypodensities likely on a small vessel basis. There is no evidence of pathologic ventricular dilatation. There is no evidence of acute sinusitis. There is a persistent left mastoid effusion. IMPRESSION: No acute intracranial findings Electronically signed by: Lincoln Hilario M.D. 02/23/2017 2:23 PM Dictated Date/Time: 02/23/2017 2:21 PM Laboratory Results 02/23/17 12:40 Red Blood Count 3.28, Mean Corpuscular Volume 91.5, Mean Corpuscular Hemoglobin 28.4, Mean Corpuscular Hemoglobin Concent 31.0, Mean Platelet Volume 9.9, Neutrophils (%) (Auto) 65.7, Lymphocytes (%) (Auto) 14.1, Monocytes (%) (Auto) 19.8, Eosinophils (%) (Auto) 0.1, Basophils (%) (Auto) 0.1, Neutrophils # (Auto ) 9.31, Lymphocytes # (Auto) 2.00, Monocytes # (Auto) 2.80, Eosinophils # (Auto ) 0.02, Basophils # (Auto) 0.01 02/23/17 12:40 Test 02/23/17 12:40 02/23/17 13:40 02/23/17 15:31 White Blood Count 14.17 K/uL (4.8-10.8) Red Blood Count 3.28 M/uL (4.2-5.4) Hemoglobin 9.3 g/dL (12.0-16.0) Hematocrit 30.0 % (37-47) Mean Corpuscular Volume 91.5 fL (80-100) Mean Corpuscular Hemoglobin 28.4 pg (25-34) Mean Corpuscular Hemoglobin Concent 31.0 g/dl (32-36) Platelet Count 211 K/uL (130-400) Mean Platelet Volume 9.9 fL (7.4-10.4) Neutrophils (%) (Auto) 65.7 % Lymphocytes (%) (Auto) 14.1 % Monocytes (%) (Auto) 19.8 % Eosinophils (%) (Auto) 0.1 % Basophils (%) (Auto) 0.1 % Neutrophils # (Auto) 9.31 K/uL (1.4-6.5) Lymphocytes # (Auto) 2.00 K/uL (1.2-3.4) Monocytes # (Auto) 2.80 K/uL (0.11-0.59) Eosinophils # (Auto) 0.02 K/uL (0-0.5) Basophils # (Auto) 0.01 K/uL (0-0.2) RDW Standard Deviation 66.3 fL (36.4-46.3) RDW Coefficient of Variation 19.9 % (11.5-14.5) Immature Granulocyte % (Auto) 0.2 % Immature Granulocyte # (Auto) 0.03 K/uL (0.00-0.02) Prothrombin Time 39.6 SECONDS (9.0-12.0) Prothromb Time International Ratio 3.5 (0.9-1.1) Activated Partial Thromboplast Time 42.7 SECONDS (21.0-31.0) Partial Thromboplastin Ratio 1.6 Anion Gap 8.0 mmol/L (3-11) Est Creatinine Clear Calc Drug Dose 34.4 ml/min Estimated GFR () 38.0 Estimated GFR (Non- 32.8 BUN/Creatinine Ratio 26.5 (10-20) Calcium Level 9.3 mg/dl (8.5-10.1) Total Bilirubin 0.5 mg/dl (0.2-1) Aspartate Amino Transf (AST/SGOT) 30 U/L (15-37) Alanine Aminotransferase (ALT/SGPT) 32 U/L (12-78) Alkaline Phosphatase 67 U/L (45-117) Troponin I 0.036 ng/ml (0-0.045) Total Protein 7.8 gm/dl (6.4-8.2) Albumin 2.8 gm/dl (3.4-5.0) Globulin 5.0 gm/dl (2.5-4.0) Albumin/Globulin Ratio 0.6 (0.9-2) Bedside Lactic Acid Venous 1.23 mmol/L (0.90-1.70) Laboratory studies as stated above per my review. Medications Administered Medications (Trade) Dose Ordered Sig/Koko Route Start Time Stop Time Status Last Admin Dose Admin Piperacillin Sod/ Tazobactam Sod (Zosyn Iv) 4.5 gm NOW STAT IV 02/23/17 12:55 02/23/17 12:56 DC 02/23/17 13:48 4.5 GM Sodium Chloride 250 ml @ 999 mls/hr Q16M STAT IV 02/23/17 13:55 02/23/17 14:10 DC 02/23/17 14:00 999 MLS/HR ECG Indication: altered mental status Rate (beats per minute): 72 Rhythm: normal sinus Findings: nonspecific-ST abn, no ectopy Comparison ECG Date: 05/07/16 Change: Non specific ST abnormality is present, P waves are difficult to discern. ED Course 1243: Past medical records reviewed. The patient was evaluated in room B02, and a complete history and physical examination were performed. 1255: Ordered Zosyn 4.5 gm IV. 1340: I reevaluated the patient and she is resting. Her antibiotics were started. 1355: Ordered Sodium Chloride 250 ml @ 999 mls/hr IV. 1357: I reevaluated the patient and she is being given more fluid. Her last blood pressure was 88 systolically. 1408: I discussed the patient's case with Dr. Ross, [facility] Hospitalist. He understands the patient's condition and agrees to accept the patient. The patient will be further evaluated. Medical Decision Differentials include, but are not limited to; sepsis, dehydration, CHF, medication side affect, and electrolyte or metabolic abnormality. This patient comes in as described above. She was placed room B2. She was hypotensive and altered mental status in the field and she seemed to be doing much better now. Upon arrival she was normotensive and awake and alert . She does have some disorientation compared to baseline according to her daughter but she answers most questions appropriately. She denies any complaints of pain or shortness of breath. She is on subliminal oxygen. Extensive workup was obtained. CAT scan of her head was unremarkable. Chest x-ray shows some cardiomegaly but no definite pneumonia or white count is elevated 15 however lactic acid is normal. She has baseline renal insufficiency but no other acute findings which would explain her symptoms. Urinalysis is pending. EKG shows a sinus rhythm a could be more of a junctional by I think is actually sinus. She has had no chest pain. She was given Zosyn 4.5 g IV for possible infection/ sepsis. This could also be related to her heart she is a DO NOT RESUSCITATE. I talked to her family member at length about this and she confirm this. While she was here blood pressure did drop into the 80s and was given additional fluid and this helped. She has been a symptomatically otherwise. I did consult the [facility] hospitalist this on ER will admit her for these measures. Medication Reconcilliation Current Medication List: was personally reviewed by me Blood Pressure Screening Patient's blood pressure: Normal blood pressure Consults Time Called: 1408 Consulting Physician: Dr. Ross, [facility] Hospitalist Returned Call: 1408 I discussed the patient's case with Dr. Ross, [facility] Hospitalist. He understands the patient's condition and agrees to accept the patient. The patient will be further evaluated. Impression Primary Impression: Hypotension Additional Impressions: Altered mental status Sepsis Critical Care I have personally spent greater than 30 minutes of critical care time in the direct management of this patient. This includes bedside care, interpretation of diagnostic studies, and testing, discussion with consultants, patient, and family members, and other required patient management activities. This 30 minutes is in excess of all separately billable procedures. Scribe Attestation The scribe's documentation has been prepared under my direction and personally reviewed by me in its entirety. I confirm that the note above accurately reflects all work, treatment, procedures, and medical decision making performed by me. Departure Information Dispostion Being Evaluated By Hospitalist Referrals SalineMarlen (PCP) Patient Instructions My [facility] Health Problem Qualifiers
--- NOTE | 2017-02-23 15:45 | History and Physical ---
History & Physical Date & Time of Service: Feb 23, 2017 at 14:57 Chief Complaint: Lethargic/Hypotension Primary Care Physician: Marlen Thomas History of Present Illness Source: patient, family This is a 81 yo F with PMHx of chronic diastolic CHF, Spinal stenosis with lumbar DJD causing paraplegia where pt is wheelchair bound, HLD, HTN, ROCKY, Morbid obesity, CAD s/p CABG, hx of TIA, GERD, hypothyroidism, neuropathy, hypernatremia, hypoalbuminemia, herpes simplex, CKD stage III, anxiety who presents from [facility] nursing facility after she was noted to have an altered mental status where she was initially unresponsive, hypotension with systolic in the 70s, and hypoxic at 83 % on RA this morning. The patient is able to provide some history although mentation seems to be somewhat altered. She was placed on 3 L O2 and had O2 sats of 94%. She reports not wearing O2 typically. Pt was transferred by EMS. Her niece is present at bedside and reports she would normally is AOO x 3, and seems to be unable to provide details this morning. The patient denies any fever, chills, sweats, chest pain, but does report a chronic dyspnea on exertion. She denies any acute dyspnea today that she can remember. Pt admits to an abdominal pain, but neice also mentions that this has been ongoing for some time. During exam she does have pain in the LLQ with palapation. She denies any n/v/c, she admits to loose stools x 2 today. Pt notes she has some feeling in her lower extremities although they are numb bilaterally. She is able to wiggle her toes. Pt is primarily wheelchair bound and requires assistance to transfer at baseline. Past Medical/Surgical History Medical Problems: (1) CKD (chronic kidney disease), stage III Status: Chronic (2) Coronary artery disease Status: Chronic (3) Degenerative joint disease Status: Chronic (4) Diverticular disease of colon Status: Chronic (5) Dyslipidemia Status: Chronic (6) Essential tremor Status: Chronic (7) GERD (gastroesophageal reflux disease) Status: Chronic (8) History of transient ischemic attack Status: Chronic (9) Hypertension Status: Chronic (10) Osteoporosis Status: Chronic (11) Recurrent herpes simplex Status: Chronic (12) Spinal stenosis of lumbar region Status: Chronic Surgical Problems: (1) Status post coronary artery bypass grafting Permanent Comment: x 5 1997 Status: Chronic Family History Hypertension Social History Smoking Status: Never Smoker Smokeless Tobacco Use: No Alcohol Use: none Drug Use: none Marital Status: single Housing status: residential Occupational Status: retired Immunizations History of Influenza Vaccine: Unknown Influenza Vaccine Date: Jan 09, 2013 History of Tetanus Vaccine?: Unknown History of Pneumococcal: Unknown History of Hepatitis B Vaccine: Unknown Multi-Drug Resistant Organisms History of MDRO: No Allergies Coded Allergies: Valproic Acid and Related (Verified Allergy, Mild, Depakote,face flushing. , 02/23/17) Cortisone (Verified Adverse Reaction, Mild, Cortisone shot, face flushing. , 02/23/17) Home Medications Scheduled Alprazolam (Xanax), 0.5 MG PO BID Amiodarone Hcl (Cordarone), 200 MG PO DAILY Aspirin (Aspirin Chewable), 81 MG PO QAM Atorvastatin (Lipitor), 10 MG PO DAILY Cholecalciferol (Vitamin D), 1 TAB PO QAM Cranberry-Vitamin C-Vitamin E (Cranberry Plus Vitamin C 4200-20-3 mg-Unit), 1 TAB PO DAILY Docusate Sodium (Docusate Sodium), 2 CAP PO HS Furosemide (Lasix), 40 MG PO QAM Gabapentin (Gabapentin), 300 MG PO Q8 Guaifenesin Ext Rel (Mucinex Ext Rel), 1,200 MG PO Q12 Ipratropium [place] (Ipratropium [place]), 0.5 MG INH Q6H Isosorbide Mononitrate Ext Rel (Imdur Ext Rel), 30 MG PO QAM Levothyroxine Sodium (Synthroid), 137 MCG PO DAILY Metoprolol Tartrate (Lopressor), 50 MG PO BID Pantoprazole (Protonix), 40 MG PO DAILY Polyethylene Glycol-Propylene (Systane), 1 DROPS OPB DAILY Potassium Chloride (Micro-K Ext Rel), 10 MEQ PO DAILY Ranitidine Hcl (Zantac), 150 MG PO BID Valacyclovir Hcl (Valtrex), 1 GM PO QAM Warfarin Sod (Jantoven), 3 MG PO DAILY Scheduled PRN Acetaminophen (Tylenol), 650 MG PO BID PRN for Pain or Fever Diphenhydramine Hcl (Benadryl Allergy), 25 MG PO Q8 PRN for Itching Miscellaneous Medications Miconazole Nitrate (Topical) (Antifungal) Review of Systems Constitutional: No fever, No chills, No sweats Eyes: No worsening of vision, No redness ENT: No sore throat, No tinnitus, No trouble swallowing Respiratory: No shortness of breath, No dyspnea on exertion Cardiovascular: No chest pain, No edema, No claudication Abdomen: + diarrhea, No pain, No nausea, No vomiting, No constipation Musculoskeletal: + swelling (hands and feet), No joint pain Neurologic: + weakness (BLE), + numbness/tingling, + balance problems ( wheelchair bound) Psychiatric: + anxiety, No depression symptoms Endocrine: No fatigue Integumentary: No rash, No itch Physical Exam Vital Signs Date Time Temp Pulse Resp B/P (MAP) Pulse Ox O2 Delivery O2 Flow Rate FiO2 02/23/17 13:49 72 16 88/44 95 Nasal Cannula 2.0 02/23/17 12:55 72 02/23/17 12:15 36.7 75 20 108/51 95 Nasal Cannula 3.0 02/23/17 12:15 83 Room Air General Appearance: WD/WN, no apparent distress, + pertinent finding (morbidly obese, flat affect with poor eye contact, ) Head: normocephalic, atraumatic, + pertinent finding (+alopecia with eczema like rash over scalp) Eyes: PERRL, EOMI ENT: hearing grossly normal, + pertinent finding Neck: supple, no JVD Respiratory/Chest: no respiratory distress, + pertinent finding (on 1 L via NC , diminished breath sounds at bases with +faint crackles) Cardiovascular: regular rate, rhythm, normal peripheral pulses, + systolic murmur Abdomen/GI: normal bowel sounds, + tenderness (with palpation in the LLQ) Back: normal inspection Extremities/Musculoskelatal: no calf tenderness, + pedal edema (1+ nonpitting) , + pertinent finding (Wiggles toes on command, cannot bend knees upon exam, diminshed sensation to light touch in BLE.) Neurologic/Psych: alert, + disoriented (unable to determine month or year, cannot name months from March backwards, names president correctly, unable to describe how she got to the hospital.) Skin: normal color, warm/dry Diagnostics Laboratory Results Results Past 24 Hours Test 02/23/17 12:40 02/23/17 13:40 Range/Units White Blood Count 14.17 4.8-10.8 K/uL Red Blood Count 3.28 4.2-5.4 M/uL Hemoglobin 9.3 12.0-16.0 g/dL Hematocrit 30.0 37-47 % Mean Corpuscular Volume 91.5 80-100 fL Mean Corpuscular Hemoglobin 28.4 25-34 pg Mean Corpuscular Hemoglobin Concent 31.0 32-36 g/dl Platelet Count 211 130-400 K/uL Mean Platelet Volume 9.9 7.4-10.4 fL Neutrophils (%) (Auto) 65.7 % Lymphocytes (%) (Auto) 14.1 % Monocytes (%) (Auto) 19.8 % Eosinophils (%) (Auto) 0.1 % Basophils (%) (Auto) 0.1 % Neutrophils # (Auto) 9.31 1.4-6.5 K/uL Lymphocytes # (Auto) 2.00 1.2-3.4 K/uL Monocytes # (Auto) 2.80 0.11-0.59 K/uL Eosinophils # (Auto) 0.02 0-0.5 K/uL Basophils # (Auto) 0.01 0-0.2 K/uL RDW Standard Deviation 66.3 36.4-46.3 fL RDW Coefficient of Variation 19.9 11.5-14.5 % Immature Granulocyte % (Auto) 0.2 % Immature Granulocyte # (Auto) 0.03 0.00-0.02 K/uL Prothrombin Time 39.6 9.0-12.0 SECONDS Prothromb Time International Ratio 3.5 0.9-1.1 Activated Partial Thromboplast Time 42.7 21.0-31.0 SECONDS Partial Thromboplastin Ratio 1.6 Sodium Level 139 136-145 mmol/L Potassium Level 5.0 3.5-5.1 mmol/L Chloride Level 104 98-107 mmol/L Carbon Dioxide Level 28 21-32 mmol/L Anion Gap 8.0 3-11 mmol/L Blood Urea Nitrogen 40 7-18 mg/dl Creatinine 1.50 0.60-1.20 mg/dl Est Creatinine Clear Calc Drug Dose 34.4 ml/min Estimated GFR () 38.0 Estimated GFR (Non- 32.8 BUN/Creatinine Ratio 26.5 10-20 Random Glucose 134 70-99 mg/dl Calcium Level 9.3 8.5-10.1 mg/dl Total Bilirubin 0.5 0.2-1 mg/dl Aspartate Amino Transf (AST/SGOT) 30 15-37 U/L Alanine Aminotransferase (ALT/SGPT) 32 12-78 U/L Alkaline Phosphatase 67 45-117 U/L Troponin I 0.036 0-0.045 ng/ml Total Protein 7.8 6.4-8.2 gm/dl Albumin 2.8 3.4-5.0 gm/dl Globulin 5.0 2.5-4.0 gm/dl Albumin/Globulin Ratio 0.6 0.9-2 Bedside Lactic Acid Venous 1.23 0.90-1.70 mmol/L Microbiology Results 02/23/17 Blood Culture, Received Pending 02/23/17 Blood Culture, Received Pending Diagnostic Radiology CT HEAD WITHOUT CONTRAST (CT) CLINICAL HISTORY: Altered level of consciousness. Lethargy. Hypotension. COMPARISON STUDY: 05/01/2016 TECHNIQUE: Axial CT of the brain is performed from the vertex to the skull base. IV contrast was not administered for this examination. A dose lowering technique was utilized adhering to the principles of ALARA. CT DOSE: 601.98 mGy.cm FINDINGS: No intra or extra-axial mass lesions are visualized. There is no CT evidence of acute cortical infarction. There is no evidence of midline shift. There is no acute hemorrhage. No calvarial fractures are visualized. There are patchy white matter hypodensities likely on a small vessel basis. There is no evidence of pathologic ventricular dilatation. There is no evidence of acute sinusitis. There is a persistent left mastoid effusion. IMPRESSION: No acute intracranial findings Electronically signed by: Lincoln Hilario M.D. 02/23/2017 2:23 PM Dictated Date/Time: 02/23/2017 2:21 PM The status of this report is Signed. CHEST ONE VIEW PORTABLE CLINICAL HISTORY: Sepsis COMPARISON STUDY: 05/05/2016 FINDINGS: There are postsurgical changes of a midline sternotomy. The heart remains enlarged. There is persistent mild be spinal widening. There is diffuse elevation of the interstitium similar to the prior study. The findings likely represent mild pulmonary vascular congestion. Underlying interstitial lung disease could appear similar. There is no lobar consolidation[ IMPRESSION: 1. Cardiomegaly 2. Stable elevation of the interstitium. While likely secondary to pulmonary vascular congestion, underlying interstitial lung disease could appear similar Electronically signed by: Lincoln Hilario M.D. 02/23/2017 1:23 PM Dictated Date/Time: 02/23/2017 1:22 PM The status of this report is Signed. EKG EKG reviewed showing accelerated junctional rhythm, narrow complex. No signs of ischemia or infarct. VR = 72 QRS interval 74 Prolonged QT 428/468 Impression Assessment and Plan This is a 81 yo F with PMHx of chronic diastolic CHF, Spinal stenosis with lumbar DJD causing paraplegia where pt is wheelchair bound, HLD, HTN, ROCKY, Morbid obesity, CAD s/p CABG, hx of TIA, GERD, hypothyroidism, neuropathy, hypernatremia, hypoalbuminemia, herpes simplex, CKD stage III, anxiety who presents from [facility] after she was noted to have an altered mental status where she was initially unresponsive, hypotension with systolic in the 70s, and hypoxic at 83 % on RA this morning. SIRS criteria - Admit to tele - Initially hypotensive but pt received lopressor this morning. Pt was administered NSS enroute to hospital. In ER pt recieved a total of 1 L fluid. BP has improved at this time so will order slow maintenance fluids with diastolic CHF. - Unknown etiology at this point but pt does not appear to be septic. POC lactic acid was negative, rechecking lactic now. - Hypoxia improved with supplemental O2, lung sounds are diminished at bases with faint crackles. - CXR reviewed showing pulmonary edema but pt is nonambulatory - does not appear to be consistent with pna. Consider repeat CXR 2 view in morning. - WBC minimally elevated at 14.7 K - continue on zosyn - Will check KUB of abdomen to check for stool impaction - pt reports diarrhea but also not mentating well - Follow BCx x 2 - UA ordered with straight cath but has not yet been collected, follow results and UCx - Per niece pt is normally AAOx3 Chronic diastolic CHF - Last echo obtained last April with preserved EF, will repeat - Administered a total of 1L NSS in the ER - BP improved to 99/74 - will place on maintenance fluids at 75 mL/hr for 12 hours. - Continue amiodarone 200 mg daily - Cont aspirin 81 mg daily - hold lasix 40 mg PO tabs HTN - HOLD Imdur ER 30 mg daily and metoprolol tartrate 37.5 mg BID HLD - Continue statin therapy Paroxysmal Afib - Cont amiodarone therapy for rate control. - Continue on coumadin 3 mg all days of the week except Mondays, on Friday administer 4 mg. - Will hold dose tonight as INR = 3.5 upon admission - Follow INR Spinal Stenosis/ DJD / Lumbar neuropathy Acquired paraplegia secondary to lumbar spinal stenosis - Pt is wheelchair bound but does have some ability to wiggle toes and has dulled sensation to light touch. - Cont gabapentin 300 mg TID ROCKY - Does not wear supplemental O2 at baseline - will order CPAP Hypothyroidism - Cont synthroid 37.5 mcg daily GERD - Cont protonix 40 mg daily and ranitidine 150 mg BID Herpes Simplex - Continue galacyclovir 1 gm PO daily Vit D Deficiency - Continue supplementation DVT ppx: Teds, scds, lovenox subq CODE STATUS: DNR Disposition: From [facility], admit to tele PA Physician Supervision Note: I interviewed and examined the patient. Discussed with Melissa Dunbar PAC and agree with findings and plan as documented in the note. Any exceptions or clarifications are listed here: None Patient transferred from [facility] facility with low blood pressure and encephalopathy. The patient did receive her blood pressure medicine this morning. The patient has a history of atrial fibrillation on rate controlling agents and amiodarone. The patient herself is awake and conversant during exam her only focal complaints are lower abdominal pain. Urinalysis is pending at the time of intake as well as an x-ray of her abdomen to evaluate for constipation. Reviewing her previous records shows a CT scan from 2013 with no comments of diverticulosis seen. patient is accompanied by a family Vital signs are reviewed and stable with exception of low blood pressure she did receive 1 L of crystalloid solution in the ER will continue with a low rate IV fluid of stairs Her heart is irregularly irregular lungs are clear with findings or crackles which clear with deep inspiration her abdomen is with hypoactive bowel sounds and she is just uncomfortable to lower quadrants and my exam mostly suprapubically Low blood pressure undetermined origin with patient many medications plan the patient will have her medicines withdrawn held or reduced she'll be hydrated with IV fluid evaluation for infectious sources such as urine source and also for constipation to be the origin of her abdominal pain reevaluate her blood pressures and they moves forward expect eventual return to [facility] residential Documented By: Adolfo Ross Level of Care Telemetry Advanced Directives Existing Advance Directive: Yes Existing Living Will: Yes Existing Power of Roll On Man: Yes Existing Health Care Proxy: Yes Resuscitation Status DO NOT RESUSCITATE VTE Prophylaxis VTE Risk Assessment Done? Y/N: Yes Risk Level: Low Given or contraindicated: Warfarin (Coumadin), T.E.D. Stockings, SCD's
[2017-02-23] MEDS ORDERED: WARFARIN SOD 3 MG TAB PO SCH (16:00)
[2017-02-23] MEDS ORDERED: PIPERACILL/TAZOBAC CONSULT ACTIVE PRN (16:00)
[2017-02-23 16:21] VITALS: BP 92/56; PULSE 67; TEMP 36.5; O2SAT 92; Ht 154.9 cm; Wt 103.2 kg
[2017-02-23 17:50] LABS: URINE APPEARANCE CLOUDY (CLEAR); URINE BILIRUBIN NEG (NEG); URINE COLOR YELLOW; URINE NITRITE POS (NEG); URINE SPECIFIC GRAVITY 1.018 (1.000-1.030); UROBILINOGEN NEG (NEG)
[2017-02-23 17:51] LABS: MANUAL MICROSCOPIC REQUIRED? NO; REVIEW REQ? YES
[2017-02-23 18:54] VITALS: BP 89/57; PULSE 57; TEMP 36.7; O2SAT 97
[2017-02-23 19:00] VITALS: PULSE 61; O2SAT 95
[2017-02-23] MEDS: IPRATROPIUM BROMIDE NEB SOLN 0.02% 2.5 ML VIAL INH SCH (19:02)
--- NOTE | 2017-02-23 19:08 | DIAGNOSTIC IMAGING REPORT ---
KUB HISTORY: Assess for constipation, diverticulitis, colitis COMPARISON: Abdomen and pelvis CT 05/01/2016. FINDINGS: Gas-filled mildly distended colon containing a small to moderate amount of stool. There are few borderline distended gas-filled loops of small bowel seen within the abdomen. Findings favor an ileus. No renal calculi. No ureteral calculi. Calcifications in the deep pelvis likely represent phleboliths. No pneumoperitoneum or pneumatosis. IMPRESSION: Mildly distended colon and a few borderline gas-filled loops of small bowel. Findings favor an ileus. Small to moderate amount of stool within the colon. Electronically signed by: Hiro Alexandra M.D. 02/23/2017 7:06 PM Dictated Date/Time: 02/23/2017 7:03 PM
[2017-02-23 19:22] VITALS: BP 111/58; PULSE 62; TEMP 36.4; O2SAT 96
[2017-02-23] MEDS: PIPERACILL/TAZOBAC IV 4.5 GM in DEXTROSE 5% 100ML 100 ML IV SCH (20:29)
[2017-02-23] MEDS: MICONAZOLE NITRATE 2% CR 30 GM TUBE EXT SCH (20:30)
[2017-02-23] MEDS: RANITIDINE HCL 150 MG TAB PO SCH (20:31)
[2017-02-23] MEDS: GABAPENTIN 300 MG CAP PO SCH (20:31)
[2017-02-23] MEDS: DOCUSATE SODIUM 100 MG CAP PO SCH (20:31)
[2017-02-23] MEDS: ALPRAZOLAM 0.5 MG TAB PO SCH (20:34)
[2017-02-24] VITALS (12 sets, daily range): BP systolic 94–152; BP diastolic 54–78; PULSE 59–85; TEMP 36.3–36.8; O2SAT 93–96
[2017-02-24] MEDS: IPRATROPIUM BROMIDE NEB SOLN 0.02% 2.5 ML VIAL INH SCH ×4 (01:25→19:44)
[2017-02-24] MEDS: PIPERACILL/TAZOBAC IV 4.5 GM in DEXTROSE 5% 100ML 100 ML IV SCH ×3 (04:07→20:40)
[2017-02-24] MEDS: LEVOTHYROXINE 137 MCG TAB PO SCH (06:17)
[2017-02-24] MEDS: GABAPENTIN 300 MG CAP PO SCH ×3 (06:17→22:14)
[2017-02-24 07:31] LABS: LYMPH % 27.7 %; MEAN CELL VOLUME 92.9 fL (80-100); MEAN CORPUSCULAR HEMOGLOBIN 28.2 pg (25-34); MEAN CORPUSCULAR HGB CONC 30.3 g/dl (32-36); MEAN PLATELET VOLUME 9.7 fL (7.4-10.4); NEUT % 55.4 %; PLATELET COUNT 157 K/uL (130-400); RED BLOOD COUNT 3.12 M/uL (4.2-5.4); WHITE BLOOD COUNT 6.28 K/uL (4.8-10.8)
[2017-02-24 07:32] LABS: BASO % 0.2 %; BASO ABS # 0.01 K/uL (0-0.2); EOS % 1.6 %; IG% 0.3 %; LYMPH ABS # 1.74 K/uL (1.2-3.4); MONO % 14.8 %
[2017-02-24 07:34] LABS: INR 2.6 (0.9-1.1); PROTHROMBIN TIME (PATIENT) 28.7 SECONDS (9.0-12.0)
[2017-02-24 08:04] LABS: BUN/CREATININE RATIO 29.2 (10-20); CALCIUM 9.2 mg/dl (8.5-10.1); CREATININE 1.55 mg/dl (0.60-1.20); POTASSIUM 4.8 mmol/L (3.5-5.1)
[2017-02-24 08:07] LABS: CHOLESTEROL/HDL RATIO 2.7
[2017-02-24 08:12] LABS: ANISOCYTOSIS PRESENT; COMPLETE YES; HYPERSEGMENTED POLYS 1+
[2017-02-24] MEDS: MICONAZOLE NITRATE 2% CR 30 GM TUBE EXT SCH ×2 (08:19→20:41)
[2017-02-24] MEDS: CHOLECALCIFEROL 1000 INTER.UNIT TAB PO SCH (08:20)
[2017-02-24] MEDS: PANTOprazole SOD 40 MG TAB PO SCH (08:20)
[2017-02-24] MEDS: RANITIDINE HCL 150 MG TAB PO SCH ×2 (08:20→20:42)
[2017-02-24] MEDS: ASPIRIN 81 MG CHEW PO SCH (08:20)
[2017-02-24] MEDS: ATORVASTATIN 10 MG TAB PO SCH (08:20)
[2017-02-24] MEDS: AMIODARONE 200 MG TAB PO SCH (08:20)
[2017-02-24] MEDS: ALPRAZOLAM 0.5 MG TAB PO SCH ×2 (08:25→20:46)
[2017-02-24] MEDS: ARTIFICIAL TEARS OP SOLN OPB SCH ×2 (08:25)
[2017-02-24] MEDS ORDERED: PNEUMOCOCCAL ADMINISTRATION CHARGE ONE (09:00)
[2017-02-24] MEDS ORDERED: WARFARIN SOD 3 MG TAB PO SCH (09:00)
[2017-02-24] MEDS ORDERED: PNEUMOCOCCAL POLYSACCHARIDES 25 MCG/0.5 ML VIAL/SYR IM. ONE (09:00)
--- NOTE | 2017-02-24 09:28 | Hospitalist Progress Note ---
Hospitalist Progress Note Date of Service Feb 24, 2017. Subjective Pt evaluation today including: conversation w/ patient, physical exam, chart review, lab review, review of studies Pain: None PO Intake: Good Voiding: incontinence The patient was seen and examined this morning. Pt reports feeling ok this morning. She reports having a bad cough, although is nonproductive. She does not feel short of breath, or have chest tightness. She denies any chest pain. Pt is still on 2 L via NC where she normally doesn't wear any. She denies having difficulty swallowing or trouble with thin liquids. She denies any fevers , chills or sweats. She also notes that her bowels moved this morning and her stomach feels fairly good, she has some minimal pain in the LLQ with deep palpation again. Overnight nursing reports she did not wear CPAP. She was difficult to awaken for KUB. Also note pt cough is coarse and has been since 7am shift. Discussion was held with nursing staff at [facility] and they report pt has CPAP and is instructed to wear during sleep, although she is greatly noncompliant with this. They note she is sometimes very difficult to arouse/ awaken from sleep. She has never had difficulty with eating/drinking in the past. Constitutional: No fever, No chills, No sweats Eyes: No redness, No diplopia ENT: No nasal symptoms, No sore throat, No trouble swallowing Respiratory: + cough, No sputum, No wheezing, No shortness of breath, No dyspnea at rest, No hemoptysis Cardiovascular: No chest pain, No edema, No claudication Abdomen: + pain (LLQ, chronic), No nausea, No vomiting, No diarrhea, No constipation Musculoskeletal: No joint pain, No muscle pain, No swelling Neurologic: + weakness, + problem reported (minimal ability to move legs in BLE, + numbness and tingling) Psychiatric: No depression symptoms, No anxiety Skin: No rash, No itch Objective Vital Signs Date Time Temp Pulse Resp B/P (MAP) Pulse Ox O2 Delivery O2 Flow Rate FiO2 02/24/17 06:57 62 16 96 Nasal Cannula 2.0 02/24/17 04:25 36.8 59 20 94/54 (67) 94 Nasal Cannula 2.0 02/24/17 04:00 Nasal Cannula 02/24/17 01:25 70 16 94 Nasal Cannula 2.0 02/24/17 00:11 36.5 85 21 138/78 (98) 95 Nasal Cannula 2.0 02/24/17 00:01 Nasal Cannula 02/23/17 20:00 Nasal Cannula 02/23/17 19:22 36.4 62 14 111/58 (75) 96 Nasal Cannula 2.0 02/23/17 19:00 61 20 95 Nasal Cannula 2.0 02/23/17 18:54 36.7 57 24 89/57 (68) 97 Nasal Cannula 2.0 02/23/17 16:21 36.5 67 20 92/56 92 Nasal Cannula 2.0 02/23/17 15:30 98/48 02/23/17 15:18 99/49 02/23/17 15:09 72 20 88/47 95 2.0 02/23/17 13:49 72 16 88/44 95 Nasal Cannula 2.0 02/23/17 12:55 72 02/23/17 12:15 36.7 75 20 108/51 95 Nasal Cannula 3.0 02/23/17 12:15 83 Room Air Physical Exam General Appearance: WD/WN, no apparent distress Eyes: PERRL, EOMI ENT: hearing grossly normal, pharynx normal Neck: supple, no JVD Respiratory/Chest: no respiratory distress, no accessory muscle use, + pertinent finding (+ coarse bronchial breath sounds in upper anterior nicholas, + crackles BLL, + diminished breath sounds throughout, on 2 L via NC) Cardiovascular: regular rate, rhythm, + systolic murmur Abdomen: normal bowel sounds, non tender, soft, + pertinent finding (+ mild tenderness in the LLQ with palpation, no distension or typany with percussion) Extremities: non-tender, no calf tenderness, + pedal edema (2+ nonpitting bilaterally, ) Neurologic/Psychiatric: alert, + sensory deficit (diminshed to light touch distal BLE. Can wiggle toes bilaterally.), + pertinent finding (oriented to place, president, and self. Unable to name the date/month/year. ) Skin: normal color, warm/dry Laboratory Results Last 24 Hours Test 02/23/17 12:40 02/23/17 13:40 02/23/17 15:05 02/23/17 15:31 White Blood Count 14.17 K/uL Red Blood Count 3.28 M/uL Hemoglobin 9.3 g/dL Hematocrit 30.0 % Mean Corpuscular Volume 91.5 fL Mean Corpuscular Hemoglobin 28.4 pg Mean Corpuscular Hemoglobin Concent 31.0 g/dl Platelet Count 211 K/uL Mean Platelet Volume 9.9 fL Neutrophils (%) (Auto) 65.7 % Lymphocytes (%) (Auto) 14.1 % Monocytes (%) (Auto) 19.8 % Eosinophils (%) (Auto) 0.1 % Basophils (%) (Auto) 0.1 % Neutrophils # (Auto) 9.31 K/uL Lymphocytes # (Auto) 2.00 K/uL Monocytes # (Auto) 2.80 K/uL Eosinophils # (Auto) 0.02 K/uL Basophils # (Auto) 0.01 K/uL RDW Standard Deviation 66.3 fL RDW Coefficient of Variation 19.9 % Immature Granulocyte % (Auto) 0.2 % Immature Granulocyte # (Auto) 0.03 K/uL Prothrombin Time 39.6 SECONDS Prothromb Time International Ratio 3.5 Activated Partial Thromboplast Time 42.7 SECONDS Partial Thromboplastin Ratio 1.6 Sodium Level 139 mmol/L Potassium Level 5.0 mmol/L Chloride Level 104 mmol/L Carbon Dioxide Level 28 mmol/L Anion Gap 8.0 mmol/L Blood Urea Nitrogen 40 mg/dl Creatinine 1.50 mg/dl Est Creatinine Clear Calc Drug Dose 34.4 ml/min Estimated GFR () 38.0 Estimated GFR (Non- 32.8 BUN/Creatinine Ratio 26.5 Random Glucose 134 mg/dl Calcium Level 9.3 mg/dl Total Bilirubin 0.5 mg/dl Aspartate Amino Transf (AST/SGOT) 30 U/L Alanine Aminotransferase (ALT/SGPT) 32 U/L Alkaline Phosphatase 67 U/L Troponin I 0.036 ng/ml Total Protein 7.8 gm/dl Albumin 2.8 gm/dl Globulin 5.0 gm/dl Albumin/Globulin Ratio 0.6 Bedside Lactic Acid Venous 1.23 mmol/L Urine Color YELLOW Urine Appearance CLOUDY Urine pH 5.0 Urine Specific [place] 1.018 Urine Protein TRACE Urine Glucose (UA) NEG Urine Ketones NEG Urine Occult Blood 2+ Urine Nitrite POS Urine Bilirubin NEG Urine Urobilinogen NEG Urine Leukocyte Esterase MODERATE Urine WBC (Auto) >30 /hpf Urine RBC (Auto) 0-4 /hpf Urine Hyaline Casts (Auto) 5-10 /lpf Urine Epithelial Cells (Auto) 10-20 /lpf Urine Bacteria (Auto) 4+ Urine Yeast (Auto) Lactic Acid Level 1.3 mmol/L Test 02/24/17 06:48 White Blood Count 6.28 K/uL Red Blood Count 3.12 M/uL Hemoglobin 8.8 g/dL Hematocrit 29.0 % Mean Corpuscular Volume 92.9 fL Mean Corpuscular Hemoglobin 28.2 pg Mean Corpuscular Hemoglobin Concent 30.3 g/dl Platelet Count 157 K/uL Mean Platelet Volume 9.7 fL Neutrophils (%) (Auto) 55.4 % Lymphocytes (%) (Auto) 27.7 % Monocytes (%) (Auto) 14.8 % Eosinophils (%) (Auto) 1.6 % Basophils (%) (Auto) 0.2 % Neutrophils # (Auto) 3.48 K/uL Lymphocytes # (Auto) 1.74 K/uL Monocytes # (Auto) 0.93 K/uL Eosinophils # (Auto) 0.10 K/uL Basophils # (Auto) 0.01 K/uL RDW Standard Deviation 68.6 fL RDW Coefficient of Variation 20.2 % Immature Granulocyte % (Auto) 0.3 % Immature Granulocyte # (Auto) 0.02 K/uL Hypersegmented Polys 1+ Anisocytosis PRESENT Prothrombin Time 28.7 SECONDS Prothromb Time International Ratio 2.6 Sodium Level 140 mmol/L Potassium Level 4.8 mmol/L Chloride Level 104 mmol/L Carbon Dioxide Level 28 mmol/L Anion Gap 7.0 mmol/L Blood Urea Nitrogen 45 mg/dl Creatinine 1.55 mg/dl Est Creatinine Clear Calc Drug Dose 32.8 ml/min Estimated GFR () 36.5 Estimated GFR (Non- 31.5 BUN/Creatinine Ratio 29.2 Random Glucose 118 mg/dl Calcium Level 9.2 mg/dl Triglycerides Level 131 mg/dl Cholesterol Level 112 mg/dl HDL Cholesterol 41 mg/dl LDL Cholesterol, Calculated 45 mg/dl VLDL Cholesterol, Calculated 26 mg/dl Cholesterol/HDL Ratio 2.7 Assessment and Plan This is a 81 yo F with PMHx of chronic diastolic CHF, 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 Sepsis secondary to UTI - Appears this is likely related to UTI with dirty UA, follow culture - Initially hypotensive but pt received lopressor this morning. Pt was administered NSS enroute to hospital. In ER pt recieved a total of 1 L fluid. BP has improved at this time so will order slow maintenance fluids with diastolic CHF. - Unknown etiology at this point but pt does not appear to be septic. POC lactic acid was negative, rechecking lactic now. - Hypoxia improved with supplemental O2, lung sounds are diminished at bases with faint crackles. - CXR reviewed showing pulmonary edema but pt is nonambulatory - does not appear to be consistent with pna. - WBC improved from 14.7 K to 6K with IV abx- continue on zosyn - Follow BCx x 2 - Per niece pt is normally AAOx3 ? Concern for aspiration - Pt developed coarse bronchial breath sounds overnight - Will check 1 view CXR this morning - Per pt and staff at nursing facility she does not have a hx of issues with aspiration Ileus - resolved - KUB completed 02/23 Mildly distended colon and a few borderline gas-filled loops of small bowel. Findings favor an ileus. Small to moderate amount of stool within the colon. - Had BM this morning, no abdominal sx Chronic diastolic CHF - Last echo obtained last April with preserved EF, will repeat - Administered a total of 1L NSS in the ER - BP improved to 99/74 - will place on maintenance fluids at 75 mL/hr for 12 hours. - Continue amiodarone 200 mg daily - Cont aspirin 81 mg daily - hold lasix 40 mg PO tabs HTN - HOLD Imdur ER 30 mg daily and metoprolol tartrate 37.5 mg BID - possibly can resume tomorrow if BP remains ok. HLD - Continue statin therapy Paroxysmal Afib - Cont amiodarone therapy for rate control. - Continue on coumadin 3 mg all days of the week except Mondays, on Friday administer 4 mg. - INR = 2.6 today - Follow INR Spinal Stenosis/ DJD / Lumbar neuropathy Acquired paraplegia secondary to lumbar spinal stenosis - Pt is wheelchair bound but does have some ability to wiggle toes and has dulled sensation to light touch. - Cont gabapentin 300 mg TID ROCKY - Does not wear supplemental O2 at baseline - will order CPAP - Ordered to wear CPAP during sleep as outpatient, pt is reportedly noncompliant. Hypothyroidism - Cont synthroid 37.5 mcg daily GERD - Cont protonix 40 mg daily and ranitidine 150 mg BID Herpes Simplex - Continue alacyclovir 1 gm PO daily Vit D Deficiency - Continue supplementation DVT ppx: Teds, scds, coumadin CODE STATUS: DNR Disposition: From [facility], discharge unknown, possible in ~ 2 days
[2017-02-24 09:31] LABS: ESTIMATED AVERAGE GLUCOSE 157 mg/dl; HA1C FLAG Normal (Normal)
[2017-02-24] MEDS ORDERED: PERFLUTREN LIPID MICROSPHERE (DEFINITY) IV ONE (09:49)
--- NOTE | 2017-02-24 11:49 | Clinical Documentation Query ---
CLINICAL DOCUMENTATION QUERY 81 year old female who presents to the Emergency Room with complaints of constant lethargy and encephalopathy. In your clinical opinion is this patient being managed for: ( ) Sepsis of unknown source treated with IVF boluses, IV Zosyn and telemetry. ( ) Not Agree ( ) Other explanation of clinical findings (Please Explain) ( ) Unable to determine (Please Define) ( ) Need to Discuss The medical record reflects the following clinical findings, treatment, and risk factors. Clinical Indicators: AMS, encephalopathy, SIRS, hypotension 88/47, hypoxia 83%, GCS 13, WBC's 14.17 Treatment: IVF boluses, IV Zosyn, Head CT, Risk Factors:Age, Please clarify and document your clinical opinion in the progress notes and discharge summary. Terms such as "probable", "suspected", "likely", "questionable", "possible", or "still to be ruled out" are acceptable. IF IN AGREEMENT, YOU MUST DOCUMENT ABOVE DIAGNOSTIC STATEMENT IN DAILY PROGRESS NOTES AND DISCHARGE SUMMARY. This document is not part of the patient's record. Thank You, Atif Kunz, RN [phone]
--- NOTE | 2017-02-24 12:09 | DIAGNOSTIC IMAGING REPORT ---
CHEST ONE VIEW PORTABLE CLINICAL HISTORY: Worsening cough. Possible aspiration or pulmonary edema. COMPARISON STUDY: Chest radiograph February 23, 2017. FINDINGS: There are median sternotomy wires. Cardiomegaly is unchanged. There is no pneumothorax or pleural effusion. Lung volumes are diminished. This is unchanged. No consolidation is identified. Mild left basilar opacity favors atelectasis. There is pulmonary vascular congestion. There is no evidence of pulmonary edema. IMPRESSION: 1. Pulmonary vascular congestion without evidence of pulmonary edema. 2. No consolidation to suggest pneumonia. Electronically signed by: Marcel Angel M.D. 02/24/2017 12:08 PM Dictated Date/Time: 02/24/2017 12:06 PM
[2017-02-24] MEDS ORDERED: WARFARIN SOD 4 MG TAB PO ONE (16:00)
--- NOTE | 2017-02-24 17:45 | ECHOCARDIOGRAM REPORT ---
*NOTICE TO RECEIVING [employer] This information is strictly Confidential and protected under [place] law. [place] law prohibits you from making any further disclosure of this information unless further disclosure is expressly permitted by the written consent of the person to whom it pertains or is authorized by law. A general authorization for the release of medical or other information is not sufficient for this purpose. Hospital accepts no responsibility if the information is made available to any other person, INCLUDING THE PATIENT. Interpretation Summary * Name: BONITA BLOCK Study Date: 02/24/2017 07:09 AM BP: 94/54 mmHg * Patient Location: C.2T\S\E219\S\1 HR: 62 * : 1935 (M/d/yyyy) Gender: Female Height: 60 in * Age: 81 yrs Ethnicity: [place] Weight: 238 lb * Ordering Physician: Melissa Dunbar * Referring Physician: Marlen Thomas * Performed By: Christy Murry RDCS * * Reason For Study: CHF * BSA: 2.0 m2 * -- Conclusions -- * 1. Normal LV size. Mild concentric LVH. * 2. Normal LV systolic function. LVEF 60-65%. No regional wall motion abnormalities. * 3. Mildly dilated RV. Normal RV function. * 4. Grade II diastolic dysfunciton. * 5. Mild mitral regurgitation. * 6. Compared with prior study on 05/02/2016: No significant changes. Procedure Details * A contrast injection of Definity was performed to improve assessment of LV function. * Contrast was injected into an intravenous site in the left arm. * One vial of Definity ultrasound contrast was diluted in normal saline to a total volume of 10 ml. A total of '1.5' ml of solution was administered during imaging. * Lot # [id number] of Definity utilized for procedure. * Expiration date MAR 24. * The attending nurse who injected the contrast agent was MAGDALENA POTTER RN. Left Ventricle * The left ventricle is grossly normal size. * There is mild concentric left ventricular hypertrophy. * Ejection Fraction = 60-65%. * No regional wall motion abnormalities noted. Right Ventricle * The right ventricle is mildly dilated. * The right ventricular systolic function is normal as assessed by tricuspid annular plane systolic excursion (TAPSE) (normal >1.5 cm). Atria * The left atrium is mildly dilated. * The right atrium is moderately dilated. * No ASD detected; PFO is not assessed. Mitral Valve * There is mild mitral annular calcification. * Mitral stenosis is absent. * There is mild mitral regurgitation. Tricuspid Valve * There is mild tricuspid regurgitation. Aortic Valve * Aortic valve sclerosis mild, without significant aortic valvular stenosis. * No hemodynamically significant valvular aortic stenosis. * There is no significant aortic regurgitation. Pulmonic Valve * The pulmonary valve is inadequately visualized, but the Doppler data is adequate for interpretation. * Pulmonic stenosis is absent. * Trace pulmonic valvular regurgitation. Great Vessels * The aortic root and proximal ascending aorta are normal sized. Pericardium/Pleural * Trivial pericardial effusion Left Ventricular Diastolic Function * Diastolic dysfunction, Grade II, consistent with elevated left atrial pressure. MMode 2D Measurements and Calculations IVSd 1.0 cm IVSs 1.3 cm LVIDd 5.4 cm LVIDs 3.6 cm LVPWd 1.3 cm LVPWs 1.8 cm IVS/LVPW 0.82 FS 32.8 % EDV(Teich) 142.9 ml ESV(Teich) 56.1 ml EF(Teich) 60.7 % EDV(cubed) 159.8 ml ESV(cubed) 48.5 ml EF(cubed) 69.7 % % IVS thick 24.6 % % LVPW thick 44.1 % LV mass(C)d 253.7 grams LV mass(C)dI 126.2 grams/m\S\2 LV mass(C)s 219.4 grams LV mass(C)sI 109.2 grams/m\S\2 SV(Teich) 86.8 ml SI(Teich) 43.2 ml/m\S\2 SV(cubed) 111.4 ml SI(cubed) 55.4 ml/m\S\2 Ao root diam 3.3 cm Ao root area 8.6 cm\S\2 LA dimension 3.9 cm LA/Ao 1.2 LVAd ap4 25.0 cm\S\2 LVLd ap4 7.6 cm EDV(MOD-sp4) 67.2 ml EDV(sp4-el) 69.3 ml LVAs ap4 13.8 cm\S\2 LVLs ap4 6.1 cm ESV(MOD-sp4) 26.4 ml ESV(sp4-el) 26.2 ml EF(MOD-sp4) 60.8 % EF(sp4-el) 62.2 % LVAd ap2 24.7 cm\S\2 LVLd ap2 7.5 cm EDV(MOD-sp2) 66.9 ml EDV(sp2-el) 69.6 ml LVAs ap2 13.9 cm\S\2 LVLs ap2 5.9 cm ESV(MOD-sp2) 26.8 ml ESV(sp2-el) 27.9 ml EF(MOD-sp2) 60.0 % EF(sp2-el) 60.0 % LVLd %diff -2.40 % EDV(MOD-bp) 66.9 ml LVLs %diff -3.36 % ESV(MOD-bp) 26.7 ml EF(MOD-bp) 60.1 % SV(MOD-sp4) 40.9 ml SI(MOD-sp4) 20.3 ml/m\S\2 SV(MOD-sp2) 40.1 ml SI(MOD-sp2) 20.0 ml/m\S\2 SV(MOD-bp) 40.2 ml SI(MOD-bp) 20.0 ml/m\S\2 SV(sp4-el) 43.1 ml SI(sp4-el) 21.5 ml/m\S\2 SV(sp2-el) 41.8 ml SI(sp2-el) 20.8 ml/m\S\2 Doppler Measurements and Calculations MV E max nahed 133.7 cm/sec MV A max nahed 49.6 cm/sec MV E/A 2.7 MV dec time 0.22 sec Ao V2 max 148.7 cm/sec Ao max PG 8.8 mmHg Ao max PG (full) 6.6 mmHg LV V1 max PG 2.2 mmHg LV V1 max 74.7 cm/sec TR max nahed 238.5 cm/sec
[2017-02-24] MEDS: DOCUSATE SODIUM 100 MG CAP PO SCH (20:41)
[2017-02-25] VITALS (13 sets, daily range): BP systolic 118–134; BP diastolic 64–80; PULSE 68–86; TEMP 36.4–36.6; O2SAT 94–98
[2017-02-25] MEDS: PIPERACILL/TAZOBAC IV 4.5 GM in DEXTROSE 5% 100ML 100 ML IV SCH ×2 (03:31→12:18)
[2017-02-25] MEDS: LEVOTHYROXINE 137 MCG TAB PO SCH (04:52)
[2017-02-25] MEDS: GABAPENTIN 300 MG CAP PO SCH ×3 (04:52→21:40)
[2017-02-25 05:34] LABS: BASO % 0.1 %; BASO ABS # 0.01 K/uL (0-0.2); EOS % 2.8 %; HEMATOCRIT 31.5 % (37-47); IG% 0.3 %; LYMPH % 15.6 %; LYMPH ABS # 1.04 K/uL (1.2-3.4); MEAN CELL VOLUME 91.3 fL (80-100); MEAN CORPUSCULAR HEMOGLOBIN 28.7 pg (25-34); MEAN CORPUSCULAR HGB CONC 31.4 g/dl (32-36); MEAN PLATELET VOLUME 9.4 fL (7.4-10.4); MONO % 13.2 %; PLATELET COUNT 179 K/uL (130-400); RED BLOOD COUNT 3.45 M/uL (4.2-5.4); WHITE BLOOD COUNT 6.67 K/uL (4.8-10.8)
[2017-02-25 05:53] LABS: BUN/CREATININE RATIO 24.3 (10-20); CALCIUM 9.1 mg/dl (8.5-10.1); CREATININE 1.51 mg/dl (0.60-1.20); POTASSIUM 4.3 mmol/L (3.5-5.1)
[2017-02-25 05:56] LABS: INR 2.2 (0.9-1.1); PROTHROMBIN TIME (PATIENT) 24.5 SECONDS (9.0-12.0)
[2017-02-25 06:03] LABS: ANISOCYTOSIS PRESENT; COMPLETE YES; POLYCHROMASIA 1+
[2017-02-25] MEDS: IPRATROPIUM BROMIDE NEB SOLN 0.02% 2.5 ML VIAL INH SCH ×3 (06:59→21:14)
[2017-02-25] MEDS: RANITIDINE HCL 150 MG TAB PO SCH ×2 (09:07→19:55)
[2017-02-25] MEDS: CHOLECALCIFEROL 1000 INTER.UNIT TAB PO SCH (09:07)
[2017-02-25] MEDS: ATORVASTATIN 10 MG TAB PO SCH (09:07)
[2017-02-25] MEDS: PANTOprazole SOD 40 MG TAB PO SCH (09:07)
[2017-02-25] MEDS: AMIODARONE 200 MG TAB PO SCH (09:07)
[2017-02-25] MEDS: ARTIFICIAL TEARS OP SOLN OPB SCH ×2 (09:08)
[2017-02-25] MEDS: MICONAZOLE NITRATE 2% CR 30 GM TUBE EXT SCH ×2 (09:08→19:54)
[2017-02-25] MEDS: ALPRAZOLAM 0.5 MG TAB PO SCH ×2 (09:10→19:54)
--- NOTE | 2017-02-25 09:40 | Hospitalist Progress Note ---
Hospitalist Progress Note Date of Service Feb 25, 2017. Subjective Pt evaluation today including: conversation w/ patient, physical exam, chart review, lab review, review of studies Pain: None PO Intake: Fair Voiding: incontinence The patient was seen and examined this morning. Pt reports doing ok this morning. She is sleeping but is awoken with verbal stimuli. She did not wear Cpap overnight because the mask did not fit. She has typically been noncompliant with this at [facility]. She still has a coarse cough but reports it is slightly less than yesterday. She has been tolerating food per her report without difficulty, pt knows Speech therapy will be seeing her today. ROS: Denies fever, chills, sweats, slept well overnight, no chest pain, shortness of breath, abd pain other than chronic mild LLQ pain, no bloating or distension, last BM was yesterday. No shortness of breath on 2L via NC. No lightheadedness or dizziness. Objective Vital Signs Date Time Temp Pulse Resp B/P (MAP) Pulse Ox O2 Delivery O2 Flow Rate FiO2 02/25/17 08:00 36.6 76 20 134/80 (98) 96 Nasal Cannula 2.0 02/25/17 06:59 75 16 95 Nasal Cannula 2.0 02/25/17 04:00 95 Nasal Cannula 2.0 02/25/17 03:34 36.5 85 20 125/64 (84) 95 Nasal Cannula 2.0 02/24/17 23:59 36.5 82 20 152/73 (99) 95 Nasal Cannula 2.0 02/24/17 23:59 95 Nasal Cannula 2.0 02/24/17 20:00 Nasal Cannula 2.0 02/24/17 19:49 36.4 82 24 146/71 (96) 94 Nasal Cannula 2.0 02/24/17 19:44 76 16 93 Nasal Cannula 2.0 02/24/17 16:00 94 Room Air 2.0 02/24/17 15:20 36.4 83 20 123/73 (90) 94 Room Air 02/24/17 14:07 80 16 93 Nasal Cannula 2.0 02/24/17 12:00 Room Air 02/24/17 11:28 36.5 71 20 126/76 (93) 94 Nasal Cannula 1.5 Physical Exam Notes: General Appearance: WD/WN, no apparent distress, sleeping upon entry but easily awoken Eyes: PERRL, EOMI ENT: hearing grossly normal, pharynx normal Neck: supple, no JVD Respiratory/Chest: no respiratory distress, no accessory muscle use, + pertinent finding (+ mild coarse bronchial breath sounds in upper anterior nicholas, + faint crackles BLL, on 2 L via NC) Cardiovascular: regular rate, rhythm, + systolic murmur Abdomen: normal bowel sounds, non tender, soft, + pertinent finding (+ mild tenderness in the LLQ with palpation, no distension or typany with percussion) Extremities: non-tender, no calf tenderness, + pedal edema (2+ nonpitting bilaterally) Neurologic/Psychiatric: alert, + sensory deficit (diminished to light touch distal BLE. Can wiggle toes bilaterally.), + pertinent finding (oriented to place, president, and self. Unable to name the date/month/year. ) Skin: normal color, warm/dry Laboratory Results Last 24 Hours Test 02/25/17 05:15 White Blood Count 6.67 K/uL Red Blood Count 3.45 M/uL Hemoglobin 9.9 g/dL Hematocrit 31.5 % Mean Corpuscular Volume 91.3 fL Mean Corpuscular Hemoglobin 28.7 pg Mean Corpuscular Hemoglobin Concent 31.4 g/dl Platelet Count 179 K/uL Mean Platelet Volume 9.4 fL Neutrophils (%) (Auto) 68.0 % Lymphocytes (%) (Auto) 15.6 % Monocytes (%) (Auto) 13.2 % Eosinophils (%) (Auto) 2.8 % Basophils (%) (Auto) 0.1 % Neutrophils # (Auto) 4.53 K/uL Lymphocytes # (Auto) 1.04 K/uL Monocytes # (Auto) 0.88 K/uL Eosinophils # (Auto) 0.19 K/uL Basophils # (Auto) 0.01 K/uL RDW Standard Deviation 66.7 fL RDW Coefficient of Variation 20.0 % Immature Granulocyte % (Auto) 0.3 % Immature Granulocyte # (Auto) 0.02 K/uL Polychromasia 1+ Basophilic Stippling 1+ Anisocytosis PRESENT Prothrombin Time 24.5 SECONDS Prothromb Time International Ratio 2.2 Sodium Level 138 mmol/L Potassium Level 4.3 mmol/L Chloride Level 103 mmol/L Carbon Dioxide Level 28 mmol/L Anion Gap 7.0 mmol/L Blood Urea Nitrogen 37 mg/dl Creatinine 1.51 mg/dl Est Creatinine Clear Calc Drug Dose 33.7 ml/min Estimated GFR () 37.7 Estimated GFR (Non- 32.5 BUN/Creatinine Ratio 24.3 Random Glucose 137 mg/dl Calcium Level 9.1 mg/dl Assessment and Plan This is a 81 yo F with PMHx of chronic diastolic CHF, 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 Sepsis secondary to UTI - Appears this is likely related to UTI with dirty UA, follow culture - Initially hypotensive but pt received lopressor the morning of admission. Pt was administered NSS enroute to hospital. In ER pt recieved a total of 1 L fluid. BP has improved at this time so will order slow maintenance fluids with diastolic CHF. lactic acid was negative - WBC improved from 14.7 K to 6K with IV abx- continue on zosyn - Follow BCx x 2 - NGTD prelim Possible Aspiration Pneumonia - Hypoxia improved with supplemental O2, lung sounds are diminished at bases with faint crackles. Had increased respiratory rate, coarse cough although is nonproductive - CXR reviewed showing pulmonary edema but pt is nonambulatory - repeat CXR obtained 02/24: IMPRESSION: 1. Pulmonary vascular congestion without evidence of pulmonary edema. 2. No consolidation to suggest pneumonia. - Per pt and staff at nursing facility she does not have a hx of issues with aspiration - Will order 1x dose of lasix this morning 20 mg IV Ileus - resolved - KUB completed 02/23 Mildly distended colon and a few borderline gas-filled loops of small bowel. Findings favor an ileus. Small to moderate amount of stool within the colon. - Had BM 02/24, no abdominal sx Chronic diastolic CHF - Last echo obtained last April with preserved EF, will repeat - Administered a total of 1L NSS in the ER - BP improved to 99/74 - will place on maintenance fluids at 75 mL/hr for 12 hours. - Continue amiodarone 200 mg daily - Cont aspirin 81 mg daily - hold lasix 40 mg PO tabs HTN - HOLD Imdur ER 30 mg daily and metoprolol tartrate 37.5 mg BID - possibly can resume tomorrow if BP remains ok. HLD - Continue statin therapy Paroxysmal Afib - Cont amiodarone therapy for rate control. - Continue on coumadin 3 mg all days of the week except Mondays, on Friday administer 4 mg. - INR = 2.6 today - Follow INR Spinal Stenosis/ DJD / Lumbar neuropathy Acquired paraplegia secondary to lumbar spinal stenosis - Pt is wheelchair bound but does have some ability to wiggle toes and has dulled sensation to light touch. - Cont gabapentin 300 mg TID ROCKY - Does not wear supplemental O2 at baseline - will order CPAP - did not wear this overnight. - Ordered to wear CPAP during sleep as outpatient, pt is reportedly noncompliant. Hypothyroidism - Cont synthroid 37.5 mcg daily GERD - Cont protonix 40 mg daily and ranitidine 150 mg BID Herpes Simplex - Continue alacyclovir 1 gm PO daily Vit D Deficiency - Continue supplementation DVT ppx: Teds, scds, coumadin CODE STATUS: DNR Disposition: From [facility], discharge unknown, possible in ~ 1-2 days
[2017-02-25] MEDS ORDERED: FUROSEMIDE INJ 20 MG in SYRINGE 0 ML IV ONE (10:00)
[2017-02-25] MEDS: ASPIRIN 81 MG CHEW PO SCH (10:39)
[2017-02-25] MEDS: WARFARIN SOD 3 MG TAB PO SCH (16:09)
[2017-02-25] MEDS: LACTOBACILLUS ACIDOPHILUS (FLORANEX) TAB PO SCH (16:09)
[2017-02-25] MEDS: DOCUSATE SODIUM 100 MG CAP PO SCH (19:55)
[2017-02-25] MEDS: CEFTRIAXONE SOD INJ 1000 MG in DEXTROSE 5% 50ML IV SCH (20:13)
[2017-02-26] VITALS (9 sets, daily range): BP systolic 94–131; BP diastolic 57–78; PULSE 17–86; TEMP 36.4–36.5; O2SAT 91–94
[2017-02-26] MEDS: IPRATROPIUM BROMIDE NEB SOLN 0.02% 2.5 ML VIAL INH SCH ×4 (01:46→19:04)
[2017-02-26 06:00] LABS: BASO % 0.2 %; BASO ABS # 0.01 K/uL (0-0.2); COMPLETE YES; EOS % 2.9 %; HEMATOCRIT 29.9 % (37-47); LYMPH % 22.5 %; LYMPH ABS # 1.08 K/uL (1.2-3.4); MEAN CELL VOLUME 93.1 fL (80-100); MEAN CORPUSCULAR HEMOGLOBIN 28.3 pg (25-34); MEAN CORPUSCULAR HGB CONC 30.4 g/dl (32-36); MEAN PLATELET VOLUME 9.1 fL (7.4-10.4); MONO % 13.3 %; NEUT % 61.1 %; PLATELET COUNT 161 K/uL (130-400); RED BLOOD COUNT 3.21 M/uL (4.2-5.4); WHITE BLOOD COUNT 4.81 K/uL (4.8-10.8)
[2017-02-26] MEDS: GABAPENTIN 300 MG CAP PO SCH ×3 (06:11→19:36)
[2017-02-26] MEDS: LEVOTHYROXINE 137 MCG TAB PO SCH (06:11)
[2017-02-26 06:45] LABS: INR 2.3 (0.9-1.1); PROTHROMBIN TIME (PATIENT) 25.4 SECONDS (9.0-12.0)
[2017-02-26] MEDS: CHOLECALCIFEROL 1000 INTER.UNIT TAB PO SCH (09:11)
[2017-02-26] MEDS: ATORVASTATIN 10 MG TAB PO SCH (09:11)
[2017-02-26] MEDS: PANTOprazole SOD 40 MG TAB PO SCH (09:11)
[2017-02-26] MEDS: RANITIDINE HCL 150 MG TAB PO SCH ×2 (09:11→19:37)
[2017-02-26] MEDS: AMIODARONE 200 MG TAB PO SCH (09:12)
[2017-02-26] MEDS: LACTOBACILLUS ACIDOPHILUS (FLORANEX) TAB PO SCH ×3 (09:12→15:52)
[2017-02-26] MEDS: MICONAZOLE NITRATE 2% CR 30 GM TUBE EXT SCH ×2 (09:13→19:35)
[2017-02-26] MEDS: ARTIFICIAL TEARS OP SOLN OPB SCH ×2 (09:13)
[2017-02-26] MEDS: ALPRAZOLAM 0.5 MG TAB PO SCH ×2 (09:16→19:36)
[2017-02-26] MEDS: ASPIRIN 81 MG CHEW PO SCH (09:17)
--- NOTE | 2017-02-26 11:50 | Hospitalist Progress Note ---
Hospitalist Progress Note Date of Service Feb 26, 2017. Subjective Pt evaluation today including: conversation w/ patient, physical exam, chart review, lab review, review of studies PO Intake: Good Voiding: no voiding problems, incontinence The patient was seen and examined this morning. Pt reports doing well today, she says she feels the best she has in days. Overnight she wore cpap and tolerated it without difficulty, she reports hers a [place] leaks sometimes , but that she is willing to wear this more. She reports rectal tube was removed last evening for wrong placement. Probiotic tabs were started yesterday , and since then her stool have become more solid. Pt also notes her nose was bleeding a little bit this morning after removal of CPAP. She reports a chronic LLQ abdominal pain and that this is only minimal. ROS: 6 point ROS was reviewed and otherwise negative. Objective Vital Signs Date Time Temp Pulse Resp B/P (MAP) Pulse Ox O2 Delivery O2 Flow Rate FiO2 02/26/17 07:58 BiPAP 02/26/17 07:46 36.4 66 18 124/78 (93) 93 CPAP 4.0 02/26/17 07:17 66 93 4.0 02/26/17 07:17 66 14 93 BiPAP/CPAP 4.0 02/26/17 01:48 74 14 94 BiPAP/CPAP 4.0 02/26/17 01:48 74 94 4.0 02/26/17 00:20 BiPAP 02/25/17 23:58 36.5 85 18 134/72 (92) 96 CPAP 02/25/17 22:30 86 94 4.0 02/25/17 21:16 78 14 97 Nasal Cannula 1.0 02/25/17 19:50 Nasal Cannula 2.0 02/25/17 18:22 36.5 72 17 118/67 (84) 98 Nasal Cannula 2.0 02/25/17 17:54 36.6 73 20 98 2.0 02/25/17 16:00 98 Nasal Cannula 2.0 02/25/17 15:17 36.6 73 20 119/80 (93) 98 Nasal Cannula 2.0 02/25/17 14:25 68 16 98 Nasal Cannula 2.0 02/25/17 12:00 Nasal Cannula 2.0 02/25/17 12:00 36.4 74 18 120/70 (87) 96 Nasal Cannula 2.0 Physical Exam Notes: Physical Exam General Appearance: WD/WN, no apparent distress Eyes: PERRL, EOMI ENT: hearing grossly normal, pharynx normal Neck: supple, no JVD Respiratory/Chest: no respiratory distress, no accessory muscle use, + pertinent finding ( On room air, breath sounds are significantly improve, faint crackles in the RLL.) Cardiovascular: regular rate, rhythm, + systolic murmur Abdomen: normal bowel sounds, non tender, soft, + pertinent finding (+ mild tenderness in the LLQ with palpation, no distension or typany with percussion) Extremities: non-tender, no calf tenderness, + pedal edema (2+ nonpitting bilaterally in feet ) Neurologic/Psychiatric: alert, + sensory deficit (diminished to light touch distal BLE. Can wiggle toes bilaterally.), + pertinent finding (oriented to place, president, and self. Unable to name the date/month/year. ) Skin: normal color, warm/dry Laboratory Results Last 24 Hours Test 02/26/17 05:45 White Blood Count 4.81 K/uL Red Blood Count 3.21 M/uL Hemoglobin 9.1 g/dL Hematocrit 29.9 % Mean Corpuscular Volume 93.1 fL Mean Corpuscular Hemoglobin 28.3 pg Mean Corpuscular Hemoglobin Concent 30.4 g/dl Platelet Count 161 K/uL Mean Platelet Volume 9.1 fL Neutrophils (%) (Auto) 61.1 % Lymphocytes (%) (Auto) 22.5 % Monocytes (%) (Auto) 13.3 % Eosinophils (%) (Auto) 2.9 % Basophils (%) (Auto) 0.2 % Neutrophils # (Auto) 2.94 K/uL Lymphocytes # (Auto) 1.08 K/uL Monocytes # (Auto) 0.64 K/uL Eosinophils # (Auto) 0.14 K/uL Basophils # (Auto) 0.01 K/uL RDW Standard Deviation 67.6 fL RDW Coefficient of Variation 19.8 % Immature Granulocyte % (Auto) 0.0 % Immature Granulocyte # (Auto) 0.00 K/uL Prothrombin Time 25.4 SECONDS Prothromb Time International Ratio 2.3 Assessment and Plan This is a 81 yo F with PMHx of chronic diastolic CHF, 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 after she was noted to have an altered mental status where she was initially unresponsive, hypotension with systolic in the 70s, and hypoxic at 83 % on RA this morning. Sepsis secondary to UTI - Appears this is likely related to UTI with dirty UA, repeat cx negative - Initially hypotensive but pt received lopressor the morning of admission. Pt was administered NSS enroute to hospital. In ER pt received a total of 1 L fluid. BP has improved so had slow maintenance fluids with diastolic CHF. lactic acid was negative. - WBC improved from 14.7 K to 4K with IV abx- switched zosyn to ceftriaxone on 02/25 - Follow BCx x 2 - NGTD prelim Possible Aspiration Pneumonia - Hypoxia improved with supplemental O2, lung sounds are diminished at bases with faint crackles. Had increased respiratory rate, coarse cough although is nonproductive - CXR reviewed showing pulmonary edema but pt is nonambulatory - repeat CXR obtained 02/24: IMPRESSION: 1. Pulmonary vascular congestion without evidence of pulmonary edema. 2. No consolidation to suggest pneumonia. - Per pt and staff at nursing facility she does not have a hx of issues with aspiration - Small dose lasix 20 mg IV administered on 02/25 and pt breath sounds are significantly improved. Ileus - resolved - KUB completed 02/23 Mildly distended colon and a few borderline gas-filled loops of small bowel. Findings favor an ileus. Small to moderate amount of stool within the colon. Diarrhea - resolving - Had BM 02/24 an then developed loose stools on 02/25 likely from zosyn. - Cultures for c. diff, shigella and salmonella were negative - Probiotic started 02/25 and seems to be improving. Chronic diastolic CHF -- Resume lasix 40 mg PO tabs as pt responded well to 20 mg IV well on 02/26 - appears to have been some pulmonary congestion - Echo -- Conclusions -- 02/25 * 1. Normal LV size. Mild concentric LVH. * 2. Normal LV systolic function. LVEF 60-65%. No regional wall motion abnormalities. * 3. Mildly dilated RV. Normal RV function. * 4. Grade II diastolic dysfunciton. * 5. Mild mitral regurgitation. * 6. Compared with prior study on 05/02/2016: No significant changes. - Initially hypotensive but was administered a total of 1L NSS in the ER - BP improved to 99/74 - was on maintenance fluids at 75 mL/hr for 12 hours and improved. - Continue amiodarone 200 mg daily - Cont aspirin 81 mg daily HTN - HOLD Imdur ER 30 mg daily and metoprolol tartrate 37.5 mg BID - possibly can resume tomorrow if BP remains ok. HLD - Continue statin therapy Paroxysmal Afib - Cont amiodarone therapy for rate control. - Continue on coumadin 3 mg all days of the week except Mondays, on Friday administer 4 mg. - INR = 2.6 today - Follow INR Spinal Stenosis/ DJD / Lumbar neuropathy Acquired paraplegia secondary to lumbar spinal stenosis - Pt is wheelchair bound but does have some ability to wiggle toes and has dulled sensation to light touch. - Cont gabapentin 300 mg TID ROCKY - Does not wear supplemental O2 at baseline - will order CPAP - did not wear this overnight. - Ordered to wear CPAP during sleep as outpatient, pt is reportedly noncompliant. Hypothyroidism - Cont synthroid 37.5 mcg daily GERD - Cont protonix 40 mg daily and ranitidine 150 mg BID Herpes Simplex - Continue alacyclovir 1 gm PO daily Vit D Deficiency - Continue supplementation DVT ppx: Teds, scds, coumadin CODE STATUS: DNR Disposition: From [facility] [place] [facility], bed hold and can transport there tomorrow as she will likely be ready in 1 day
[2017-02-26] MEDS: FUROSEMIDE 40 MG TAB PO SCH (13:04)
[2017-02-26] MEDS: WARFARIN SOD 3 MG TAB PO SCH (15:52)
[2017-02-26] MEDS: DOCUSATE SODIUM 100 MG CAP PO SCH (19:36)
[2017-02-26] MEDS: CEFTRIAXONE SOD INJ 1000 MG in DEXTROSE 5% 50ML IV SCH (19:36)
[2017-02-27] VITALS: O2SAT 91
[2017-02-27 00:34] VITALS: BP 125/74; PULSE 80; TEMP 36.9; O2SAT 96
[2017-02-27 01:56] VITALS: PULSE 78; O2SAT 96
[2017-02-27] MEDS: IPRATROPIUM BROMIDE NEB SOLN 0.02% 2.5 ML VIAL INH SCH ×2 (01:56→07:10)
[2017-02-27] MEDS: GABAPENTIN 300 MG CAP PO SCH (05:06)
[2017-02-27] MEDS: LEVOTHYROXINE 137 MCG TAB PO SCH (05:06)
[2017-02-27 06:03] LABS: HEMATOCRIT 33.3 % (37-47); MEAN CORPUSCULAR HEMOGLOBIN 28.2 pg (25-34); MEAN CORPUSCULAR HGB CONC 30.3 g/dl (32-36); MEAN PLATELET VOLUME 9.3 fL (7.4-10.4); PLATELET COUNT 191 K/uL (130-400); RED BLOOD COUNT 3.58 M/uL (4.2-5.4); WHITE BLOOD COUNT 5.28 K/uL (4.8-10.8)
[2017-02-27 06:47] LABS: BUN/CREATININE RATIO 18.4 (10-20); CALCIUM 9.2 mg/dl (8.5-10.1); CREATININE 1.3 mg/dl (0.60-1.20); POTASSIUM 3.7 mmol/L (3.5-5.1)
[2017-02-27 07:10] VITALS: PULSE 81; O2SAT 92
[2017-02-27 07:35] VITALS: BP 113/65; PULSE 84; TEMP 37.1; O2SAT 92
[2017-02-27] MEDS: RANITIDINE HCL 150 MG TAB PO SCH (08:06)
[2017-02-27] MEDS: LACTOBACILLUS ACIDOPHILUS (FLORANEX) TAB PO SCH (08:06)
[2017-02-27] MEDS: ATORVASTATIN 10 MG TAB PO SCH (08:06)
[2017-02-27] MEDS: AMIODARONE 200 MG TAB PO SCH (08:06)
[2017-02-27] MEDS: CHOLECALCIFEROL 1000 INTER.UNIT TAB PO SCH (08:06)
[2017-02-27] MEDS: FUROSEMIDE 40 MG TAB PO SCH (08:06)
[2017-02-27] MEDS: PANTOprazole SOD 40 MG TAB PO SCH (08:07)
[2017-02-27] MEDS: MICONAZOLE NITRATE 2% CR 30 GM TUBE EXT SCH (08:07)
[2017-02-27] MEDS: ARTIFICIAL TEARS OP SOLN OPB SCH ×2 (08:07)
[2017-02-27] MEDS: ASPIRIN 81 MG CHEW PO SCH (08:09)
[2017-02-27] MEDS: ALPRAZOLAM 0.5 MG TAB PO SCH (08:10)
[2017-02-27] MEDS ORDERED: CEPH500C PO (09:17)
[2017-02-27] MEDS ORDERED: LCTX PO (09:17)
--- NOTE | 2017-02-27 09:21 | Discharge Instructions ---
Discharge Instructions Date of Service Feb 27, 2017. Admission Reason for Admission: Sirs (Systemic Inflammatory Response System) Discharge Discharge Diagnosis / Problem: UTI with sepsis, no shock Discharge Goals Goal(s): Decrease discomfort, Improve function Activity Recommendations Activity Level: Assistance Required Lifting Limitations: none Exercise/Sports Limitations: as tolerated Shower/Bathe: no limitations . Additional Information Patient informed of condition: Yes Advance Directives: Yes DNR: Yes Level of Care: Skilled Communicable Disease: No Prognosis: Stable Oxygen at (LPM): no Abreu Catheter: No Instructions / Follow-Up Instructions / Follow-Up Medications: - KEFLEX: 500mg twice a day for 7 more days - LACTOBACILLUS: probiotics, take for 7 more days while on Keflex, really helped diarrhea while inpatient Sepsis, suspected source is UTI: in the past, cultures grew out Proteus, no growth on this admission with two separate cultures responded well to Zosyn initially and then changed to Rocephin no fever, normal WBC, vitals stable (hypotensive initially) will d/c on 7 more days of Keflex Diarrhea: likely due to antibiotics use, C diff and stool culture negative, responded well to probiotic, continue this while on antibiotics FOLLOW UP - physician at [facility] this week Current Hospital Diet Patient's current hospital diet: AHA Diet (Heart Healthy) Discharge Diet Recommended Diet: AHA Diet (Heart Healthy) Pending Studies Studies pending at discharge: no Physician Orders On Transfer POLST Discussion: Not Applicable Laboratory Results Hemoglobin A1c Test 02/24/17 06:48 Range/Units Estimated Average Glucose 157 mg/dl Hemoglobin A1c 7.1 H 4.5-5.6 % Lipid Panel Test 02/24/17 06:48 Range/Units Triglycerides Level 131 0-150 mg/dl Cholesterol Level 112 0-200 mg/dl HDL Cholesterol 41 mg/dl Cholesterol/HDL Ratio 2.7 LDL Cholesterol, Calculated 45 mg/dl Medical Emergencies . Who to Call and When: Medical Emergencies: If at any time you feel your situation is an emergency, please call 911 immediately. . Non-Emergent Contact Non-Emergency issues call your: Primary Care Provider Call Non-Emergent contact if: you have any medication questions . . "Provider Documentation" section prepared by Mikey Mata. . Core Measure Problem Core Measures: None [place] Drug Monitoring Program Search Results: no issues identified
== END 2017-02-27 12:18 | DRG 871 ==
LOC: EDBD 12:13 → C.EDB 12:14 → C.2T 15:15 → ENRESERV 15:36 → C.4E 02-25 18:18
PROVIDERS: ADMIT Internal Medicine; ATTEND Internal Medicine Sports Medicine
DX: A41.9 Sepsis, unspecified organism (principal); J69.0 Pneumonitis due to inhalation of food and vomit; I50.32 Chronic diastolic (congestive) heart failure; I13.0 Hypertensive heart and chronic kidney disease with heart failure and stage 1 through stage 4 chronic kidney disease, or unspecified chronic kidney disease; G82.20 Paraplegia, unspecified; N39.0 Urinary tract infection, site not specified; K56.7 Ileus, unspecified; Z68.41 Body mass index [BMI] 40.0-44.9, adult; N18.3 Chronic kidney disease, stage 3 (moderate); E78.5 Hyperlipidemia, unspecified; K21.9 Gastro-esophageal reflux disease without esophagitis; I25.10 Atherosclerotic heart disease of native coronary artery without angina pectoris; G47.33 Obstructive sleep apnea (adult) (pediatric); E66.01 Morbid (severe) obesity due to excess calories; E03.9 Hypothyroidism, unspecified; I48.0 Paroxysmal atrial fibrillation; M48.061 Spinal stenosis, lumbar region without neurogenic claudication; B00.9 Herpesviral infection, unspecified; R32 Unspecified urinary incontinence; E55.9 Vitamin D deficiency, unspecified; R19.7 Diarrhea, unspecified; Z66 Do not resuscitate; Z79.01 Long term (current) use of anticoagulants; Z79.82 Long term (current) use of aspirin; Z79.899 Other long term (current) drug therapy; Z86.73 Personal history of transient ischemic attack (TIA), and cerebral infarction without residual deficits; Z95.1 Presence of aortocoronary bypass graft; Z99.3 Dependence on wheelchair

== ENCOUNTER → 2017-03-04 | Outpatient (CLI) | payer OTHER ==
[~2017-03-04] MED LIST changes: +ALPR-411 PO; -ALPR0.5T PO; -ALPR1TAB2 PO; +AMIO200T4 PO; -CALCTAB7 PO; +CEPH500C PO; -CMD2 PO; -CRAN1CAP15 PO; +CRANCAP4 PO; -CRD200 PO; +DIPH1TAB87 PO; -ISOS30TA3 PO; +LCTX PO; -LVQ750 PO; +MICO12CR; +WARF3TAB6 PO; -XPNINS1255 INH
[2017-03-04 08:49] LABS: INR 1.9 (0.9-1.1); PROTHROMBIN TIME (PATIENT) 21.4 SECONDS (9.0-12.0)
== END ==
LOC: C.LABCC 08:11
PROVIDERS: ATTEND Internal Medicine
DX: I48.91 Unspecified atrial fibrillation (principal)

== ENCOUNTER 2017-03-18 11:00 | Observation (INO) | payer OTHER ==
[~2017-03-18] VITALS: Ht 154.9 cm; Wt 108.9 kg
[~2017-03-18 11:00] MED LIST changes: -CEPH500C2 PO; -FRS/40 PO; -KETO2SHA TOP; -METO25TA56 PO
[2017-03-18] MEDS ORDERED: CEPH500C2 PO (11:37)
[2017-03-18] MEDS ORDERED: FRS/40 PO (11:37)
[2017-03-18] MEDS ORDERED: METO25TA56 PO ×2 (11:37)
[2017-03-18] MEDS ORDERED: KETO2SHA TOP ×2 (11:37)
--- NOTE | 2017-03-18 11:40 | EMERGENCY ROOM VISIT NOTE ---
History Report prepared by Lynn: Christy Gerber Under the Supervision of: Dr. Deb Freeman M.D. First contact with patient: 11:01 Stated Complaint: CONFUSION/LETHARGIC History of Present Illness The patient is a 81 year old female who presents to the Emergency Room with complaints of a sudden unresponsive episode that occurred prior to arrival. Per nursing staff, the patient arrives via ALS from [facility]. Nursing staff reports that the patient was found unresponsive today at the correction. They note that the patient was recently evaluated in the hospital for sepsis. The patient reports that she became short of breath last night. She states that she always wears 2 liters of nasal cannula oxygen. The patient reports a history of chronic kidney disease. She reports normal appetite and fluid intake. Source of History: patient Onset: prior to arrival Position: other (global) Quality: other (unresponsiveness) Timing: other (sudden) Associated Symptoms: + SOB Review of Systems See HPI for pertinent positives & negatives. A total of 10 systems reviewed and were otherwise negative. Past Medical & Surgical Medical Problems: (1) LUIS (acute kidney injury) (2) Altered mental status (3) CHF (congestive heart failure) (4) CKD (chronic kidney disease), stage III (5) Coronary artery disease (6) Degenerative joint disease (7) Diverticular disease of colon (8) Dyslipidemia (9) Essential tremor (10) GERD (gastroesophageal reflux disease) (11) History of transient ischemic attack (12) Hypertension (13) Hypotension (14) Hypoxia (15) Osteoporosis (16) Recurrent herpes simplex (17) SIRS (systemic inflammatory response syndrome) (18) Spinal stenosis of lumbar region Surgical Problems: (1) Status post coronary artery bypass grafting Family History Hypertension Social History Smoking Status: Never Smoker Alcohol Use: none Drug Use: none Marital Status: single Housing Status: correction Occupation Status: retired Current/Historical Medications Scheduled Alprazolam (Xanax), 0.5 MG PO BID Amiodarone Hcl (Cordarone), 200 MG PO DAILY Aspirin (Aspirin Chewable), 81 MG PO QAM Atorvastatin (Lipitor), 10 MG PO DAILY Cephalexin Monohydrate (Keflex), 500 MG PO BID Cholecalciferol (Vitamin D), 2,000 UNITS PO QAM Cranberry-Vitamin C-Vitamin E (Cranberry Plus Vitamin C 4200-20-3 mg-Unit), 1 TAB PO DAILY Docusate Sodium (Docusate Sodium), 2 CAP PO HS Furosemide (Lasix), 40 MG PO BID Gabapentin (Gabapentin), 300 MG PO Q8 Guaifenesin Ext Rel (Mucinex Ext Rel), 1,200 MG PO Q12 Ipratropium [place] (Ipratropium [place]), 0.5 MG INH Q6H Ketoconazole (Topical) (Ketoconazole), 1 APPLN TOP QPM Lactobacillus Acidophilus (Floranex), 4 TAB PO TIDM Levothyroxine Sodium (Synthroid), 137 MCG PO DAILY Metoprolol Tartrate (Lopressor) (Lopressor), 12.5 MG PO BID Pantoprazole (Protonix), 40 MG PO DAILY Polyethylene Glycol-Propylene (Systane), 1 DROPS OPB DAILY Potassium Chloride (Micro-K Ext Rel), 10 MEQ PO DAILY Ranitidine Hcl (Zantac), 150 MG PO BID Valacyclovir Hcl (Valtrex), 1 GM PO QAM Warfarin Sod (Jantoven), 3 MG PO DAILY Scheduled PRN Acetaminophen (Tylenol), 650 MG PO BID PRN for Pain or Fever Diphenhydramine Hcl (Benadryl Allergy), 25 MG PO Q8 PRN for Itching Allergies Coded Allergies: Valproic Acid and Related (Verified Allergy, Mild, Depakote,face flushing. , 03/18/17) Cortisone (Verified Adverse Reaction, Mild, Cortisone shot, face flushing. , 03/18/17) Physical Exam Vital Signs Date Time Temp Pulse Resp B/P (MAP) Pulse Ox O2 Delivery O2 Flow Rate FiO2 03/18/17 13:51 36.8 66 19 123/69 99 Nasal Cannula 2.0 03/18/17 13:31 36.8 03/18/17 13:19 65 03/18/17 12:58 99 18 102/48 97 Nasal Cannula 2.0 03/18/17 11:27 96 Nasal Cannula 2.0 03/18/17 11:22 95 Nasal Cannula 2.0 03/18/17 11:16 95 Room Air 03/18/17 11:11 69 03/18/17 11:08 36.8 76 20 128/55 92 Nasal Cannula 2.0 Physical Exam Vital signs reviewed. General: Chronically ill appearing female, in no significant distress. Nasal cannula oxygen in place. HEENT: No scleral icterus, PERRLA, dry mucous membranes, neck supple. Atraumatic. Cardiovascular: Regular rate and rhythm, no extra sounds. Pulmonary: Minimal air exchange in bilateral lung nicholas with crackles throughout. Abdomen: Obese. Soft, nontender, nondistended, positive bowel sounds. Rectal: Guaiac positive melanotic stool, normal mucosa Musculoskeletal: Atrophic lower extremities, no peripheral edema. Neurologic: Patient awake alert and oriented x 3, answers "2016" but easily corrected. equal strength in upper extremities, paraplegic, waist down. Cranial nerves 2 through 12 grossly intact. Skin: Warm, dry, no rash Medical Decision & Procedures ER Provider Diagnostic Interpretation: Radiology results as stated below per my review and radiologist interpretation: HEAD WITHOUT CONTRAST (CT) CLINICAL HISTORY: 81 years-old Female with AMS. Acute altered mental status with confusion. TECHNIQUE: Multiple axial CT images of the head were obtained without contrast. A dose lowering technique was utilized adhering to the principles of ALARA. CT DOSE: 537.48 mGy.cm COMPARISON: Head CT 02/23/2017. FINDINGS: No acute intracranial hemorrhage, midline shift, intracranial mass, hydrocephalus, territorial ischemia or abnormal extra-axial collection. Mild to moderate atrophy. Chronic microvascular ischemic changes. The calvarium is intact. Left mastoid air cells are nearly completely opacified. Fluid is also noted within the left middle ear cavity. Trace right mastoid effusion. Paranasal sinuses are generally clear. Soft tissues are unremarkable. Prior bilateral cataract repair. IMPRESSION: 1. No acute intracranial abnormality. 2. Large left and small right mastoid effusions with fluid also noted within the left middle ear cavity. The above report was generated using voice recognition software. It may contain grammatical, syntax or spelling errors. Electronically signed by: Rick Rutledge M.D. 03/18/2017 12:42 PM Dictated Date/Time: 03/18/2017 12:40 PM CHEST ONE VIEW PORTABLE HISTORY: 81 years-old Female SOB, hypoxia acute shortness of breath COMPARISON: Chest radiograph 02/24/2017 TECHNIQUE: Portable AP view of the chest FINDINGS: Cardiac silhouette is again moderately enlarged. Atherosclerosis of the aorta. Prior median sternotomy. Lungs are hypoinflated without pneumothorax. There are small bilateral pleural effusions with hazy bibasilar opacities, pulmonary vascular congestion and interstitial coarsening. Bones of the chest appear grossly intact. IMPRESSION: 1. Cardiomegaly with mild pulmonary edema. 2. Small bilateral pleural effusions with bibasilar opacities suggesting atelectasis or less likely pneumonia. The above report was generated using voice recognition software. It may contain grammatical, syntax or spelling errors. Electronically signed by: Rick Rutledge M.D. 03/18/2017 12:25 PM Dictated Date/Time: 03/18/2017 12:24 PM Laboratory Results Test 03/18/17 00:00 03/18/17 11:11 03/18/17 11:55 03/18/17 12:41 Stool Occult Blood POSITIVE (NEGATIVE) Urine Color YELLOW Urine Appearance CLEAR (CLEAR) Urine pH 5.0 (4.5-7.5) Urine Specific [place] 1.022 (1.000-1.030) Urine Protein NEG (NEG) Urine Glucose (UA) NEG (NEG) Urine Ketones NEG (NEG) Urine Occult Blood 3+ (NEG) Urine Nitrite NEG (NEG) Urine Bilirubin NEG (NEG) Urine Urobilinogen NEG (NEG) Urine Leukocyte Esterase TRACE (NEG) Urine WBC (Auto) 1-5 /hpf (0-5) Urine RBC (Auto) 5-10 /hpf (0-4) Urine Hyaline Casts (Auto) 1-5 /lpf (0-5) Urine Epithelial Cells (Auto) >30 /lpf (0-5) Urine Bacteria (Auto) 4+ (NEG) Total Bilirubin 0.5 mg/dl (0.2-1) Direct Bilirubin 0.2 mg/dl (0-0.2) Aspartate Amino Transf (AST/SGOT) 23 U/L (15-37) Alanine Aminotransferase (ALT/SGPT) 22 U/L (12-78) Alkaline Phosphatase 60 U/L (45-117) Total Creatine Kinase 36 U/L (26-192) Creatine Kinase MB 1.1 ng/ml (0.5-3.6) Creatine Kinase MB Ratio 3.1 (0-3.0) Pro-B-Type Natriuretic Peptide 2654 pg/ml (0-1800) Total Protein 7.9 gm/dl (6.4-8.2) Albumin 3.1 gm/dl (3.4-5.0) Bedside Troponin I 0.050 ng/ml (0-0.045) Test 03/18/17 14:11 Activated Partial Thromboplast Time 41.0 SECONDS (21.0-31.0) Partial Thromboplastin Ratio 1.6 Date/Time Source Procedure Growth Status 03/18/17 00:00 Stool C.difficile Toxin B Gene (PCR) - Final No C. difficile toxin B gene detected Complete Laboratory results per my review. Medications Administered Medications (Trade) Dose Ordered Sig/Koko Route Start Time Stop Time Status Last Admin Dose Admin Furosemide (Lasix Inj) 40 mg NOW STAT IV 03/18/17 13:15 03/18/17 13:17 DC 03/18/17 13:48 40 MG Sodium Chloride 1,000 ml @ 100 mls/hr Q10H IV 03/18/17 14:15 04/17/17 14:14 03/20/17 07:36 100 MLS/HR ECG Indication: altered mental status Rate (beats per minute): 62 Rhythm: sinus rhythm Findings: 1st degree AV block, other (poor quality baseline for interpretation , diffuse T wave flattening, low voltage) Comparison ECG Date: 02/23/17 Change: When compared to EKG done on 02/23/17, T wave inversions are less prominent than previously no other significant changes. ED Course 1122: Past medical records reviewed. The patient was evaluated in room B7. A complete history and physical examination was performed. 1315: Ordered Lasix Inj 40 mg IV. 1336: I reevaluated the patient and she is resting. I discussed the test results with her and I discussed the treatment plan. She verbalized complete understanding and agreement. She will be evaluated for further treatment. I additionally performed a rectal exam at this time. See physical exam for further detail. 1334: I discussed the patients case with Dr. M[place] [facility] He is going to evaluate the patient for further treatment. Medical Decision Differential diagnosis: Etiologies such as infections, reactive airway disease, pneumonia, pneumothorax , COPD, CHF, cardiac ischemia, pulmonary embolism, musculoskeletal, gastrointestinal, as well as others were entertained. This pt was evaluated and appeared to be in no distress. IV access was obtained and lab work was drawn. Pt was placed on the athletic monitor. CXR reveals mild pulmonary edema. Pt was given 40 mg of IV lasix. Lab work reveals anemia, more significant than previous. Pt was type and crossed for 2 units. She is guaiac positive. INR was added to labs. Head CT was performed and is as above. Pt case was d/w the hospitalist service for further management. I did discuss blood transfusion with pt, she agreed. POA per correction was unable to be reached. Medication Reconcilliation Current Medication List: was personally reviewed by me Blood Pressure Screening Patient's blood pressure: Normal blood pressure Blood pressure disposition: Did not require urgent referral Consults Time Called: 1331 Consulting Physician: ANALY An Returned Call: [phone] I discussed the patients case with ANALY Tabor. He is going to evaluate the patient for further treatment. Impression Primary Impression: GI bleed Additional Impressions: Anemia Current use of retirement anticoagulation Scribe Attestation The scribe's documentation has been prepared under my direction and personally reviewed by me in its entirety. I confirm that the note above accurately reflects all work, treatment, procedures, and medical decision making performed by me. Departure Information Dispostion Being Evaluated By Hospitalist [place]errals [place] ([place]) Problem Qualifiers
[2017-03-18 12:14] LABS: BASO % 0.3 %; BASO ABS # 0.01 K/uL (0-0.2); EOS % 4.4 %; HEMATOCRIT 25.7 % (37-47); LYMPH ABS # 0.96 K/uL (1.2-3.4); MEAN CELL VOLUME 95.2 fL (80-100); MEAN CORPUSCULAR HEMOGLOBIN 28.5 pg (25-34); MEAN PLATELET VOLUME 9.8 fL (7.4-10.4); MONO % 19.5 %; NEUT % 50.8 %; PLATELET COUNT 188 K/uL (130-400); WHITE BLOOD COUNT 3.84 K/uL (4.8-10.8)
[2017-03-18 12:16] LABS: URINE APPEARANCE CLEAR (CLEAR); URINE BILIRUBIN NEG (NEG); URINE COLOR YELLOW; URINE EPITHELIAL CELL AUTO >30 /lpf (0-5); URINE NITRITE NEG (NEG); URINE SPECIFIC GRAVITY 1.022 (1.000-1.030); UROBILINOGEN NEG (NEG); ZZURINE CULT IF INDIC CATH YES
[2017-03-18 12:20] LABS: MANUAL MICROSCOPIC REQUIRED? NO; REVIEW REQ? NO
--- NOTE | 2017-03-18 12:27 | DIAGNOSTIC IMAGING REPORT ---
CHEST ONE VIEW PORTABLE HISTORY: 81 years-old Female SOB, hypoxia acute shortness of breath COMPARISON: Chest radiograph 02/24/2017 TECHNIQUE: Portable AP view of the chest FINDINGS: Cardiac silhouette is again moderately enlarged. Atherosclerosis of the aorta. Prior median sternotomy. Lungs are hypoinflated without pneumothorax. There are small bilateral pleural effusions with hazy bibasilar opacities, pulmonary vascular congestion and interstitial coarsening. Bones of the chest appear grossly intact. IMPRESSION: 1. Cardiomegaly with mild pulmonary edema. 2. Small bilateral pleural effusions with bibasilar opacities suggesting atelectasis or less likely pneumonia. The above report was generated using voice recognition software. It may contain grammatical, syntax or spelling errors. Electronically signed by: Rick Rutledge M.D. 03/18/2017 12:25 PM Dictated Date/Time: 03/18/2017 12:24 PM
[2017-03-18 12:39] LABS: ANISOCYTOSIS PRESENT; COMPLETE YES; HYPOCHROMIA PRESENT; POLYCHROMASIA 1+
[2017-03-18 12:40] LABS: ALT/SGPT 22 U/L (12-78); BLOOD UREA NITROGEN 63 mg/dl (7-18); BUN/CREATININE RATIO 33.3 (10-20); CALCIUM 9.6 mg/dl (8.5-10.1); CARBON DIOXIDE 27 mmol/L (21-32); CHLORIDE 107 mmol/L (98-107); CREATININE 1.88 mg/dl (0.60-1.20); GLUCOSE 101 mg/dl (70-99); MAGNESIUM 2.6 mg/dl (1.8-2.4); POTASSIUM 4.8 mmol/L (3.5-5.1); SODIUM 141 mmol/L (136-145)
--- NOTE | 2017-03-18 12:43 | DIAGNOSTIC IMAGING REPORT ---
HEAD WITHOUT CONTRAST (CT) CLINICAL HISTORY: 81 years-old Female with AMS. Acute altered mental status with confusion. TECHNIQUE: Multiple axial CT images of the head were obtained without contrast. A dose lowering technique was utilized adhering to the principles of ALARA. CT DOSE: 537.48 mGy.cm COMPARISON: Head CT 02/23/2017. FINDINGS: No acute intracranial hemorrhage, midline shift, intracranial mass, hydrocephalus, territorial ischemia or abnormal extra-axial collection. Mild to moderate atrophy. Chronic microvascular ischemic changes. The calvarium is intact. Left mastoid air cells are nearly completely opacified. Fluid is also noted within the left middle ear cavity. Trace right mastoid effusion. Paranasal sinuses are generally clear. Soft tissues are unremarkable. Prior bilateral cataract repair. IMPRESSION: 1. No acute intracranial abnormality. 2. Large left and small right mastoid effusions with fluid also noted within the left middle ear cavity. The above report was generated using voice recognition software. It may contain grammatical, syntax or spelling errors. Electronically signed by: Rick Rutledge M.D. 03/18/2017 12:42 PM Dictated Date/Time: 03/18/2017 12:40 PM
[2017-03-18 12:45] LABS: ALKALINE PHOSPHATASE 60 U/L (45-117); AST/SGOT 23 U/L (15-37); CKMB/CK RATIO 3.1 (0-3.0)
[2017-03-18] MEDS ORDERED: FUROSEMIDE 40 MG/4 ML VIAL IV STA (13:15)
[2017-03-18] MEDS ORDERED: ONDANSETRON INJ 2 MG/ML 2 ML VIAL IV PRN (14:15)
[2017-03-18] MEDS ORDERED: ACETAMINOPHEN 325 MG TAB PO PRN (14:15)
[2017-03-18] MEDS ORDERED: ENOXAPARIN 40 MG/0.4 ML SYR SQ SCH (14:15)
[2017-03-18 14:42] LABS: INR 2.7 (0.9-1.1); PARTIAL THROMBOPLASTIN RATIO 1.6; PROTHROMBIN TIME (PATIENT) 28.1 SECONDS (9.0-12.0)
[2017-03-18] MEDS ORDERED: IV FLUIDS COMPLETED PRN (14:45)
[2017-03-18 15:58] VITALS: BP 115/66; PULSE 64; TEMP 36.2; O2SAT 99
[2017-03-18] MEDS ORDERED: WARFARIN SOD 3 MG TAB PO SCH (16:00)
[2017-03-18] MEDS: SODIUM CHLORIDE 0.9% 1000ML 1,000 ML IV SCH (16:07)
[2017-03-18 16:27] VITALS: BP 115/66; PULSE 64; TEMP 36.2; O2SAT 99; BMI 49.8
[2017-03-18 17:07] VITALS: Ht 154.9 cm; Wt 108.9 kg
[2017-03-18] MEDS: ALPRAZOLAM 0.5 MG TAB PO SCH (20:28)
[2017-03-18] MEDS: RANITIDINE HCL 150 MG TAB PO SCH (20:28)
[2017-03-18] MEDS: GABAPENTIN 300 MG CAP PO SCH (20:28)
[2017-03-18] MEDS: METOPROLOL TARTRATE 25 MG TAB PO SCH (20:29)
[2017-03-18] MEDS ORDERED: PNEUMOCOCCAL POLYSACCHARIDES 25 MCG/0.5 ML VIAL/SYR IM. ONE (21:00)
[2017-03-18] MEDS ORDERED: PNEUMOCOCCAL ADMINISTRATION CHARGE ONE (21:00)
--- NOTE | 2017-03-18 23:06 | History and Physical ---
History & Physical Date & Time of Service: Mar 18, 2017 at 14:25 Chief Complaint: Confusion/Lethargic Primary Care Physician: Raffi Rollins M.D. History of Present Illness Source: patient, hospital records 81 yo female with history of paraplegia with below the waist paralysis, resides at [facility], h/o CKD, chronic diastolic HF, hypertension. Patient was recently admitted to [facility] [place] for 4 days from 02/23 to 02/27 for sepsis related to UTI. Treated with Rocephin and then discharged on Keflex for extended course. She had some loose stools with the antibiotics and was prescribed probiotics. Per the patient, she says she has felt well since her discharge, no new issues. She has been eating and drinking well, no pain, no dyspnea. This morning she was found to be unresponsive which was an acute change so she was sent to the ED for evaluation. Here in the ED her vitals were stable, afebrile. No leukocytosis. Her Hb was low at 7.7, was 10 on discharge two weeks ago. Her Cr was up to 1.88 and BUN in the 60's which are both higher than her baseline. In spring of last year her baseline Cr was 0.9. More recently it has been 1.4- 1.5 range. Again, when asked, the patient says her diet and oral intake have been normal. She is unsure if she has had any melena. Her stools have continued to be loose since discharge. CT head was normal and CXR showed some atelectasis. We were asked to admit patient for her altered mental status. Past Medical/Surgical History Medical Problems: (1) CKD (chronic kidney disease), stage III Status: Chronic (2) Coronary artery disease Status: Chronic (3) Degenerative joint disease Status: Chronic (4) Diverticular disease of colon Status: Chronic (5) Dyslipidemia Status: Chronic (6) Essential tremor Status: Chronic (7) GERD (gastroesophageal reflux disease) Status: Chronic (8) History of transient ischemic attack Status: Chronic (9) Hypertension Status: Chronic (10) Osteoporosis Status: Chronic (11) Recurrent herpes simplex Status: Chronic (12) Spinal stenosis of lumbar region Status: Chronic Surgical Problems: (1) Status post coronary artery bypass grafting Permanent Comment: x 5 1997 Status: Chronic Family History Hypertension Social History Smoking Status: Never Smoker Drug Use: none Marital Status: single Housing status: snf Occupational Status: retired Immunizations History of Influenza Vaccine: Unknown Influenza Vaccine Date: Jan 09, 2013 History of Tetanus Vaccine?: Unknown History of Pneumococcal: Unknown History of Hepatitis B Vaccine: Unknown Multi-Drug Resistant Organisms History of MDRO: No Allergies Coded Allergies: Valproic Acid and Related (Verified Allergy, Mild, Depakote,face flushing. , 03/18/17) Cortisone (Verified Adverse Reaction, Mild, Cortisone shot, face flushing. , 03/18/17) Home Medications Scheduled Alprazolam (Xanax), 0.5 MG PO BID Amiodarone Hcl (Cordarone), 200 MG PO DAILY Aspirin (Aspirin Chewable), 81 MG PO QAM Atorvastatin (Lipitor), 10 MG PO DAILY Cephalexin Monohydrate (Keflex), 500 MG PO BID Cholecalciferol (Vitamin D), 2,000 UNITS PO QAM Cranberry-Vitamin C-Vitamin E (Cranberry Plus Vitamin C 4200-20-3 mg-Unit), 1 TAB PO DAILY Docusate Sodium (Docusate Sodium), 2 CAP PO HS Furosemide (Lasix), 40 MG PO BID Gabapentin (Gabapentin), 300 MG PO Q8 Guaifenesin Ext Rel (Mucinex Ext Rel), 1,200 MG PO Q12 Ipratropium [place] (Ipratropium [place]), 0.5 MG INH Q6H Ketoconazole (Topical) (Ketoconazole), 1 APPLN TOP QPM Lactobacillus Acidophilus (Floranex), 4 TAB PO TIDM Levothyroxine Sodium (Synthroid), 137 MCG PO DAILY Metoprolol Tartrate (Lopressor) (Lopressor), 12.5 MG PO BID Pantoprazole (Protonix), 40 MG PO DAILY Polyethylene Glycol-Propylene (Systane), 1 DROPS OPB DAILY Potassium Chloride (Micro-K Ext Rel), 10 MEQ PO DAILY Ranitidine Hcl (Zantac), 150 MG PO BID Valacyclovir Hcl (Valtrex), 1 GM PO QAM Warfarin Sod (Jantoven), 3 MG PO DAILY Scheduled PRN Acetaminophen (Tylenol), 650 MG PO BID PRN for Pain or Fever Diphenhydramine Hcl (Benadryl Allergy), 25 MG PO Q8 PRN for Itching Review of Systems Constitutional: + weakness, No fever, No chills, No sweats, No weight loss, No fatigue, No problem reported Eyes: No worsening of vision, No eye pain, No redness, No discharge, No diplopia, No problem reported ENT: No hearing loss, No unusual epistaxis, No nasal symptoms, No sore throat, No tinnitus, No dental problems, No trouble swallowing, No problem reported Respiratory: + dyspnea on exertion, No cough, No sputum, No wheezing, No shortness of breath, No dyspnea at rest, No hemoptysis, No problem reported Cardiovascular: + edema (chronic, stable), No chest pain, No orthopnea, No PND , No claudication, No palpitations, No problem reported Abdomen: + diarrhea (cannot describe), No pain, No nausea, No vomiting, No constipation, No GI bleeding, No problem reported Musculoskeletal: No joint pain, No muscle pain, No swelling, No calf pain, No problem reported Genitourinary - Female: No dysuria, No urinary frequency, No urinary urgency, No urinary incontinence, No urinary retention, No hematuria Neurologic: + paralysis (below the waist), No memory loss, No weakness, No numbness/tingling, No vertigo, No balance problems, No problem reported Psychiatric: No depression symptoms, No anhedonism, No anxiety, No insomnia, No substance abuse, No problem reported Endocrine: No fatigue, No excessive thirst, No excessive urination, No problem reported Hematologic / Lymphatic: No abnormal bleeding/bruising, No clotting problems, No swollen lymph nodes, No night sweats, No problem reported Integumentary: No rash, No itch, No new/changing skin lesions, No color change , No bleeding, No problem reported Allergic / Immunologic: No environmental allergies, No seasonal allergies, No pet sensitivities, No food allergies, No hives, No frequent infections, No poor healing, No prolonged convalescence, No problem reported Physical Exam Vital Signs Date Time Temp Pulse Resp B/P (MAP) Pulse Ox O2 Delivery O2 Flow Rate FiO2 03/18/17 13:51 36.8 66 19 123/69 99 Nasal Cannula 2.0 03/18/17 13:31 36.8 03/18/17 13:19 65 03/18/17 12:58 99 18 102/48 97 Nasal Cannula 2.0 03/18/17 11:27 96 Nasal Cannula 2.0 03/18/17 11:22 95 Nasal Cannula 2.0 03/18/17 11:16 95 Room Air 03/18/17 11:11 69 03/18/17 11:08 36.8 76 20 128/55 92 Nasal Cannula 2.0 General Appearance: no apparent distress, + obese Head: normocephalic, atraumatic Eyes: normal inspection, EOMI, sclerae normal ENT: normal ENT inspection, hearing grossly normal, pharynx normal Neck: supple, no adenopathy, no JVD, trachea midline Respiratory/Chest: chest non-tender, lungs clear, no respiratory distress, no accessory muscle use, + decreased breath sounds (bases) Cardiovascular: regular rate, rhythm, no gallop, no JVD, no murmur, normal peripheral pulses Abdomen/GI: normal bowel sounds, non tender, soft, no organomegaly Back: normal inspection, no CVA tenderness, no muscle spasm, normal range of motion Extremities/Musculoskelatal: no calf tenderness, normal capillary refill, no pedal edema, normal range of motion Neurologic/Psych: clinical services professional II-XII nml as tested, alert, normal mood/affect, normal reflexes, oriented x 3, + motor weakness (lower extremity paralysis) Skin: normal color, warm/dry, no rash Lymphatic: no adenopathy Diagnostics Laboratory Results Results Past 24 Hours Test 03/18/17 11:11 03/18/17 11:55 03/18/17 12:41 03/18/17 14:11 Range/Units Urine Color YELLOW Urine Appearance CLEAR CLEAR Urine pH 5.0 4.5-7.5 Urine Specific [place] 1.022 1.000-1.030 Urine Protein NEG NEG Urine Glucose (UA) NEG NEG Urine Ketones NEG NEG Urine Occult Blood 3+ NEG Urine Nitrite NEG NEG Urine Bilirubin NEG NEG Urine Urobilinogen NEG NEG Urine Leukocyte Esterase TRACE NEG Urine WBC (Auto) 1-5 0-5 /hpf Urine RBC (Auto) 5-10 0-4 /hpf Urine Hyaline Casts (Auto) 1-5 0-5 /lpf Urine Epithelial Cells (Auto) >30 0-5 /lpf Urine Bacteria (Auto) 4+ NEG White Blood Count 3.84 4.8-10.8 K/uL Red Blood Count 2.70 4.2-5.4 M/uL Hemoglobin 7.7 12.0-16.0 g/dL Hematocrit 25.7 37-47 % Mean Corpuscular Volume 95.2 80-100 fL Mean Corpuscular Hemoglobin 28.5 25-34 pg Mean Corpuscular Hemoglobin Concent 30.0 32-36 g/dl Platelet Count 188 130-400 K/uL Mean Platelet Volume 9.8 7.4-10.4 fL Neutrophils (%) (Auto) 50.8 % Lymphocytes (%) (Auto) 25.0 % Monocytes (%) (Auto) 19.5 % Eosinophils (%) (Auto) 4.4 % Basophils (%) (Auto) 0.3 % Neutrophils # (Auto) 1.95 1.4-6.5 K/uL Lymphocytes # (Auto) 0.96 1.2-3.4 K/uL Monocytes # (Auto) 0.75 0.11-0.59 K/uL Eosinophils # (Auto) 0.17 0-0.5 K/uL Basophils # (Auto) 0.01 0-0.2 K/uL RDW Standard Deviation 76.5 36.4-46.3 fL RDW Coefficient of Variation 21.9 11.5-14.5 % Immature Granulocyte % (Auto) 0.0 % Immature Granulocyte # (Auto) 0.00 0.00-0.02 K/uL Polychromasia 1+ Hypochromasia PRESENT Anisocytosis PRESENT Sodium Level 141 136-145 mmol/L Potassium Level 4.8 3.5-5.1 mmol/L Chloride Level 107 98-107 mmol/L Carbon Dioxide Level 27 21-32 mmol/L Anion Gap 7.0 3-11 mmol/L Blood Urea Nitrogen 63 7-18 mg/dl Creatinine 1.88 0.60-1.20 mg/dl Estimated GFR () 28.9 Estimated GFR (Non- 25.0 BUN/Creatinine Ratio 33.3 10-20 Random Glucose 101 70-99 mg/dl Calcium Level 9.6 8.5-10.1 mg/dl Magnesium Level 2.6 1.8-2.4 mg/dl Total Bilirubin 0.5 0.2-1 mg/dl Direct Bilirubin 0.2 0-0.2 mg/dl Aspartate Amino Transf (AST/SGOT) 23 15-37 U/L Alanine Aminotransferase (ALT/SGPT) 22 12-78 U/L Alkaline Phosphatase 60 45-117 U/L Total Creatine Kinase 36 26-192 U/L Creatine Kinase MB 1.1 0.5-3.6 ng/ml Creatine Kinase MB Ratio 3.1 0-3.0 Pro-B-Type Natriuretic Peptide 2654 0-1800 pg/ml Total Protein 7.9 6.4-8.2 gm/dl Albumin 3.1 3.4-5.0 gm/dl Bedside Troponin I 0.050 0-0.045 ng/ml Diagnostic Radiology HEAD WITHOUT CONTRAST (CT) IMPRESSION: 1. No acute intracranial abnormality. 2. Large left and small right mastoid effusions with fluid also noted within the left middle ear cavity. other (bibasilar atelectasis) Normal EKG Impression Assessment and Plan 81 yo female with h/o paraplegia, CKD, CAD with CABG, recent admission for sepsis due to UTI, presents with acute change in mental status - Metabolic encephalopathy: at this time it is resolved, she is oriented multifactorial, could be anemia and LUIS on CKD will observe for any further changes - LUIS on CKD: Cr up to 1.88 and BUN 60 NSS at 100cc/hr, hold Lasix today, no significant edema on exam repeat BMP tomorrow hold nephrotoxins - Acute on chronic anemia: possibly due to slow GI bleed on Coumadin heme occult stools - POSITIVE hold on transfusion for now since Hb > 7.0 and BP stable patient cannot consent due to dementia, could not get a hold of family member check iron, vitamin b12, folate in the AM NPO after midnight, ask GI to evaluate tomorrow - Chronic diastolic HF: no signs of volume overload hold Lasix with LUIS, reassess volume status and renal function tomorrow - Paroxysmal atrial fibrillation: continue Amiodarone hold Coumadin due to heme positive stools and anemia INR 2.7 - Diarrhea: started last admission with antibiotic use will check C diff and stool culture 45 minutes spent on admission Level of Care Med/Surg Resuscitation Status FULL RESUSCITATION VTE Prophylaxis VTE Risk Assessment Done? Y/N: Yes Risk Level: High Given or contraindicated: Warfarin (Coumadin) Additional Copies To [place] [place]
[2017-03-18] MEDS ORDERED: MICONAZOLE NITRATE POWDER 43 GM EXT PRN (23:30)
[2017-03-18 23:32] VITALS: BP 135/80; PULSE 65; TEMP 36.3; O2SAT 95
[2017-03-19 02:16] LABS: HEMATOCRIT 24.3 % (37-47)
[2017-03-19] MEDS: SODIUM CHLORIDE 0.9% 1000ML 1,000 ML IV SCH ×3 (02:34→21:07)
[2017-03-19] MEDS: LEVOTHYROXINE 137 MCG TAB PO SCH (06:10)
[2017-03-19] MEDS: GABAPENTIN 300 MG CAP PO SCH ×3 (06:10→21:11)
[2017-03-19 07:28] VITALS: BP 103/56; PULSE 64; TEMP 36.3; O2SAT 98
[2017-03-19] MEDS: ALPRAZOLAM 0.5 MG TAB PO SCH ×2 (07:41→20:00)
[2017-03-19] MEDS: PANTOprazole SOD 40 MG TAB PO SCH (07:41)
[2017-03-19] MEDS: RANITIDINE HCL 150 MG TAB PO SCH ×2 (07:44→21:11)
[2017-03-19] MEDS: POTASSIUM CHLORIDE 10 MEQ TABCR PO SCH (07:45)
[2017-03-19] MEDS: AMIODARONE 200 MG TAB PO SCH (07:45)
[2017-03-19] MEDS: ASPIRIN 81 MG CHEW PO SCH (07:45)
[2017-03-19] MEDS: METOPROLOL TARTRATE 25 MG TAB PO SCH ×2 (07:46→21:10)
[2017-03-19] MEDS: ATORVASTATIN 10 MG TAB PO SCH (07:46)
[2017-03-19 08:00] VITALS: O2SAT 98
[2017-03-19 08:00] LABS: BASO % 0.5 %; BASO ABS # 0.02 K/uL (0-0.2); EOS % 4.4 %; HEMATOCRIT 24.2 % (37-47); LYMPH % 22.2 %; MEAN CELL VOLUME 95.7 fL (80-100); MEAN CORPUSCULAR HEMOGLOBIN 28.5 pg (25-34); MEAN CORPUSCULAR HGB CONC 29.8 g/dl (32-36); MEAN PLATELET VOLUME 9.3 fL (7.4-10.4); NEUT % 56.9 %; PLATELET COUNT 172 K/uL (130-400); RED BLOOD COUNT 2.53 M/uL (4.2-5.4); WHITE BLOOD COUNT 4.06 K/uL (4.8-10.8)
[2017-03-19 08:20] LABS: INR 2.9 (0.9-1.1); PROTHROMBIN TIME (PATIENT) 29.4 SECONDS (9.0-12.0)
[2017-03-19 08:24] LABS: ANISOCYTOSIS PRESENT; COMPLETE YES; HYPOCHROMIA PRESENT; POLYCHROMASIA 1+
[2017-03-19 08:32] LABS: BUN/CREATININE RATIO 32.7 (10-20); CALCIUM 8.8 mg/dl (8.5-10.1); CREATININE 1.91 mg/dl (0.60-1.20); MAGNESIUM 2.5 mg/dl (1.8-2.4); POTASSIUM 4.5 mmol/L (3.5-5.1)
[2017-03-19 08:38] LABS: FERRITIN 55.9 ng/ml (8.0-388.0)
[2017-03-19] MEDS: CEFAZOLIN IV 1,000 MG in SYRINGE 0 ML IV SCH ×2 (09:07→17:37)
--- NOTE | 2017-03-19 10:23 | Gastrointestinal Consultation ---
Gastrointestinal Consultation Date of Consultation: Mar 19, 2017 Attending Physician: Dr. Mata Consulting Physician: Dr. Delarosa/TATIANNA Becerril Reason for Consultation: Anemia and heme positive stool History of Present Illness Patient is a 81 year old female with a complex past medical history including atrial fibrillation on chronic anticoagulation therapy, chronic kidney disease, GERD, TIA, HTN, and spinal stenosis previously evaluated in our office one year ago for GERD, abdominal pain and nausea. At that time, the patient had already undergone outpatient evaluation with gall bladder work up, CT imaging, and UGI series. Patient was not agreeable to invasive GI work up at that time and was therefore treated with PPI therapy with some symptom improvement. Last office visit was in July of this year. Most recently, the patient was admitted last month with acute mental status changes in the setting of urosepsis. She was treated with antibiotic therapy at that time and subsequently developed loose stools. She continues to have some loose bowel movements although she has had a negative C diff during that admission. She was sent back to [facility] (where she resides) upon discharge. Patient was brought back to the ER yesterday after she was found unresponsive from review of records. On arrival, she was noted to be profoundly anemic with H&H of 7.7 and 25.7. Her hemoglobin last month was 10.1. Baseline BUN is approximately 25 but was noted to be 63 on admission. Her INR was 2.9 on Coumadin and she was heme positive. She did have another negative C diff toxin B during this admission, stool culture is pending. Patient is being treated with Protonix 40 mg daily. At present, she reports no abdominal pain or nausea or overt GIB. 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 CKD 2. CAD 3. DJD 4. Colonic diverticulosis 5. Dyslipidemia 6. GERD 7. Essential tremor 8. TIA 9. HTN 10. Osteoporosis 11. Herpes simplex 12. Spinal stenosis 13. UTI 14. Anxiety 15. Dementia Past Surgical History: 1. CABG 2. section Family History Hypertension Negative for GI malignancy or IBD. Social History Smoking Status: Never Smoker Alcohol Use: none Drug Use: none Marital Status: single Housing Status: snf Occupation Status: retired Allergies Coded Allergies: Valproic Acid and Related (Verified Allergy, Mild, Depakote,face flushing. , 03/18/17) Cortisone (Verified Adverse Reaction, Mild, Cortisone shot, face flushing. , 03/18/17) Current Medications Home Meds and Scripts Medications Dose Route/Sig Max Daily Dose Days Date Category Dose Instructions Ketoconazole (Ketoconazole (Topical)) 2 % Sha 1 Appln TOP QPM 03/18/17 Reported Keflex (Cephalexin Monohydrate) 500 Mg Cap 500 Mg PO BID 03/18/17 Reported Lasix (Furosemide) 40 Mg Tab 40 Mg PO BID 03/18/17 Reported Lopressor (Metoprolol Tartrate) 25 Mg Tab 12.5 Mg PO BID 03/18/17 Reported HOLD TILL 03/19 Floranex (Lactobacillus Acidophilus) 1 Tab Tab 4 Tab PO TIDM 7 02/27/17 Rx Benadryl Allergy (Diphenhydramine Hcl) 25 Mg Tab 25 Mg PO Q8 PRN 02/23/17 Reported Jantoven (Warfarin Sodium) 3 Mg Tab 3 Mg PO DAILY 02/23/17 Reported Cordarone (Amiodarone Hcl) 200 Mg Tab 200 Mg PO DAILY 02/23/17 Reported Xanax (Alprazolam) 0.5 Mg Tab 0.5 Mg PO BID 02/23/17 Reported Cranberry Plus Vitamin C 4200-20-3 mg-Unit (Cranberry-Vitamin C-Vitamin E) 1 Cap Cap 1 Tab PO DAILY 02/23/17 Reported Mucinex Ext Rel (Guaifenesin) 600 Mg Tabcr 1,200 Mg PO Q12 10 05/09/16 Rx Ipratropium [place] 0.5 Mg/2.5 Ml Nebu 0.5 Mg INH Q6H 10 05/09/16 Rx Systane (Polyethylene Glycol-Propylene) 1 Kendra Kendra 1 Drops OPB DAILY 05/01/16 Reported Micro-K Ext Rel (Potassium Chloride) 10 Meq Capcr 10 Meq PO DAILY 05/01/16 Reported Protonix (Pantoprazole) 40 Mg Tab 40 Mg PO DAILY 05/01/16 Reported Synthroid (Levothyroxine Sodium) 137 Mcg Tab 137 Mcg PO DAILY 05/01/16 Reported Docusate Sodium 100 Mg Cap 2 Cap PO HS 15 05/01/16 Reported Lipitor (Atorvastatin Calcium) 10 Mg Tab 10 Mg PO DAILY 05/01/16 Reported Valtrex (Valacyclovir Hcl) 1 Gm Tab 1 Gm PO QAM 02/23/15 Reported Zantac (Ranitidine Hcl) 150 Mg Tab 150 Mg PO BID 02/23/15 Reported Vitamin D (Cholecalciferol) 2,000 Unit Tab 2,000 Units PO QAM 02/23/15 Reported Aspirin Chewable (Aspirin) 81 Mg Chew 81 Mg PO QAM 02/23/15 Reported Gabapentin 300 Mg Cap 300 Mg PO Q8 02/03/15 Reported Tylenol (Acetaminophen) 325 Mg Tab 650 Mg PO BID PRN 02/12/13 Reported Review of Systems Constitutional: + fatigue, No fever, No chills Eyes: No problem reported ENT: No problem reported Respiratory: No problem reported Cardiac: No problem reported Abdomen: + see HPI Musculoskeletal: + problem reported (leg numbness) Female : No problem reported Neuro: No problem reported Psych: No problem reported Physical Exam Date Time Temp Pulse Resp B/P (MAP) Pulse Ox O2 Delivery O2 Flow Rate FiO2 03/19/17 08:00 98 Nasal Cannula 2.0 03/19/17 07:28 36.3 64 18 103/56 (72) 98 Nasal Cannula 2.0 03/19/17 00:10 Nasal Cannula 2.0 03/18/17 23:32 36.3 65 20 135/80 (98) 95 Nasal Cannula 2.0 03/18/17 16:27 36.2 64 20 115/66 99 Nasal Cannula 2.0 03/18/17 15:58 36.2 64 20 115/66 (82) 99 Room Air 03/18/17 15:25 36.8 66 19 146/76 97 03/18/17 14:59 66 19 146/76 97 Nasal Cannula 2.0 03/18/17 13:51 36.8 66 19 123/69 99 Nasal Cannula 2.0 03/18/17 13:31 36.8 03/18/17 13:19 65 03/18/17 12:58 99 18 102/48 97 Nasal Cannula 2.0 03/18/17 11:27 96 Nasal Cannula 2.0 03/18/17 11:22 95 Nasal Cannula 2.0 03/18/17 11:16 95 Room Air 03/18/17 11:11 69 03/18/17 11:08 36.8 76 20 128/55 92 Nasal Cannula 2.0 General Appearance: no apparent distress Eyes: EOMI ENT: hearing grossly normal Neck: supple Respiratory/Chest: + decreased breath sounds (bases) Cardiovascular: regular rate, rhythm Abdomen: normal bowel sounds, soft, + tenderness (epigastric) Extremities: + swelling Neurologic/Psych: alert, normal mood/affect Skin: warm/dry Laboratory Results Last 24 Hours Test 03/18/17 11:11 03/18/17 11:55 03/18/17 12:41 03/18/17 14:11 Urine Color YELLOW Urine Appearance CLEAR Urine pH 5.0 Urine Specific [place] 1.022 Urine Protein NEG Urine Glucose (UA) NEG Urine Ketones NEG Urine Occult Blood 3+ Urine Nitrite NEG Urine Bilirubin NEG Urine Urobilinogen NEG Urine Leukocyte Esterase TRACE Urine WBC (Auto) 1-5 /hpf Urine RBC (Auto) 5-10 /hpf Urine Hyaline Casts (Auto) 1-5 /lpf Urine Epithelial Cells (Auto) >30 /lpf Urine Bacteria (Auto) 4+ White Blood Count 3.84 K/uL Red Blood Count 2.70 M/uL Hemoglobin 7.7 g/dL Hematocrit 25.7 % Mean Corpuscular Volume 95.2 fL Mean Corpuscular Hemoglobin 28.5 pg Mean Corpuscular Hemoglobin Concent 30.0 g/dl Platelet Count 188 K/uL Mean Platelet Volume 9.8 fL Neutrophils (%) (Auto) 50.8 % Lymphocytes (%) (Auto) 25.0 % Monocytes (%) (Auto) 19.5 % Eosinophils (%) (Auto) 4.4 % Basophils (%) (Auto) 0.3 % Neutrophils # (Auto) 1.95 K/uL Lymphocytes # (Auto) 0.96 K/uL Monocytes # (Auto) 0.75 K/uL Eosinophils # (Auto) 0.17 K/uL Basophils # (Auto) 0.01 K/uL RDW Standard Deviation 76.5 fL RDW Coefficient of Variation 21.9 % Immature Granulocyte % (Auto) 0.0 % Immature Granulocyte # (Auto) 0.00 K/uL Polychromasia 1+ Hypochromasia PRESENT Anisocytosis PRESENT Sodium Level 141 mmol/L Potassium Level 4.8 mmol/L Chloride Level 107 mmol/L Carbon Dioxide Level 27 mmol/L Anion Gap 7.0 mmol/L Blood Urea Nitrogen 63 mg/dl Creatinine 1.88 mg/dl Estimated GFR () 28.9 Estimated GFR (Non- 25.0 BUN/Creatinine Ratio 33.3 Random Glucose 101 mg/dl Calcium Level 9.6 mg/dl Magnesium Level 2.6 mg/dl Total Bilirubin 0.5 mg/dl Direct Bilirubin 0.2 mg/dl Aspartate Amino Transf (AST/SGOT) 23 U/L Alanine Aminotransferase (ALT/SGPT) 22 U/L Alkaline Phosphatase 60 U/L Total Creatine Kinase 36 U/L Creatine Kinase MB 1.1 ng/ml Creatine Kinase MB Ratio 3.1 Pro-B-Type Natriuretic Peptide 2654 pg/ml Total Protein 7.9 gm/dl Albumin 3.1 gm/dl Bedside Troponin I 0.050 ng/ml Prothrombin Time 28.1 SECONDS Prothromb Time International Ratio 2.7 Activated Partial Thromboplast Time 41.0 SECONDS Partial Thromboplastin Ratio 1.6 Test 03/19/17 01:53 03/19/17 07:43 Hemoglobin 7.3 g/dL 7.2 g/dL Hematocrit 24.3 % 24.2 % White Blood Count 4.06 K/uL Red Blood Count 2.53 M/uL Mean Corpuscular Volume 95.7 fL Mean Corpuscular Hemoglobin 28.5 pg Mean Corpuscular Hemoglobin Concent 29.8 g/dl Platelet Count 172 K/uL Mean Platelet Volume 9.3 fL Neutrophils (%) (Auto) 56.9 % Lymphocytes (%) (Auto) 22.2 % Monocytes (%) (Auto) 16.0 % Eosinophils (%) (Auto) 4.4 % Basophils (%) (Auto) 0.5 % Neutrophils # (Auto) 2.31 K/uL Lymphocytes # (Auto) 0.90 K/uL Monocytes # (Auto) 0.65 K/uL Eosinophils # (Auto) 0.18 K/uL Basophils # (Auto) 0.02 K/uL RDW Standard Deviation 77.2 fL RDW Coefficient of Variation 22.0 % Immature Granulocyte % (Auto) 0.0 % Immature Granulocyte # (Auto) 0.00 K/uL Polychromasia 1+ Hypochromasia PRESENT Anisocytosis PRESENT Prothrombin Time 29.4 SECONDS Prothromb Time International Ratio 2.9 Sodium Level 138 mmol/L Potassium Level 4.5 mmol/L Chloride Level 106 mmol/L Carbon Dioxide Level 26 mmol/L Anion Gap 7.0 mmol/L Blood Urea Nitrogen 63 mg/dl Creatinine 1.91 mg/dl Est Creatinine Clear Calc Drug Dose 27.2 ml/min Estimated GFR () 28.4 Estimated GFR (Non- 24.5 BUN/Creatinine Ratio 32.7 Random Glucose 97 mg/dl Calcium Level 8.8 mg/dl Magnesium Level 2.5 mg/dl Iron Level 29 mcg/dl Total Iron Binding Capacity 427 mcg/dl Ferritin 55.9 ng/ml Impression Patient is a 81 year old female with a history of GERD, epigastric pain with nausea and atrial fibrillation on chronic anticoagulation therapy admitted with acute blood loss anemia and heme positive stool. Plan 1. Keep NPO for now. 2. EGD if consent can be obtained from SHAYY Aden. Did attempt to contact the POA and had to leave a message. Patient is not willing to consent without approval from her neice. 3. Continue Pantoprazole 40 mg daily. 4. Supportive medical management as appropriate. Thank you for allowing us to participate in the care of this pleasant patient. If you have any questions or concerns, please do not hesitate to contact us. Agree with TATIANNA Becerril as above Abd: Soft, NT, ND, +BS Left message for SHAYY Aden at , as I am trying to obtain consent for EGD Continue current therapy EGD on 03/20/2017 if we can obtain consent
[2017-03-19 14:12] LABS: HEMATOCRIT 24.8 % (37-47)
[2017-03-19 15:44] VITALS: BP 114/67; PULSE 67; TEMP 36.3; O2SAT 96
[2017-03-19 16:00] VITALS: O2SAT 96
--- NOTE | 2017-03-19 19:47 | Progress Note ---
Subjective Date of Service: Mar 19, 2017. Subjective Pt evaluation today including: conversation w/ patient, physical exam, chart review, lab review, review of inpatient medication list feeling better more oriented no new complaints no abdominal pain no ongoing bleeding she's aware of no cp no sob not too weak/lightheaded or dizzy notes that she doesn't really want too much done, would prefer less invasive management when possible Problem List Medical Problems: (1) Altered mental status Status: Acute (2) Anemia Status: Acute (3) Current use of fdc anticoagulation Status: Acute (4) GI bleed Status: Acute (5) Sepsis Status: Acute (6) Sepsis Status: Acute Review of Systems all other ROS otherwise negative except for as above Objective Vital Signs Date Time Temp Pulse Resp B/P (MAP) Pulse Ox O2 Delivery O2 Flow Rate FiO2 03/19/17 16:00 96 Nasal Cannula 2.0 03/19/17 15:44 36.3 67 18 114/67 (83) 96 Nasal Cannula 2.0 03/19/17 08:00 98 Nasal Cannula 2.0 03/19/17 07:28 36.3 64 18 103/56 (72) 98 Nasal Cannula 2.0 03/19/17 00:10 Nasal Cannula 2.0 03/18/17 23:32 36.3 65 20 135/80 (98) 95 Nasal Cannula 2.0 Physical Exam General Appearance: no apparent distress Eyes: EOMI ENT: hearing grossly normal Neck: trachea midline Respiratory/Chest: no respiratory distress, no accessory muscle use Abdomen: non tender (no guarding/rebound/rigidity), soft Neurologic/Psychiatric: copper plater II-XII nml as tested, alert, normal mood/affect Skin: normal color, warm/dry Laboratory Results Last 24 Hours Test 03/19/17 01:53 03/19/17 07:43 03/19/17 13:37 Hemoglobin 7.3 g/dL 7.2 g/dL 7.3 g/dL Hematocrit 24.3 % 24.2 % 24.8 % White Blood Count 4.06 K/uL Red Blood Count 2.53 M/uL Mean Corpuscular Volume 95.7 fL Mean Corpuscular Hemoglobin 28.5 pg Mean Corpuscular Hemoglobin Concent 29.8 g/dl Platelet Count 172 K/uL Mean Platelet Volume 9.3 fL Neutrophils (%) (Auto) 56.9 % Lymphocytes (%) (Auto) 22.2 % Monocytes (%) (Auto) 16.0 % Eosinophils (%) (Auto) 4.4 % Basophils (%) (Auto) 0.5 % Neutrophils # (Auto) 2.31 K/uL Lymphocytes # (Auto) 0.90 K/uL Monocytes # (Auto) 0.65 K/uL Eosinophils # (Auto) 0.18 K/uL Basophils # (Auto) 0.02 K/uL RDW Standard Deviation 77.2 fL RDW Coefficient of Variation 22.0 % Immature Granulocyte % (Auto) 0.0 % Immature Granulocyte # (Auto) 0.00 K/uL Polychromasia 1+ Hypochromasia PRESENT Anisocytosis PRESENT Prothrombin Time 29.4 SECONDS Prothromb Time International Ratio 2.9 Sodium Level 138 mmol/L Potassium Level 4.5 mmol/L Chloride Level 106 mmol/L Carbon Dioxide Level 26 mmol/L Anion Gap 7.0 mmol/L Blood Urea Nitrogen 63 mg/dl Creatinine 1.91 mg/dl Est Creatinine Clear Calc Drug Dose 27.2 ml/min Estimated GFR () 28.4 Estimated GFR (Non- 24.5 BUN/Creatinine Ratio 32.7 Random Glucose 97 mg/dl Calcium Level 8.8 mg/dl Magnesium Level 2.5 mg/dl Iron Level 29 mcg/dl Total Iron Binding Capacity 427 mcg/dl Ferritin 55.9 ng/ml Assessment and Plan - Metabolic encephalopathy: has resolved multifactorial, could be anemia and LUIS on CKD will observe for any further changes, none have been noted - LUIS on CKD: hold nephrotoxins, may be related to blood and volume loss, if doesn't improve w fluids and hodling lasix by tomorrow may need transfusion on this ground - Acute on chronic anemia: probably due to slow GI bleed on Coumadin heme occult stools - POSITIVE hold on transfusion for now as above, and hemodynamically stable she's not sure if she would want endoscopic w/u - knows that this could be from something treatable such as ulcers or something disasterous such as a cancer - but wouldn't want further interventions if it was so --> may simply be holding coumadin and following - no ongoing bleeding - Chronic diastolic HF: no signs of volume overload holding Lasix with LUIS, reassess volume status and renal function tomorrow - Paroxysmal atrial fibrillation: continue Amiodarone hold Coumadin due to heme positive stools and anemia follow INR - Diarrhea: started last admission with antibiotic use Cdiff negative - positive urine culture w recent UTI obligated to treat - cefazolin for now pending further ID&S
[2017-03-19 20:05] LABS: HEMATOCRIT 24.9 % (37-47)
[2017-03-19 23:11] VITALS: BP 114/73; PULSE 59; TEMP 36.3; O2SAT 96
[2017-03-20] MEDS: CEFAZOLIN IV 1,000 MG in SYRINGE 0 ML IV SCH ×3 (00:37→15:09)
[2017-03-20] MEDS: GABAPENTIN 300 MG CAP PO SCH ×2 (05:52→14:14)
[2017-03-20] MEDS: LEVOTHYROXINE 137 MCG TAB PO SCH (05:52)
[2017-03-20 07:00] LABS: PROTHROMBIN TIME (PATIENT) 30.4 SECONDS (9.0-12.0)
[2017-03-20 07:29] VITALS: BP 111/62; PULSE 67; TEMP 36.4; O2SAT 94
[2017-03-20] MEDS: SODIUM CHLORIDE 0.9% 1000ML 1,000 ML IV SCH ×2 (07:36→15:09)
[2017-03-20] MEDS: ATORVASTATIN 10 MG TAB PO SCH (08:30)
[2017-03-20] MEDS: METOPROLOL TARTRATE 25 MG TAB PO SCH (08:30)
[2017-03-20] MEDS: POTASSIUM CHLORIDE 10 MEQ TABCR PO SCH (08:30)
[2017-03-20] MEDS: AMIODARONE 200 MG TAB PO SCH (08:30)
[2017-03-20] MEDS: RANITIDINE HCL 150 MG TAB PO SCH (08:31)
[2017-03-20] MEDS: PANTOprazole SOD 40 MG TAB PO SCH (08:31)
[2017-03-20] MEDS: ALPRAZOLAM 0.5 MG TAB PO SCH (08:31)
[2017-03-20 08:59] LABS: HEMATOCRIT 24.1 % (37-47); MEAN CORPUSCULAR HEMOGLOBIN 29.5 pg (25-34); MEAN CORPUSCULAR HGB CONC 30.7 g/dl (32-36); MEAN PLATELET VOLUME 9.6 fL (7.4-10.4); PLATELET COUNT 196 K/uL (130-400); RED BLOOD COUNT 2.51 M/uL (4.2-5.4); WHITE BLOOD COUNT 5.03 K/uL (4.8-10.8)
[2017-03-20 09:17] LABS: CALCIUM 9.1 mg/dl (8.5-10.1); CREATININE 1.99 mg/dl (0.60-1.20); POTASSIUM 4.8 mmol/L (3.5-5.1)
[2017-03-20] MEDS: ASPIRIN 81 MG CHEW PO SCH (12:21)
[2017-03-20] MEDS ORDERED: CEPH500C2 PO ×2 (13:33)
--- NOTE | 2017-03-20 13:48 | Discharge Instructions ---
Discharge Instructions Date of Service Mar 20, 2017. Admission Reason for Admission: Steven, Altered Mental Status Discharge Discharge Diagnosis / Problem: Acute Kidney Injury on CKD; Acute on Chronic Anemia Discharge Goals Goal(s): Decrease discomfort, Improve function, Increase independence Activity Recommendations Activity Level: Assistance Required . Additional Information Patient informed of condition: Yes Advance Directives: Yes DNR: No Level of Care: Skilled Communicable Disease: No Prognosis: Stable Instructions / Follow-Up Instructions / Follow-Up Metabolic Encephalopathy: RESOLVED - Suspect possibly from anemia or STEVEN on CKD - patient is alert and oriented with intermittent confusion but at baseline STEVEN on CKD: - Baseline appears to be staying around 1.5-1.7 and currently at 1.9 - Lasix has been held and IVF given but remains stable - Suspect this acute finding may be related to drop in hemoglobin. - Recommend to continue to hold Lasix for the next 2-3 days and will obtain an updated BMP for evaluation. Recommend to continue to monitor for fluid retention that may warrant reinstitution Acute on Chronic Anemia: - Stable x past 3 readings around 7.5 but baseline appears closer to 9 - Had a discussion with patient who is alert and oriented and she states she did not want a blood transfusion; wanted us to discuss with her niece who gives consent and explained the situation that we would do this transfusion to bring her numbers closer to her baseline and see if this changes her kidney function and explained that patient stated she didn't want a transfusion. Niece stated that if she is alert and with it to refuse she did not want to override this. - Recommend CBC on 03/22 and then would do twice weekly for the next 2-3 weeks to determine stabilization - Heme stool positive - discussed possibility of scope and again patient stated she did not want this performed. Recalls that her living will said no invasive things and states she would not aggressively treat any findings. Discussed this with her niece as well. - Plan to hold Coumadin and continue to follow - no further signs of bleeding noted in-hospital Chronic Diastolic CHF: STABLE - No signs of volume overload currently; recommend to continue to hold lasix next 2-3 days and assess with updated BMP - Recommend BMP on 03/22 and do twice weekly with the CBC for next 2-3 weeks to assess kidney function Paroxysmal Atrial Fibrillation: - Continue Amiodarone but will HOLD Coumadin at this time Diarrhea: C. Diff Negative - Continue probiotics Urinary Tract Infection: - Complete treatment wit Keflex 250 mg BID that is renally dosed for current kidney function Current Hospital Diet Patient's current hospital diet: AHA Diet (Heart Healthy) Discharge Diet Recommended Diet: AHA Diet (Heart Healthy) Pending Studies Studies pending at discharge: no Laboratory Results Hemoglobin A1c Test 02/24/17 06:48 Range/Units Estimated Average Glucose 157 mg/dl Hemoglobin A1c 7.1 H 4.5-5.6 % Lipid Panel Test 02/24/17 06:48 Range/Units Triglycerides Level 131 0-150 mg/dl Cholesterol Level 112 0-200 mg/dl HDL Cholesterol 41 mg/dl Cholesterol/HDL Ratio 2.7 LDL Cholesterol, Calculated 45 mg/dl Medical Emergencies . Who to Call and When: Medical Emergencies: If at any time you feel your situation is an emergency, please call 911 immediately. . Non-Emergent Contact Non-Emergency issues call your: Primary Care Provider Call Non-Emergent contact if: you have a fever, your pain is concerning you, you have any medication questions . . "Provider Documentation" section prepared by Gay Kunz. . Core Measure Problem Core Measures: None
[2017-03-20] MEDS ORDERED: FRS/40 PO ×2 (13:49)
--- NOTE | 2017-03-20 15:26 | Discharge Summary ---
Discharge Summary Date of Service Mar 20, 2017. Discharge Summary Admission Date: Mar 18, 2017 at 14:16 Discharge Date: Mar 20, 2017 Discharge Disposition: [facility] facility Principal Diagnosis: Metabolic Encephalopathy with UTI, LUIS, Anemia Problems/Secondary Diagnoses: 1. CKD Stage III 2. CAD S/P CABG 3. Diverticulosis 4. HLD 5. GERD 6. TIA 7. HTN 8. OA Immunizations: Have You Had Influenza Vaccine: Unknown Influenza Vaccine Date: Jan 09, 2013 History of Tetanus Vaccine?: Unknown History of Pneumococcal: Unknown History of Hepatitis B Vaccine: Unknown Procedures: HEAD WITHOUT CONTRAST (CT) FINDINGS: No acute intracranial hemorrhage, midline shift, intracranial mass, hydrocephalus, territorial ischemia or abnormal extra-axial collection. Mild to moderate atrophy. Chronic microvascular ischemic changes. The calvarium is intact. Left mastoid air cells are nearly completely opacified. Fluid is also noted within the left middle ear cavity. Trace right mastoid effusion. Paranasal sinuses are generally clear. Soft tissues are unremarkable. Prior bilateral cataract repair. IMPRESSION: 1. No acute intracranial abnormality. 2. Large left and small right mastoid effusions with fluid also noted within the left middle ear cavity. CHEST ONE VIEW PORTABLE FINDINGS: Cardiac silhouette is again moderately enlarged. Atherosclerosis of the aorta. Prior median sternotomy. Lungs are hypoinflated without pneumothorax. There are small bilateral pleural effusions with hazy bibasilar opacities, pulmonary vascular congestion and interstitial coarsening. Bones of the chest appear grossly intact. IMPRESSION: 1. Cardiomegaly with mild pulmonary edema. 2. Small bilateral pleural effusions with bibasilar opacities suggesting atelectasis or less likely pneumonia. Consultations: 1. Gastroenterology Medication Reconciliation Changed Medications: Cephalexin Monohydrate (Keflex) 500 Mg Cap 250 MG PO BID for 3 Days, CAP (Changed from: 500 MG; Removed Quantity) Furosemide (Lasix) 40 Mg Tab 40 MG PO BID for 14 Days, TAB (Medication details modified) HOLD next 2-3 days and continue to assess fluid status. Continued Medications: Acetaminophen (Tylenol) 325 Mg Tab 650 MG PO BID PRN for Pain or Fever, TAB Alprazolam (Xanax) 0.5 Mg Tab 0.5 MG PO BID, TAB Amiodarone Hcl (Cordarone) 200 Mg Tab 200 MG PO DAILY, TAB Aspirin (Aspirin Chewable) 81 Mg Chew 81 MG PO QAM, TAB Atorvastatin (Lipitor) 10 Mg Tab 10 MG PO DAILY, TAB Cholecalciferol (Vitamin D) 2,000 Unit Tab 2000 UNITS PO QAM Cranberry-Vitamin C-Vitamin E (Cranberry Plus Vitamin C 4200-20-3 mg-Unit) 1 Cap Cap 1 TAB PO DAILY Diphenhydramine Hcl (Benadryl Allergy) 25 Mg Tab 25 MG PO Q8 PRN for Itching Docusate Sodium (Docusate Sodium) 100 Mg Cap 2 CAP PO HS for 15 Days, CAP Gabapentin (Gabapentin) 300 Mg Cap 300 MG PO Q8, #60 Guaifenesin Ext Rel (Mucinex Ext Rel) 600 Mg Tabcr 1200 MG PO Q12 for 10 Days, #40 TAB 0 Refills Ipratropium Wild Horse (Ipratropium Wild Horse) 0.5 Mg/2.5 Ml Nebu 0.5 MG INH Q6H for 10 Days, 0 Refills Ketoconazole (Topical) (Ketoconazole) 2 % Sha 1 APPLN TOP QPM Lactobacillus Acidophilus (Floranex) 1 Tab Tab 4 TAB PO TIDM for 7 Days, #84 TAB 0 Refills Levothyroxine Sodium (Synthroid) 137 Mcg Tab 137 MCG PO DAILY Metoprolol Tartrate (Lopressor) (Lopressor) 25 Mg Tab 12.5 MG PO BID HOLD TILL 03/19 Pantoprazole (Protonix) 40 Mg Tab 40 MG PO DAILY, #30 TAB Polyethylene Glycol-Propylene (Systane) 1 Kendra Kendra 1 DROPS OPB DAILY, #30 ML 5 Refills Potassium Chloride (Micro-K Ext Rel) 10 Meq Capcr 10 MEQ PO DAILY, CAP Ranitidine Hcl (Zantac) 150 Mg Tab 150 MG PO BID, TAB Valacyclovir Hcl (Valtrex) 1 Gm Tab 1 GM PO QAM, #21 TAB Discontinued Medications: Warfarin Sod (Jantoven) 3 Mg Tab 3 MG PO DAILY, TAB Discharge Exam Review of Systems: Constitutional: No fever, No chills Respiratory: No cough, No shortness of breath Cardiovascular: No chest pain Abdomen: No pain, No nausea, No vomiting, No diarrhea, No constipation Musculoskeletal: No swelling, No calf pain Genitourinary - Female: No dysuria Hematologic / Lymphatic: No abnormal bleeding/bruising Physical Exam: General Appearance: WD/WN, no apparent distress Eyes: sclerae normal ENT: hearing grossly normal Neck: supple, no JVD, trachea midline Respiratory/Chest: no respiratory distress, no accessory muscle use, + decreased breath sounds Cardiovascular: regular rate, rhythm Abdomen / GI: normal bowel sounds, non tender, soft Extremities: no pedal edema Neurologic/Psychiatric: alert, oriented x 3 Skin: normal color, warm/dry Hospital Course ADMISSION: 81 yo female with history of paraplegia with below the waist paralysis, resides at [facility], h/o CKD, chronic diastolic HF, hypertension. Patient was recently admitted to [facility] for 4 days from 02/23 to for sepsis related to UTI. Treated with Rocephin and then discharged on Keflex for extended course. She had some loose stools with the antibiotics and was prescribed probiotics. Per the patient, she says she has felt well since her discharge, no new issues. She has been eating and drinking well, no pain, no dyspnea. This morning she was found to be unresponsive which was an acute change so she was sent to the ED for evaluation. Here in the ED her vitals were stable, afebrile. No leukocytosis. Her Hb was low at 7.7, was 10 on discharge two weeks ago. Her Cr was up to 1.88 and BUN in the 60's which are both higher than her baseline. In spring of last year her baseline Cr was 0.9. More recently it has been 1.4-1.5 range. Again, when asked, the patient says her diet and oral intake have been normal. She is unsure if she has had any melena. Her stools have continued to be loose since discharge. CT head was normal and CXR showed some atelectasis. We were asked to admit patient for her altered mental status. HOSPITAL COURSE: Ms. Sanches was admitted for Metabolic Encephalopathy likely due to LUIS, UTI, and/or Anemia. Encephalopathy has resolved as she is at baseline mentation. Her Hgb has remained stable at 7.5 with baseline around 8- 10 on previous labs. No direct sources of active bleeding noted. Coumadin has been held and plan to continue to hold this medication and conservative watching. Gastroenterology saw patient and discussed possible scope but patient wanted her niece to give consent due to underlying dementia. However, patient is alert and oriented with intermittent confusion but states she does not want a scope. She did want to discuss with her niece but stated she would not plan on doing invasive interventions if something was found on the scope. Discussed with niece who states that she would not force her aunt to do something she does not want to do if she is in the right state of mind to decline. Recommend to have biweekly labs at least initially for the next 2-3 weeks to monitor Hgb. In regards to to kidney function, question this could possibly be from lower then her normal blood counts. She was given IVF and Lasix held but Cr stayed stable. Discussed blood transfusion with patient, she wanted her niece to be called and discuss with her but then stated that "I really don't want a blood transfusion". Again, she is alert and oriented and understood and reiterated the reasoning. Talked with niece about this as well who stated she wouldn't force her to do something she didn't want. Again will obtain ongoing labs to evaluate. Recommended to hold Lasix 2-3 more days but to monitor fluid balance. At this time patient does not appear fluid overloaded. She is growing Klebsiella in her urine and will complete Keflex 250 mg BID x 3 days for renal dosing. She is asymptomatic from a urinary standpoint. Patient expressed that she would like to return to [facility] today. i personally examined pt and verified all ashley points w A Ze PAC feeling ok. no new problems. doesn't want scope. doesn't want transfusion at this time. would prefer monitoring at [facility] vitals noted nad breathing unlabored no pallor GI bleeding - related to warfarin - warfarin stopped, follow Hgb, BMP; follow as above, stable for return to [facility] Total Time Spent: Greater than 30 minutes This includes examination of the patient, discharge planning, medication reconciliation, and communication with other providers. Discharge Instructions Please refer to the electronic Patient Visit Report (Discharge Instructions) for additional information. Additional Copies To [facility]; Raffi Rollins M.D.
[2017-03-20 15:28] VITALS: BP 123/66; PULSE 61; TEMP 36.6; O2SAT 91
[2017-03-20 15:29] VITALS: BP 123/66; PULSE 61; TEMP 36.6; O2SAT 91
[2017-03-20 16:00] VITALS: O2SAT 91
== END 2017-03-20 19:57 ==
LOC: EDBD 11:00 → C.EDB 11:01 → C.4E 14:16 → ENRESERV 15:14
PROVIDERS: ADMIT Internal Medicine; ATTEND Family Medicine
DX: G93.41 Metabolic encephalopathy (principal); N39.0 Urinary tract infection, site not specified; N17.9 Acute kidney failure, unspecified; D64.9 Anemia, unspecified; I13.0 Hypertensive heart and chronic kidney disease with heart failure and stage 1 through stage 4 chronic kidney disease, or unspecified chronic kidney disease; N18.3 Chronic kidney disease, stage 3 (moderate); I50.9 Heart failure, unspecified; I25.10 Atherosclerotic heart disease of native coronary artery without angina pectoris; K21.9 Gastro-esophageal reflux disease without esophagitis; G25.0 Essential tremor; M81.0 Age-related osteoporosis without current pathological fracture; E78.5 Hyperlipidemia, unspecified; Z95.1 Presence of aortocoronary bypass graft; K57.30 Diverticulosis of large intestine without perforation or abscess without bleeding; M19.90 Unspecified osteoarthritis, unspecified site; M48.061 Spinal stenosis, lumbar region without neurogenic claudication; Z86.73 Personal history of transient ischemic attack (TIA), and cerebral infarction without residual deficits; Z79.01 Long term (current) use of anticoagulants; Z79.82 Long term (current) use of aspirin; Z79.899 Other long term (current) drug therapy

== ENCOUNTER → 2017-03-18 | Outpatient (CLI) | payer OTHER ==
[~2017-03-18] MED LIST changes: -CEPH500C PO; +CEPH500C2 PO; +FRS/40 PO; +KETO2SHA TOP; +METO25TA56 PO; +PANT1TAB3 PO; -PANT1TAB48 PO
[2017-03-18 08:56] LABS: BASO % 0.5 %; BASO ABS # 0.02 K/uL (0-0.2); EOS % 3.7 %; HEMATOCRIT 24.8 % (37-47); IG% 0.2 %; LYMPH % 21.8 %; LYMPH ABS # 0.89 K/uL (1.2-3.4); MEAN CELL VOLUME 94.7 fL (80-100); MEAN CORPUSCULAR HEMOGLOBIN 28.6 pg (25-34); MEAN CORPUSCULAR HGB CONC 30.2 g/dl (32-36); MEAN PLATELET VOLUME 10.5 fL (7.4-10.4); MONO % 15.6 %; NEUT % 58.2 %; PLATELET COUNT 197 K/uL (130-400); RED BLOOD COUNT 2.62 M/uL (4.2-5.4); WHITE BLOOD COUNT 4.09 K/uL (4.8-10.8)
[2017-03-18 09:02] LABS: INR 2.8 (0.9-1.1); PROTHROMBIN TIME (PATIENT) 29.3 SECONDS (9.0-12.0)
[2017-03-18 09:07] LABS: ALT/SGPT 22 U/L (12-78); BLOOD UREA NITROGEN 63 mg/dl (7-18); BUN/CREATININE RATIO 33.2 (10-20); CALCIUM 9.5 mg/dl (8.5-10.1); CARBON DIOXIDE 25 mmol/L (21-32); CHLORIDE 106 mmol/L (98-107); GLUCOSE 108 mg/dl (70-99); POTASSIUM 5.1 mmol/L (3.5-5.1); SODIUM 139 mmol/L (136-145)
[2017-03-18 09:14] LABS: ALB/GLOB RATIO 0.6 (0.9-2); ALKALINE PHOSPHATASE 63 U/L (45-117); AST/SGOT 28 U/L (15-37); THYROID STIMULATING HORMONE 0.208 uIu/ml (0.300-4.500)
[2017-03-18 09:18] LABS: ANISOCYTOSIS PRESENT; COMPLETE YES; HYPOCHROMIA PRESENT
== END ==
LOC: C.LABCC 08:25 → EDSTATUS 03-25 11:34
PROVIDERS: ATTEND Internal Medicine
DX: I48.91 Unspecified atrial fibrillation (principal); E03.9 Hypothyroidism, unspecified; R53.83 Other fatigue; R41.0 Disorientation, unspecified; L08.9 Local infection of the skin and subcutaneous tissue, unspecified; S91.301A Unspecified open wound, right foot, initial encounter; X58.XXXA Exposure to other specified factors, initial encounter